=== PATIENT | male | born 1940 | race Caucasian/White ===

== ENCOUNTER 2016-08-09 13:30 | Inpatient (IN) ==
[2016-08-09] MEDS ORDERED: Vancomycin 1,000 MG in D5% in Water 250 ML IV ONE (13:57)
[2016-08-09] MEDS ORDERED: Levofloxacin 750 MG/150 ML 750 MG/150 ML BAG IVPB ONE (13:57)
[2016-08-09] MEDS ORDERED: Piperacillin/Tazobactam 4.5 GM in D5% in Water (Mini-Bag+) 100 ML IVPB ONE (13:57)
[2016-08-09] MEDS ORDERED: 0.9 % Sodium Chloride 1,000 ML ONE (13:57)
[2016-08-09] MEDS ORDERED: Ipratropium/Albuterol Neb 3 ML IH ONE (13:58)
--- NOTE | 2016-08-09 13:59 | Emergency Department Note ---
Disposition Clinical Impression: HCAP (healthcare-associated pneumonia), Encephalopathy acute, Severe sepsis Acute respiratory failure Qualifiers: Respiratory failure complication: hypoxia and hypercapnia Qualified Code(s): J96.01 - Acute respiratory failure with hypoxia Disposition: Admitted As Inpatient Condition: Fair Altered Mental Status HPI - General Chief Complaint: ED Altered Mental Status Stated Complaint: AMS Time Seen by Provider: 08/09/16 13:53 Source: EMS Mode of arrival: ambulatory Limitations: no limitations Nursing Notes Reviewed: Yes Vital Signs Reviewed: Yes - History of Present Illness HPI Narrative: 75-year-old male that presents from nursing facility, history of NIDDM, atrial fibrillation, hypertension, mention, presents with altered mental state, markedly hypoglycemic with a blood glucose of 40 at the nursing facility he was given 1 amp of D50, and his blood glucose on arrival was 95. Review systems is impossible to obtain from the historian as he is altered with a GCS of 9, patients states that he was in his normal health yesterday, and this is a precipitous decline in his function. They have no clear reason why. He was febrile with a temp of 103, history is mostly obtained from EMS and family who are at bedside, they state that he has been chronically debilitated, and progressively weak over the last few days but his show no signs of infection. MD complaint: altered mental status Onset (ago): unknown Context: recent fever, diabetes, other (Glycemia, recent fever) Treatments prior to arrival: glucose - Related Data Home Medications Medication Instructions Recorded Confirmed Acetaminophen [Tylenol Arthritis] 650 mg PO Q6H PRN 08/09/16 08/09/16 Aspirin Enteric Coated [Aspirin EC] 81 mg PO DAILY 08/09/16 08/09/16 Atorvastatin [Lipitor] 40 mg PO HS 08/09/16 08/09/16 Divalproex (24 HR) [Depakote ER 1,250 mg PO DAILY 08/09/16 08/09/16 (24 HR)] Donepezil HCl [Aricept] 10 mg PO DAILY 08/09/16 08/09/16 Furosemide [Lasix] 40 mg PO DAILY 08/09/16 08/09/16 Gabapentin [Neurontin] 100 mg PO BID 08/09/16 08/09/16 Glucagon,Human Recombinant 1 mg IM Q15M PRN 08/09/16 08/09/16 [Glucagon Emergency Kit] HYDROcodone/Acet 5/325 mg [[place] 1 tab PO Q6H PRN 08/09/16 08/09/16 5-325 mg] Insulin ASPART [NovoLOG] 2 - 10 unit SQ ACHS 08/09/16 08/09/16 Insulin Glargine,Hum.rec.anlog 45 unit SQ QAM 08/09/16 08/09/16 [Lantus Solostar] Insulin Glargine,Hum.rec.anlog 75 unit SQ HS 08/09/16 08/09/16 [Lantus Solostar] Losartan [Cozaar] 25 mg PO DAILY 08/09/16 08/09/16 Memantine HCl 10 mg PO BID 08/09/16 08/09/16 Sertraline [Zoloft] 150 mg PO DAILY 08/09/16 08/09/16 Tamsulosin [Flomax] 0.4 mg PO DAILY 08/09/16 08/09/16 Vitamin E (Dl,Tocopheryl Acet) 400 unit PO DAILY 08/09/16 08/09/16 [Vitamin E] Allergies Allergy/AdvReac Type Severity Reaction Status Date / Time No Known Allergies Allergy Verified 08/09/16 13:49 Limitations: ROS unobtainable due to patients medical condition Past Medical History - Past Medical History Attestation: Yes The following information was validated with the patient. Source: patient Medical history: Reports: arthritis, atrial fibrillation, CHF, COPD, coronary artery disease, dementia, diabetes, hypertension, renal disease, venous stasis Psychiatric history: Reports: anxiety, depression - Social History Smoking Status: Never smoker Drug use: Reports: none Physical Exam - General Limitations: altered mental status General appearance: lethargic, in distress (Acute respiratory distress), other - Head Head exam: atraumatic, normocephalic - Eye Eye exam: Present: PERRL - ENT ENT exam: mucous membranes dry - Neck Neck exam: Present: normal inspection, full ROM - Respiratory Respiratory exam: Present: respiratory distress (Severe respiratory distress, diminished breath sounds at the bases with crackles bibasilar crackles right greater than left). Absent: normal lung sounds bilaterally, wheezes - Cardiovascular Cardiovascular exam: Present: tachycardia, irregular rhythm (Atrial fibrillation ). Absent: regular rate - Abdominal Exam Abdominal exam: Present: Non-Tender. Absent: tenderness, distention - Expanded Lower Extremity Exam Neurovascular/Tendon exam: Absent: normal capillary refill (Delayed capillary refill greater than 2 seconds) - Neurological Exam Neurological exam: Present: CN II-XII intact (Grossly intact). Absent: alert, normal gait (An tested secondary to mental state), motor sensory deficit - Expanded Neurological Exam Patient oriented to: Absent: person, place, time Coma Scale Eye Opening: To Pain Coma Scale Motor Response: Localizes to Pain Coma Scale Verbal Response: Incomprehensible Coma Scale Total: 9 Course Course Narrative: 75-year-old male with a GCS of 9, presents altered mental status, with a episode of hypoglycemia at the nursing facility however on my exam he appears septic, he is markedly tachycardic, febrile with a temperature of 103 and therefore meet surge criteria suspect pneumonia given his lung findings of crackles bilaterally. We will start the patient on broad-spectrum antibiotics after blood cultures are charts, adding lactate, 30 mg a liter per kilogram boluses added with 3000 mL ordered for the patient, we will reassess after septic workup - Reevaluation(s) Reevaluation #1: Patient did receive a 30 mL per kilogram bolus plus or -10% with 3000 and also ordered and a weight of 102 kg, he does seem a little bit volume overloaded after this we place the patient on BiPAP just for respiratory function and repeated a portable chest x-ray to make sure that the patient is not a volume overload, repeat portable chest shows similar findings, no evidence of flash pulmonary edema, therefore will not diurese in the inpatient setting, I spoke with Dr. Christiansen, and he will admit the patient to the ICU service. Patient expresses to his family previously that he would be not a candidate for mechanical ventilation therefore we will only use BiPAP at this time to support breathing or respirations and no intubation Vital Signs Temperature 103.1 F H 08/09/16 13:40 Pulse Rate 101 08/09/16 13:40 Respiratory Rate 18 08/09/16 13:40 Blood Pressure 88/71 08/09/16 13:40 O2 Sat by Pulse Oximetry 84 L 08/09/16 13:40 Temperature 102.6 F H 08/09/16 18:05 Pulse Rate 78 08/09/16 18:16 Respiratory Rate 26 08/09/16 18:05 Blood Pressure 113/69 08/09/16 18:05 O2 Sat by Pulse Oximetry 97 08/09/16 18:05 Oxygen Delivery Oxygen Delivery Room Air Altered Mental Status - MDM Narrative Medical decision making narrative: 75-year-old male with age Pneumonia sepsis, altered mental state admitted [facility] critical condition - Differential Diagnosis Likely: alcoholic intoxication, hypoglycemia, hyponatremia, subarachnoid hemorrhage - Medical Records Medical records reviewed: Yes I reviewed the patient's medical records. - Lab Data Lab results reviewed: Yes I reviewed the patient's lab results. Result diagrams: 08/09/16 14:25 08/09/16 14:25 Lab Results 08/09/16 08/09/16 08/09/16 Range/Units 14:00 14:07 14:10 WBC (4.3-11.1) K/mcL RBC (4.19-5.50) M/mcL Hgb (12.9-16.9) g/dL Hct (37.5-50.1) % MCV (83.0-100.0) fL MCH (28.0-33.3) pg MCHC (31.6-35.5) g/dL RDW (11.5-14.5) % Plt Count (140-400) K/mcL MPV (9.4-12.4) fL Immature Gran % (0-4) % Seg Neutrophils % % Lymphocytes % % Monocytes % % Eosinophils % % Basophils % % Neutrophils # (1.6-8.9) K/mcL Lymphocytes # (0.6-4.6) K/mcL Monocytes # (0.0-1.3) K/mcL Eosinophils # (0.0-0.6) K/mcL Basophils # (0.0-0.2) K/mcL PT (9.4-12.1) Seconds INR APTT (26.0-36.0) Seconds ABG pH 7.39 (7.32-7.45) pH Units ABG pCO2 50 H (35-45) mmHg ABG pO2 137 H (85-104) mmHg ABG HCO3 30.3 H (21-27) mEQ/L ABG Total CO2 31.8 H (20-26) mEq/L ABG O2 Saturation 99 H (95-98) % ABG Base Excess 4.4 H (-2.0 to 3.0) mEq/L Blood Gas Modality NRB Inspired O2 100 % Sodium (136-145) mEq/L Potassium (3.5-4.5) mEq/L Chloride (98-109) mEq/L Carbon Dioxide (19-29) mEq/L BUN (8-26) mg/dL Creatinine (0.72-1.25) mg/dL Est GFR ( Amer) (> 60) Est GFR (Non-Af Amer) (> 60) BUN/Creatinine Ratio (6-26) Glucose (70-99) mg/dL POC Glucose 87 (58-89) Calculated Osmolality (280-300) Lactic Acid (0.5-2.2) mmol/L Calcium (8.6-10.8) mg/dL Phosphorus (2.3-4.7) mg/dL Magnesium (1.6-2.6) mg/dL Total Bilirubin (0.2-1.2) mg/dL Direct Bilirubin (0.0-0.5) mg/dL Indirect Bilirubin (0.0-1.2) mg/dL AST (5-34) Units/L ALT (0-55) Units/L Alkaline Phosphatase (38-126) Units/L Troponin I (0-0.03) ng/mL Serum Total Protein (6.0-8.3) g/dL Albumin (3.5-5.0) g/dL Globulin (2.4-3.5) g/dL Albumin/Globulin Ratio (1.1-2.2) Urine Color Yellow (Yellow) Urine Clarity Clear (Clear) Urine pH 7.5 (5.0-8.0) pH Units Ur Specific [place] 1.016 (1.010-1.025) Urine Protein 100 H (Neg-Trace) mg/dL Urine Glucose (UA) Normal (Normal) mg/dL Urine Ketones Negative (Negative) mg/dL Urine Blood Negative (Negative) Urine Nitrite Negative (Negative) Urine Bilirubin Negative (Negative) Urine Urobilinogen Normal (Normal) mg/dL Ur Leukocyte Esterase Negative (Negative) Urine Microscopic RBC 3-5 H (0-3) per hpf Urine Microscopic WBC 0-3 (0-3) per hpf Ur Squamous Epith Cells Few (None-Few) per lpf Ur Transition Epith Cell Few (None-Few) per hpf Urine Bacteria Few (None-Few) per hpf Hyaline Casts None Seen (None-Few) per lpf Ur Culture Indicated? NO (NO) 08/09/16 08/09/16 08/09/16 Range/Units 14:25 14:25 14:25 WBC 10.0 (4.3-11.1) K/mcL RBC 4.08 L (4.19-5.50) M/mcL Hgb 13.0 (12.9-16.9) g/dL Hct 40.7 (37.5-50.1) % MCV 99.8 (83.0-100.0) fL MCH 31.9 (28.0-33.3) pg MCHC 31.9 (31.6-35.5) g/dL RDW 13.4 (11.5-14.5) % Plt Count 145 (140-400) K/mcL MPV 10.6 (9.4-12.4) fL Immature Gran % 0.7 (0-4) % Seg Neutrophils % 78.5 % Lymphocytes % 9.5 % Monocytes % 10.9 % Eosinophils % 0.0 % Basophils % 0.4 % Neutrophils # 7.8 (1.6-8.9) K/mcL Lymphocytes # 1.0 (0.6-4.6) K/mcL Monocytes # 1.1 (0.0-1.3) K/mcL Eosinophils # 0.0 (0.0-0.6) K/mcL Basophils # 0.0 (0.0-0.2) K/mcL PT 12.8 H (9.4-12.1) Seconds INR 1.2 APTT 32.9 (26.0-36.0) Seconds ABG pH (7.32-7.45) pH Units ABG pCO2 (35-45) mmHg ABG pO2 (85-104) mmHg ABG HCO3 (21-27) mEQ/L ABG Total CO2 (20-26) mEq/L ABG O2 Saturation (95-98) % ABG Base Excess (-2.0 to 3.0) mEq/L Blood Gas Modality Inspired O2 % Sodium 142 (136-145) mEq/L Potassium 4.4 (3.5-4.5) mEq/L Chloride 106 (98-109) mEq/L Carbon Dioxide 26 (19-29) mEq/L BUN 23 (8-26) mg/dL Creatinine 1.79 H (0.72-1.25) mg/dL Est GFR ( Amer) 45 L (> 60) Est GFR (Non-Af Amer) 37 L (> 60) BUN/Creatinine Ratio 13 (6-26) Glucose 84 (70-99) mg/dL POC Glucose (58-89) Calculated Osmolality 297 (280-300) Lactic Acid (0.5-2.2) mmol/L Calcium 8.6 (8.6-10.8) mg/dL Phosphorus 2.7 (2.3-4.7) mg/dL Magnesium 1.9 (1.6-2.6) mg/dL Total Bilirubin 0.9 (0.2-1.2) mg/dL Direct Bilirubin 0.4 (0.0-0.5) mg/dL Indirect Bilirubin 0.5 (0.0-1.2) mg/dL AST 24 (5-34) Units/L ALT 10 (0-55) Units/L Alkaline Phosphatase 53 (38-126) Units/L Troponin I (0-0.03) ng/mL Serum Total Protein 7.2 (6.0-8.3) g/dL Albumin 3.0 L (3.5-5.0) g/dL Globulin 4.2 H (2.4-3.5) g/dL Albumin/Globulin Ratio 0.7 L (1.1-2.2) Urine Color (Yellow) Urine Clarity (Clear) Urine pH (5.0-8.0) pH Units Ur Specific [place] (1.010-1.025) Urine Protein (Neg-Trace) mg/dL Urine Glucose (UA) (Normal) mg/dL Urine Ketones (Negative) mg/dL Urine Blood (Negative) Urine Nitrite (Negative) Urine Bilirubin (Negative) Urine Urobilinogen (Normal) mg/dL Ur Leukocyte Esterase (Negative) Urine Microscopic RBC (0-3) per hpf Urine Microscopic WBC (0-3) per hpf Ur Squamous Epith Cells (None-Few) per lpf Ur Transition Epith Cell (None-Few) per hpf Urine Bacteria (None-Few) per hpf Hyaline Casts (None-Few) per lpf Ur Culture Indicated? (NO) 08/09/16 08/09/16 08/09/16 Range/Units 14:25 14:25 14:37 WBC (4.3-11.1) K/mcL RBC (4.19-5.50) M/mcL Hgb (12.9-16.9) g/dL Hct (37.5-50.1) % MCV (83.0-100.0) fL MCH (28.0-33.3) pg MCHC (31.6-35.5) g/dL RDW (11.5-14.5) % Plt Count (140-400) K/mcL MPV (9.4-12.4) fL Immature Gran % (0-4) % Seg Neutrophils % % Lymphocytes % % Monocytes % % Eosinophils % % Basophils % % Neutrophils # (1.6-8.9) K/mcL Lymphocytes # (0.6-4.6) K/mcL Monocytes # (0.0-1.3) K/mcL Eosinophils # (0.0-0.6) K/mcL Basophils # (0.0-0.2) K/mcL PT (9.4-12.1) Seconds INR APTT (26.0-36.0) Seconds ABG pH (7.32-7.45) pH Units ABG pCO2 (35-45) mmHg ABG pO2 (85-104) mmHg ABG HCO3 (21-27) mEQ/L ABG Total CO2 (20-26) mEq/L ABG O2 Saturation (95-98) % ABG Base Excess (-2.0 to 3.0) mEq/L Blood Gas Modality Inspired O2 % Sodium (136-145) mEq/L Potassium (3.5-4.5) mEq/L Chloride (98-109) mEq/L Carbon Dioxide (19-29) mEq/L BUN (8-26) mg/dL Creatinine (0.72-1.25) mg/dL Est GFR ( Amer) (> 60) Est GFR (Non-Af Amer) (> 60) BUN/Creatinine Ratio (6-26) Glucose (70-99) mg/dL POC Glucose 86 (58-89) Calculated Osmolality (280-300) Lactic Acid 2.6 H (0.5-2.2) mmol/L Calcium (8.6-10.8) mg/dL Phosphorus (2.3-4.7) mg/dL Magnesium (1.6-2.6) mg/dL Total Bilirubin (0.2-1.2) mg/dL Direct Bilirubin (0.0-0.5) mg/dL Indirect Bilirubin (0.0-1.2) mg/dL AST (5-34) Units/L ALT (0-55) Units/L Alkaline Phosphatase (38-126) Units/L Troponin I 0.08 H* (0-0.03) ng/mL Serum Total Protein (6.0-8.3) g/dL Albumin (3.5-5.0) g/dL Globulin (2.4-3.5) g/dL Albumin/Globulin Ratio (1.1-2.2) Urine Color (Yellow) Urine Clarity (Clear) Urine pH (5.0-8.0) pH Units Ur Specific [place] (1.010-1.025) Urine Protein (Neg-Trace) mg/dL Urine Glucose (UA) (Normal) mg/dL Urine Ketones (Negative) mg/dL Urine Blood (Negative) Urine Nitrite (Negative) Urine Bilirubin (Negative) Urine Urobilinogen (Normal) mg/dL Ur Leukocyte Esterase (Negative) Urine Microscopic RBC (0-3) per hpf Urine Microscopic WBC (0-3) per hpf Ur Squamous Epith Cells (None-Few) per lpf Ur Transition Epith Cell (None-Few) per hpf Urine Bacteria (None-Few) per hpf Hyaline Casts (None-Few) per lpf Ur Culture Indicated? (NO) 08/09/16 Range/Units 15:49 WBC (4.3-11.1) K/mcL RBC (4.19-5.50) M/mcL Hgb (12.9-16.9) g/dL Hct (37.5-50.1) % MCV (83.0-100.0) fL MCH (28.0-33.3) pg MCHC (31.6-35.5) g/dL RDW (11.5-14.5) % Plt Count (140-400) K/mcL MPV (9.4-12.4) fL Immature Gran % (0-4) % Seg Neutrophils % % Lymphocytes % % Monocytes % % Eosinophils % % Basophils % % Neutrophils # (1.6-8.9) K/mcL Lymphocytes # (0.6-4.6) K/mcL Monocytes # (0.0-1.3) K/mcL Eosinophils # (0.0-0.6) K/mcL Basophils # (0.0-0.2) K/mcL PT (9.4-12.1) Seconds INR APTT (26.0-36.0) Seconds ABG pH (7.32-7.45) pH Units ABG pCO2 (35-45) mmHg ABG pO2 (85-104) mmHg ABG HCO3 (21-27) mEQ/L ABG Total CO2 (20-26) mEq/L ABG O2 Saturation (95-98) % ABG Base Excess (-2.0 to 3.0) mEq/L Blood Gas Modality Inspired O2 % Sodium (136-145) mEq/L Potassium (3.5-4.5) mEq/L Chloride (98-109) mEq/L Carbon Dioxide (19-29) mEq/L BUN (8-26) mg/dL Creatinine (0.72-1.25) mg/dL Est GFR ( Amer) (> 60) Est GFR (Non-Af Amer) (> 60) BUN/Creatinine Ratio (6-26) Glucose (70-99) mg/dL POC Glucose (58-89) Calculated Osmolality (280-300) Lactic Acid 2.2 (0.5-2.2) mmol/L Calcium (8.6-10.8) mg/dL Phosphorus (2.3-4.7) mg/dL Magnesium (1.6-2.6) mg/dL Total Bilirubin (0.2-1.2) mg/dL Direct Bilirubin (0.0-0.5) mg/dL Indirect Bilirubin (0.0-1.2) mg/dL AST (5-34) Units/L ALT (0-55) Units/L Alkaline Phosphatase (38-126) Units/L Troponin I (0-0.03) ng/mL Serum Total Protein (6.0-8.3) g/dL Albumin (3.5-5.0) g/dL Globulin (2.4-3.5) g/dL Albumin/Globulin Ratio (1.1-2.2) Urine Color (Yellow) Urine Clarity (Clear) Urine pH (5.0-8.0) pH Units Ur Specific [place] (1.010-1.025) Urine Protein (Neg-Trace) mg/dL Urine Glucose (UA) (Normal) mg/dL Urine Ketones (Negative) mg/dL Urine Blood (Negative) Urine Nitrite (Negative) Urine Bilirubin (Negative) Urine Urobilinogen (Normal) mg/dL Ur Leukocyte Esterase (Negative) Urine Microscopic RBC (0-3) per hpf Urine Microscopic WBC (0-3) per hpf Ur Squamous Epith Cells (None-Few) per lpf Ur Transition Epith Cell (None-Few) per hpf Urine Bacteria (None-Few) per hpf Hyaline Casts (None-Few) per lpf Ur Culture Indicated? (NO) - Radiology Data Radiology results reviewed: Yes I reviewed the patient's radiology results. Chest X-Ray 08/09/16 15:30 IMPRESSION: Worsening perihilar airspace disease with asymmetry at the right lung base which may represent asymmetric edema, atelectasis or developing pneumonia. D/ / 08/09/2016 15:54:40 Gonzales Rasmussen MD / flavia Interpreting Provider: Gonzales Rasmussen MD Head CT 08/09/16 16:11 IMPRESSION: 1. No acute intracranial abnormality. 2. Global parenchymal volume loss with chronic microvascular ischemic change. 3. Atherosclerosis. D/ / Jonah Vaughn MD / Jonah Vaughn MD Interpreting Provider: Jonah Vaughn MD - EKG Data EKG attestation: Yes I reviewed and interpreted this EKG. Rate: tachycardia (90 bpm QRS 73 QTc 395) Rhythm: A.Fib TPA Checklist - LKW: 3-4.5 hrs Add. Contraindications Patient/family understanding: The patient/family members have been counseled and understood the risk, benefit , and alternatives of treatment. Attestation Statement - Attestation Attestation: I examined this patient and my medical decision-making was reviewed with the Resident Physician. I agree with the documented findings, disposition and treatment plan as described except to the extent set forth below. Presents from [facility]CF w fever, tachy, AMS, SBP 88. Normally awake and conversant although demented, today is non-verbal. GCS E1 V1 M4 on my exam, family confirms DNR-CCA/DNI status. Oxygenating well on NRB mask. RN working on 2nd IV. Fluid bolus ordered. Has rales on right, suspect HCAP as source of sepsis, triple antibiotic therapy ordered. Will monitor closely. BP came up immediately with fluids, hypertense since. Lactate mildly elevated at 2.6. No change in mental status. BGLs stabilized after D50 administration, checked q20 min x 3. Allergist/Immunologist evaluated pt in ED along with his team, admitting to ICU. Critical care time: I was directly and primarily involved in the care of this pt for 35 minutes excluding procedures.
[2016-08-09 14:08] LABS: Bilirubin,Urine Negative (Negative); Blood,Urine Negative (Negative); Clarity,Urine Clear (Clear); Color,Urine Yellow (Yellow); Glucose,Urine (UA) Normal (Normal); Ketones,Urine Negative (Negative); Leukocyte Esterase,Urine Negative (Negative); Nitrite,Urine Negative (Negative); PH,Urine 7.5 pH Units (5.0-8.0); Protein,Urine 100 mg/dL (Neg-Trace); Specific Gravity,Urine 1.016 (1.010-1.025); Urobilinogen,Urine Normal (Normal)
[2016-08-09 14:09] LABS: Hyaline Casts,Urine None Seen per lpf (None-Few); WBC,Urine 0-3 per hpf (0-3)
[2016-08-09] MEDS ORDERED: Acetaminophen 650 MG RECTAL SUPP RC ONE (14:09)
[2016-08-09] MEDS: 0.9 % Sodium Chloride 1,000 ML IVC SCH ×4 (14:10→19:20)
[2016-08-09 14:19] LABS: Squamous Epithelial Cell,Urine Few per lpf (None-Few)
[2016-08-09 14:21] LABS: Transitional Epi Cells,Urine Few per hpf (None-Few)
[2016-08-09 14:22] LABS: Bacteria,Urine Few per hpf (None-Few)
[2016-08-09 14:25] LABS: ABG Base Excess 4.4 mEq/L (-2.0 to 3.0); ABG HCO3 30.3 mEQ/L (21-27); ABG Oxygen Saturation 99 % (95-98); ABG PCO2 50 mmHg (35-45); ABG PH 7.39 pH Units (7.32-7.45); ABG PO2 137 mmHg (85-104); ABG TCO2 31.8 mEq/L (20-26)
[2016-08-09 14:27] LABS: Blood Gas FiO2 100 %
[2016-08-09 14:47] LABS: Basophils % 0.4 %; Hematocrit 40.7 % (37.5-50.1); Immature Granulocytes % 0.7 % (0-4); Lymphocytes % 9.5 %; Mean Corpuscular HGB Conc 31.9 g/dL (31.6-35.5); Mean Corpuscular Hemoglobin 31.9 pg (28.0-33.3); Mean Corpuscular Volume 99.8 fL (83.0-100.0); Mean Platelet Volume 10.6 fL (9.4-12.4); Monocytes # 1.1 K/mcL (0.0-1.3); Monocytes % 10.9 %; Neutrophils # 7.8 K/mcL (1.6-8.9); Platelet Count 145 K/mcL (140-400); Red Blood Count 4.08 M/mcL (4.19-5.50); Red Cell Distribution Width 13.4 % (11.5-14.5); Segmented Neutrophils % 78.5 %
[2016-08-09 14:50] LABS: INR 1.2; Prothrombin Time 12.8 Seconds (9.4-12.1)
[2016-08-09 14:53] LABS: Activated Partial Thrombo Time 32.9 Seconds (26.0-36.0)
[2016-08-09 15:00] LABS: Albumin/Globulin Ratio 0.7 (1.1-2.2); Bilirubin,Direct 0.4 mg/dL (0.0-0.5); Bilirubin,Indirect 0.5 mg/dL (0.0-1.2); Bilirubin,Total 0.9 mg/dL (0.2-1.2); Calcium 8.6 mg/dL (8.6-10.8); Globulin 4.2 g/dL (2.4-3.5); Magnesium 1.9 mg/dL (1.6-2.6); Phosphorous 2.7 mg/dL (2.3-4.7); Potassium 4.4 mEq/L (3.5-4.5); Total Protein 7.2 g/dL (6.0-8.3)
[2016-08-09] MEDS ORDERED: Naloxone 0.4 MG/ML INJ IVP PRN (16:22)
[2016-08-09] MEDS ORDERED: Acetaminophen 325 MG TABLET PO PRN (16:22)
[2016-08-09] MEDS ORDERED: Ondansetron 4 MG/2 ML VIAL IVP PRN (16:22)
[2016-08-09] MEDS ORDERED: *HR* Morphine 2 MG/ML SYRINGE IVP PRN (16:22)
[2016-08-09] MEDS ORDERED: D5% in Water 1,000 ML IV PRN (16:28)
[2016-08-09] MEDS ORDERED: Dextrose Gel 15 GM PO PRN ×2 (16:28)
[2016-08-09] MEDS ORDERED: *HR* Dextrose 50 % in Water (Syg) 50 ML SYRINGE IVP PRN (16:28)
--- NOTE | 2016-08-09 16:31 | Event Note ---
Date of Encounter: 08/09/16 Time of Encounter: 16:30 Critical care attending note: The patient was seen and examined with the house staff. Full resident note to follow: 1. Acute respiratory failure with hypoxia 2. Severe sepsis 3. Encephalopathy 4. Hypoglycemia 5. Nausea with vomiting 6. DNR status 75-year-old white male with a history of dementia and diabetes who presented to the emergency room from an extended care facility with altered mental status and hypoglycemia. Per the family, the patient had been in his normal state of health until this morning when he had nausea and vomiting and altered mental status. His blood sugar at the [facility] was in the 40s and was medically treated. Workup in the emergency room revealed sepsis with fever tachycardia, hypotension, and altered mental status. He was given IV fluids with good response and placed on BiPAP for refractory hypoxia (given his underlying dementia he has a DNR CCA DNR) Hypoxia may be related to pneumonia and pulmonary edema. We will attempt to wean off BiPAP to high flow nasal cannula. We will try to avoid prolonged use of BiPAP given his encephalopathy. Sepsis with possible source being pneumonia. He certainly at risk for aspiration pneumonia and we will continue Zosyn. Blood cultures pending. We will check an MRSA nasal probe and a flu swab. He has been adequately volume resuscitated and is now hypertensive. Lactate is only minimally elevated and we will trend. No current need for central venous catheter or vasopressors. Encephalopathy may be due to hypoglycemia. We will check serial blood sugars and treat with glucose as needed. Given the degree of his encephalopathy, I am concerned that he may have had a prolonged episode of hypoglycemia. We are in the process of obtaining a CT scan of the head for further evaluation. Continue supportive measures and minimize sedating medications. We did discuss goals of care with the family. If he were to continue to deteriorate we will transition to comfort measures only and DNR CC status.
[2016-08-09] MEDS ORDERED: Acetaminophen 650 MG RECTAL SUPP RC PRN (16:36)
--- NOTE | 2016-08-09 16:45 | Pulmonology History & Physical ---
Date of Encounter: 08/09/16 Time of Encounter: 16:40 Assessment and Plan (1) Altered mental status Current visit: Yes Status: Acute 75-year-old male presented with altered mental status. Patient was found to be hypoglycemic by EMS. He received 1 amp of D50. Furthermore patient came with elevated temperature, hypotension, tachypnea, and tachycardia, hypoxia. He was initially placed on supplemental oxygen without success. Eventually patient was placed on BiPAP and his oxygenation improved. Patient is DNR CC arrest DNI. Furthermore patient was given fluids for resuscitation which improved his hypotension. ABG indicated hypercapnia. Patient also has an elevated creatinine but has a history of kidney disease. Furthermore his troponins were elevated at 0.08. EKG : afib with rate 90. Initial lactate was 2.6. Chest x-ray indicated possible left lower lobe pneumonia. Initial Chest x-ray indicates possible left lower lobe pneumonia and repeat chest x-ray showed worsening right perihilar infiltrate versus edema. Patient was given vancomycin and Zosyn. Altered mental status may be secondary to pneumonia, hypoglycemia. -We will order a head CT, hawkins culture, and start patient on Zosyn to cover risk of aspiration. -Weaned off BiPAP to high flow nasal cannula. -Trend troponin. -100 mL an hour normal saline. -Patient will be nothing by mouth, every 6 hours Accu-Cheks, and low-dose sliding scale every 6h -GI and DVT prophylaxis. -Acetaminophen suppository when necessary fever. -Repeat ABG, CBC and BMP in the morning Qualifiers: Altered mental status type: unspecified Qualified Code(s): R41.82 - Altered mental status, unspecified (2) Sepsis Current visit: Yes Status: Acute Qualifiers: Sepsis type: sepsis due to unspecified organism Qualified Code(s): A41.9 - Sepsis, unspecified organism (3) Acute respiratory failure Current visit: Yes Status: Acute Qualifiers: Respiratory failure complication: hypoxia and hypercapnia Qualified Code(s) : J96.01 - Acute respiratory failure with hypoxia; J96.02 - Acute respiratory failure with hypercapnia (4) Community acquired pneumonia Current visit: Yes Status: Suspected (5) DVT prophylaxis Current visit: Yes Status: Acute (6) Hypoglycemia Current visit: Yes Status: Acute Resolved. Patient currently is nothing by mouth. Every 6 hours Accu-Cheks. (7) Diabetes mellitus Current visit: Yes Status: Acute Qualifiers: Diabetes mellitus type: type 2 Diabetes mellitus complication status: without complication Diabetes mellitus long distance operator insulin use: with long distance operator use Qualified Code(s): E11.9 - Type 2 diabetes mellitus without complications ; Z79.4 - terminal operator (current) use of insulin History of Present Illness Chief complaint: AMS HPI: Mr. Thrasher is a 75 year old male hx of a fib, CHF, dementia, diabetes, HTn, presented to ER with altered mental status, nausea, vomiting. Patients family said couple days back he was playing checkers. He was found hypoglycemic by EMS with glucose of 40 and was given an amp of close. Patient also presented with tachycardia, hypotension. He was resuscitated with fluids and put on BiPAP for hypoxia. During my encounter patient's vitals are stable after stated interventions. Past Med Surg Social Fam HX - Past Medical History Medical history: arthritis, atrial fibrillation, CHF, COPD, coronary artery disease, dementia, diabetes, hypertension, renal disease, venous stasis Psychiatric history: anxiety, depression - Social History Smoking Status: Never smoker Drug use: none Medications and Allergies Acetaminophen [Tylenol Arthritis] 650 mg PO Q6H PRN 08/09/16 [History] Aspirin Enteric Coated [Aspirin EC] 81 mg PO DAILY 08/09/16 [History] Atorvastatin [Lipitor] 40 mg PO HS 08/09/16 [History] Divalproex (24 HR) [Depakote ER (24 HR)] 1,250 mg PO DAILY 08/09/16 [History] Donepezil HCl [Aricept] 10 mg PO DAILY 08/09/16 [History] Furosemide [Lasix] 40 mg PO DAILY 08/09/16 [History] Gabapentin [Neurontin] 100 mg PO BID 08/09/16 [History] Glucagon,Human Recombinant [Glucagon Emergency Kit] 1 mg IM Q15M PRN 08/09/16 [ History] HYDROcodone/Acet 5/325 mg [[place] 5-325 mg] 1 tab PO Q6H PRN 08/09/16 [History] Insulin ASPART [NovoLOG] 2 - 10 unit SQ ACHS 08/09/16 [History] Insulin Glargine,Hum.rec.anlog [Lantus Solostar] 45 unit SQ QAM 08/09/16 [ History] Insulin Glargine,Hum.rec.anlog [Lantus Solostar] 75 unit SQ HS 08/09/16 [History ] Losartan [Cozaar] 25 mg PO DAILY 08/09/16 [History] Memantine HCl 10 mg PO BID 08/09/16 [History] Sertraline [Zoloft] 150 mg PO DAILY 08/09/16 [History] Tamsulosin [Flomax] 0.4 mg PO DAILY 08/09/16 [History] Vitamin E (Dl,Tocopheryl Acet) [Vitamin E] 400 unit PO DAILY 08/09/16 [History] Allergies No Known Allergies Allergy (Verified 08/09/16 13:49) ROS unobtainable: due to mental status All Systems: A 10-system review of systems was performed and is negative for pertinent findings except as documented above in the HPI. Physical Examination Vital Signs: Vital Signs, Last 4 Hours Pulse Resp BP Pulse Ox 08/09/16 16:19 93 24 122/69 97 General appearance: asleep, other (Unconscious) Eyes: nonicteric Mallampati (class): 3 Neck: no JVD Effort: mildly labored (On BiPAP), other Auscultation: left: clear, right: rales Cardiovascular: regular rate and rhythm Gastrointestinal: normoactive bowel sounds, soft, non-tender Integumentary: normal Extremities: no cyanosis, no edema, no clubbing, pulses normal unable to assess due to mental status Results - Laboratory Findings CBC and BMP: 08/09/16 14:25 08/09/16 14:25 ABG ABG pH 7.39 pH Units (7.32-7.45) 08/09/16 14:10 ABG pCO2 50 mmHg (35-45) H 08/09/16 14:10 ABG pO2 137 mmHg (85-104) H 08/09/16 14:10 ABG O2 Saturation 99 % (95-98) H 08/09/16 14:10 PT/INR, D-dimer PT 12.8 Seconds (9.4-12.1) H 08/09/16 14:25 Abnormal lab findings: Abnormal lab results RBC 4.08 M/mcL (4.19-5.50) L 08/09/16 14:25 PT 12.8 Seconds (9.4-12.1) H 08/09/16 14:25 ABG pCO2 50 mmHg (35-45) H 08/09/16 14:10 ABG pO2 137 mmHg (85-104) H 08/09/16 14:10 ABG HCO3 30.3 mEQ/L (21-27) H 08/09/16 14:10 ABG Total CO2 31.8 mEq/L (20-26) H 08/09/16 14:10 ABG O2 Saturation 99 % (95-98) H 08/09/16 14:10 ABG Base Excess 4.4 mEq/L (-2.0 to 3.0) H 08/09/16 14:10 Creatinine 1.79 mg/dL (0.72-1.25) H 08/09/16 14:25 Est GFR ( Amer) 45 (> 60) L 08/09/16 14:25 Est GFR (Non-Af Amer) 37 (> 60) L 08/09/16 14:25 Troponin I 0.08 ng/mL (0-0.03) H* 08/09/16 14:25 Albumin 3.0 g/dL (3.5-5.0) L 08/09/16 14:25 Globulin 4.2 g/dL (2.4-3.5) H 08/09/16 14:25 Albumin/Globulin Ratio 0.7 (1.1-2.2) L 08/09/16 14:25 Urine Protein 100 mg/dL (Neg-Trace) H 08/09/16 14:00 Urine Microscopic RBC 3-5 per hpf (0-3) H 08/09/16 14:00
[2016-08-09] MEDS: Insulin LISPRO 300 UNITS/3 ML VIAL SQ SCH (19:13)
[2016-08-09] MEDS: *HR* Heparin 5,000 UNIT/ML VIAL SQ SCH (19:19)
[2016-08-09 21:19] LABS: 2009 H1N1 PCR NOT DETECTED (Not Detect); Influenza A PCR Negative (Negative); Influenza B PCR Negative (Negative)
[2016-08-09] MEDS: Piperacillin/Tazobactam 3.375 GM in D5% in Water (Mini-Bag+) 100 ML IVPB SCH (23:35)
[2016-08-10] MEDS: Insulin LISPRO 300 UNITS/3 ML VIAL SQ SCH ×4 (00:04→16:39)
[2016-08-10 05:00] LABS: Hematocrit 33.6 % (37.5-50.1); Hemoglobin 10.7 g/dL (12.9-16.9); Immature Platelets 5.7 % (1.1-6.1); Mean Corpuscular HGB Conc 31.8 g/dL (31.6-35.5); Mean Corpuscular Hemoglobin 31.9 pg (28.0-33.3); Mean Corpuscular Volume 100.3 fL (83.0-100.0); Mean Platelet Volume 11.3 fL (9.4-12.4); Platelet Count 111 K/mcL (140-400); Red Blood Count 3.35 M/mcL (4.19-5.50); Red Cell Distribution Width 13.8 % (11.5-14.5)
[2016-08-10 05:01] LABS: INR 1.5; Prothrombin Time 16.2 Seconds (9.4-12.1)
[2016-08-10 05:03] LABS: Calcium 8.1 mg/dL (8.6-10.8); Potassium 4.8 mEq/L (3.5-4.5)
[2016-08-10 05:36] LABS: Lymphocytes # 3.1 K/mcL (0.6-4.6); Monocytes # 1.3 K/mcL (0.0-1.3); Neutrophils # 8.5 K/mcL (1.6-8.9); Platelet Estimate Decreased (Normal)
[2016-08-10] MEDS: 0.9 % Sodium Chloride 1,000 ML IVC SCH (05:45)
[2016-08-10 05:52] LABS: ABG Base Excess 1.4 mEq/L (-2.0 to 3.0); ABG HCO3 27.2 mEQ/L (21-27); ABG Oxygen Saturation 97 % (95-98); ABG PCO2 47 mmHg (35-45); ABG PH 7.37 pH Units (7.32-7.45); ABG PO2 89 mmHg (85-104); ABG TCO2 28.6 mEq/L (20-26); Blood Gas FiO2 36 %
[2016-08-10] MEDS: *HR* Heparin 5,000 UNIT/ML VIAL SQ SCH ×2 (06:03→16:30)
[2016-08-10] MEDS: Piperacillin/Tazobactam 3.375 GM in D5% in Water (Mini-Bag+) 100 ML IVPB SCH ×3 (09:12→23:19)
[2016-08-10] MEDS: Pantoprazole 40 MG VIAL IVPB SCH (09:12)
--- NOTE | 2016-08-10 09:40 | Pulmonology Progress Note ---
Date of Encounter: 08/10/16 Time of Encounter: 09:38 Assessment and Plan (1) Altered mental status Current Visit: Yes Status: Acute 75-year-old male presented with altered mental status. Patient was found to be hypoglycemic by EMS. He received 1 amp of D50. Furthermore patient came with elevated temperature, hypotension, tachypnea, and tachycardia, hypoxia. He was initially placed on supplemental oxygen without success. Eventually patient was placed on BiPAP and his oxygenation improved. Patient is DNR CC arrest DNI. Furthermore patient was given fluids for resuscitation which improved his hypotension. ABG indicated hypercapnia. Patient also has an elevated creatinine but has a history of kidney disease. Furthermore his troponins were elevated at 0.08. EKG : afib with rate 90. Initial lactate was 2.6. Chest x-ray indicated possible left lower lobe pneumonia. Initial Chest x-ray indicates possible left lower lobe pneumonia and repeat chest x-ray showed worsening right perihilar infiltrate versus edema. Patient was given vancomycin and Zosyn. Altered mental status may be secondary to pneumonia, hypoglycemia. -awake and alert to self only -Head Ct negative -Weaned off of BiPAP to 4L NC -pt/ot -Speech cleared patient for nectar thick diet. -Diabetic diet. Qualifiers: Altered mental status type: unspecified Qualified Code(s): R41.82 - Altered mental status, unspecified (2) Sepsis Current Visit: Yes Status: Acute Presented tachycardic, febrile, tachypnic -vital signs are normal now -X-ray showed possible r lobe pneumonia -Patient received vancomycin and Zosyn in the emergency department. -As patient arrived unconscious there is a possibility of aspiration -Sputum cultures preliminarily negative. -Continue Zosyn day 2. -d/c fluids. Qualifiers: Sepsis type: sepsis due to unspecified organism Qualified Code(s): A41.9 - Sepsis, unspecified organism (3) Acute respiratory failure Current Visit: Yes Status: Resolved resolved. 2nd to pneumonia. -continue abx and supplemental oxygen. Qualifiers: Respiratory failure complication: hypoxia and hypercapnia Qualified Code(s) : J96.01 - Acute respiratory failure with hypoxia; J96.02 - Acute respiratory failure with hypercapnia (4) Community acquired pneumonia Current Visit: Yes Status: Acute Currently treating with zosyn. Awaiting final results of culture and urine antigens. (5) DVT prophylaxis Current Visit: Yes Status: Acute heparin SQ (6) Hypoglycemia Current Visit: Yes Status: Resolved Resolved. Diabetic diet. ACHS accuchecks. Diabetic diet (7) Diabetes mellitus Current Visit: Yes Status: Acute continue low dose sliding scale. Qualifiers: Diabetes mellitus type: type 2 Diabetes mellitus complication status: without complication Diabetes mellitus tank terminal gauger insulin use: with usp use Qualified Code(s): E11.9 - Type 2 diabetes mellitus without complications ; Z79.4 - senior care (current) use of insulin (8) CKD (chronic kidney disease) Current Visit: Yes Status: Acute hx of CKD. Baseline creatinine is 1.79 Creatinine bumped to 2.3: KELSEY on CKD due to sepsis/hypotension Will continue to monitor with BMP. Qualifiers: Chronic kidney disease stage: stage 3 (moderate) Qualified Code(s): N18.3 - Chronic kidney disease, stage 3 (moderate) Subjective Principal diagnosis: Acute metabolic encephalopathy Interval history: Awake, alert. NO overnight events. Denies CP, sob, cough, nasuea, vomiting, abdominal pain. Objective PUL Vital signs: Last Vital Signs Temp 97.3 F L 08/10/16 07:46 Pulse 80 08/10/16 09:00 Resp 23 08/10/16 09:00 BP 118/89 08/10/16 09:00 Pulse Ox 99 08/10/16 09:00 General appearance: alert (to self only ) Eyes: nonicteric ENT: oropharynx moist Mallampati (class): 2 Effort: normal Auscultation: bilateral: clear Cardiovascular: regular rate and rhythm Gastrointestinal: normoactive bowel sounds, soft, non-tender Integumentary: normal Extremities: no cyanosis, no edema, no clubbing mood appropriate Results - Laboratory Findings CBC and BMP: 08/10/16 04:02 08/10/16 02:06 ABG ABG pH 7.37 pH Units (7.32-7.45) 08/10/16 04:36 ABG pCO2 47 mmHg (35-45) H 08/10/16 04:36 ABG pO2 89 mmHg (85-104) 08/10/16 04:36 ABG O2 Saturation 97 % (95-98) 08/10/16 04:36 PT/INR, D-dimer PT 16.2 Seconds (9.4-12.1) H 08/10/16 04:02 Abnormal lab findings: Abnormal lab results WBC 12.8 K/mcL (4.3-11.1) H 08/10/16 04:02 RBC 3.35 M/mcL (4.19-5.50) L 08/10/16 04:02 Hgb 10.7 g/dL (12.9-16.9) L D 08/10/16 04:02 Hct 33.6 % (37.5-50.1) L 08/10/16 04:02 MCV 100.3 fL (83.0-100.0) H 08/10/16 04:02 Plt Count 111 K/mcL (140-400) L 08/10/16 04:02 Band Neutrophils % 6.0 % (0-4) H 08/10/16 04:02 Platelet Estimate Decreased (Normal) L 08/10/16 04:02 PT 16.2 Seconds (9.4-12.1) H 08/10/16 04:02 ABG pCO2 47 mmHg (35-45) H 08/10/16 04:36 ABG HCO3 27.2 mEQ/L (21-27) H 08/10/16 04:36 ABG Total CO2 28.6 mEq/L (20-26) H 08/10/16 04:36 Potassium 4.8 mEq/L (3.5-4.5) H 08/10/16 02:06 BUN 34 mg/dL (8-26) H D 08/10/16 02:06 Creatinine 2.31 mg/dL (0.72-1.25) H 08/10/16 02:06 Est GFR ( Amer) 34 (> 60) L 08/10/16 02:06 Est GFR (Non-Af Amer) 28 (> 60) L 08/10/16 02:06 Glucose 151 mg/dL (70-99) H 08/10/16 02:06 POC Glucose 101 (58-89) H 08/09/16 23:32 Calculated Osmolality 303 (280-300) H 08/10/16 02:06 Calcium 8.1 mg/dL (8.6-10.8) L 08/10/16 02:06 Troponin I 0.15 ng/mL (0-0.03) H* 08/10/16 02:06 Albumin 3.0 g/dL (3.5-5.0) L 08/09/16 14:25 Globulin 4.2 g/dL (2.4-3.5) H 08/09/16 14:25 Albumin/Globulin Ratio 0.7 (1.1-2.2) L 08/09/16 14:25 Urine Protein 100 mg/dL (Neg-Trace) H 08/09/16 14:00 Urine Microscopic RBC 3-5 per hpf (0-3) H 08/09/16 14:00 - Microbiology Findings Microbiology Findings: Microbiology, Last 48 Hours 08/09/16 22:43 Sputum Culture - Final Sputum - Clinical Findings Intake & Output: Intake & Output 08/09/16 08/10/16 08/10/16 23:59 07:59 15:59 Intake Total 1100 / 1100 Output Total 425 / 425 200 / 200 Balance -425 / -425 900 / 900 Weight 94.3 kg - VTE Documentation of Mechanical Device: Intermittent pneumatic compression device Consult Discharge Plan - Plan Referrals: NO,PCP [Primary Care Provider] -
[2016-08-10 11:13] LABS: Uric Acid 6.1 mg/dL (3.5-7.2)
--- NOTE | 2016-08-10 12:48 | Electrocardiograph Report ---
[place] [id number] Test Date: 2016-08-09 Pat Name: Rhys Thrasher Department: 104 Room: [facility] Gender: M Automatic Hemmer: : 1940 Requested By: Ricardo Perry Order Number: [id number] Reading MD: Celestine Stallworth MD Measurements Intervals [place] Rate: 98 P: [place]: 0 QRS: 51 QRSD: 73 T: 245 QT: 339 QTc: 395 Interpretive Statements ATRIAL FIBRILLATION Electronically Signed On 08-10-2016 12:46:37 EDT by Celestine Stallworth MD
[2016-08-10 13:24] LABS: Creatinine,Urine 99 mg/dL
[2016-08-10 13:26] LABS: Potassium,Urine 81.6 mEq/L
[2016-08-10 13:27] LABS: Chloride,Urine < 20 mEq/L
[2016-08-10 13:29] LABS: Valproate 21.65 mcg/mL (50-100)
[2016-08-10] MEDS: Nystatin SUSP 5 ML UD.LIQ PO SCH ×2 (16:51→21:27)
[2016-08-10] MEDS ORDERED: Insulin LISPRO 300 UNITS/3 ML VIAL SQ SCH (21:00)
[2016-08-11] MEDS: *HR* Heparin 5,000 UNIT/ML VIAL SQ SCH ×2 (05:52→17:58)
[2016-08-11 06:06] LABS: Basophils # 0.1 K/mcL (0.0-0.2); Basophils % 0.5 %; Hematocrit 35.2 % (37.5-50.1); Immature Granulocytes % 1.7 % (0-4); Lymphocytes # 1.1 K/mcL (0.6-4.6); Lymphocytes % 11.3 %; Mean Corpuscular HGB Conc 32.1 g/dL (31.6-35.5); Mean Corpuscular Hemoglobin 31.9 pg (28.0-33.3); Mean Corpuscular Volume 99.4 fL (83.0-100.0); Mean Platelet Volume 11.8 fL (9.4-12.4); Monocytes # 1.5 K/mcL (0.0-1.3); Neutrophils # 6.7 K/mcL (1.6-8.9); Platelet Count 102 K/mcL (140-400); Red Blood Count 3.54 M/mcL (4.19-5.50); Red Cell Distribution Width 13.6 % (11.5-14.5); Segmented Neutrophils % 70.5 %
[2016-08-11 06:14] LABS: Hemoglobin 11.3 g/dL (12.9-16.9)
[2016-08-11 06:21] LABS: Albumin/Globulin Ratio 0.6 (1.1-2.2); Bilirubin,Total 0.8 mg/dL (0.2-1.2); Calcium 8.8 mg/dL (8.6-10.8); Globulin 4.1 g/dL (2.4-3.5); Total Protein 6.4 g/dL (6.0-8.3)
[2016-08-11 06:24] LABS: Albumin 2.3 g/dL (3.5-5.0)
[2016-08-11 06:26] LABS: Potassium 5.6 mEq/L (3.5-4.5)
[2016-08-11] MEDS: Insulin LISPRO 300 UNITS/3 ML VIAL SQ SCH ×6 (08:02→21:17)
[2016-08-11] MEDS: Nystatin SUSP 5 ML UD.LIQ PO SCH ×4 (08:20→21:17)
[2016-08-11] MEDS: Pantoprazole 40 MG VIAL IVPB SCH (08:20)
[2016-08-11] MEDS: Piperacillin/Tazobactam 3.375 GM in D5% in Water (Mini-Bag+) 100 ML IVPB SCH (08:20)
--- NOTE | 2016-08-11 08:30 | Pulmonology Progress Note ---
Date of Encounter: 08/11/16 Time of Encounter: 08:28 Assessment and Plan (1) Altered mental status Current Visit: Yes Status: Resolved 75-year-old male presented with altered mental status. Patient was found to be hypoglycemic by EMS. He received 1 amp of D50. Furthermore patient came with elevated temperature, hypotension, tachypnea, and tachycardia, hypoxia. He was initially placed on supplemental oxygen without success. Eventually patient was placed on BiPAP and his oxygenation improved. Patient is DNR CC arrest DNI. Furthermore patient was given fluids for resuscitation which improved his hypotension. ABG indicated hypercapnia. Patient also has an elevated creatinine but has a history of kidney disease. Furthermore his troponins were elevated at 0.08. EKG : afib with rate 90. Initial lactate was 2.6. CXR indicates pneumonia. Patient was given vancomycin and Zosyn. Altered mental status may be secondary to pneumonia, hypoglycemia. -resolved -awake and alert to self only -Head Ct negative -continue O2 supplementation. Can wean down -pt/ot -Speech cleared patient for nectar thick diet. -Diabetic diet. Qualifiers: Altered mental status type: unspecified Qualified Code(s): R41.82 - Altered mental status, unspecified (2) Sepsis Current Visit: Yes Status: Acute Presented tachycardic, febrile, tachypnic -vital signs are normal now -X-ray showed possible r lobe pneumonia -Patient received vancomycin and Zosyn in the emergency department. -As patient arrived unconscious there is a possibility of aspiration -Sputum cultures negative -Continue Zosyn day 3. Qualifiers: Sepsis type: sepsis due to unspecified organism Qualified Code(s): A41.9 - Sepsis, unspecified organism (3) Acute respiratory failure Current Visit: Yes Status: Resolved resolved. 2nd to pneumonia. -continue abx and supplemental oxygen. -duonebs Q6H PRN Qualifiers: Respiratory failure complication: hypoxia and hypercapnia Qualified Code(s) : J96.01 - Acute respiratory failure with hypoxia; J96.02 - Acute respiratory failure with hypercapnia (4) CKD (chronic kidney disease) Current Visit: Yes Status: Acute hx of CKD. Baseline creatinine is 1.79 Creatinine leveling off today it is 2.2: KELSEY on CKD due to sepsis/hypotension/ hypoperfusion Will continue to monitor with BMP. -d/c losartan start amlodipine. -hyperkalemic- given one kayexalate. Qualifiers: Chronic kidney disease stage: stage 3 (moderate) Qualified Code(s): N18.3 - Chronic kidney disease, stage 3 (moderate) (5) Community acquired pneumonia Current Visit: Yes Status: Acute Currently treating with zosyn. -wbc wnl Awaiting final results of culture -urine antigens negative (6) DVT prophylaxis Current Visit: Yes Status: Acute heparin SQ (7) Diabetes mellitus Current Visit: Yes Status: Acute Controlled. continue low dose sliding scale. Started on basal and prepradial insulin renal dosed CrCl- 40. Qualifiers: Diabetes mellitus type: type 2 Diabetes mellitus complication status: without complication Diabetes mellitus buttermaker helper insulin use: with custodial use Qualified Code(s): E11.9 - Type 2 diabetes mellitus without complications ; Z79.4 - shelter (current) use of insulin (8) Hypoglycemia Current Visit: Yes Status: Resolved Resolved. Diabetic diet. ACHS accuchecks. continue insulin regimen. Subjective Principal diagnosis: Acute metabolic encephalopathy Interval history: Patient eating breakfast this morning. Has no complaints. Objective PUL Vital signs: Last Vital Signs Temp 99.9 F H 08/11/16 07:43 Pulse 84 08/11/16 06:00 Resp 24 08/11/16 06:00 BP 150/78 08/11/16 06:00 Pulse Ox 97 08/11/16 06:00 General appearance: no acute distress, alert (to self ) Eyes: nonicteric ENT: oropharynx moist Mallampati (class): 2 Effort: normal Auscultation: left: rhonchi (upper lobe) Cardiovascular: irregular rhythm (afib regular rate) Gastrointestinal: normoactive bowel sounds, soft, non-tender Extremities: no cyanosis, no edema, no clubbing mood appropriate Results - Laboratory Findings CBC and BMP: 08/11/16 05:50 08/11/16 05:50 ABG ABG pH 7.37 pH Units (7.32-7.45) 08/10/16 04:36 ABG pCO2 47 mmHg (35-45) H 08/10/16 04:36 ABG pO2 89 mmHg (85-104) 08/10/16 04:36 ABG O2 Saturation 97 % (95-98) 08/10/16 04:36 PT/INR, D-dimer PT 16.2 Seconds (9.4-12.1) H 08/10/16 04:02 Abnormal lab findings: Abnormal lab results RBC 3.54 M/mcL (4.19-5.50) L 08/11/16 05:50 Hgb 11.3 g/dL (12.9-16.9) L 08/11/16 05:50 Hct 35.2 % (37.5-50.1) L 08/11/16 05:50 Plt Count 102 K/mcL (140-400) L 08/11/16 05:50 Band Neutrophils % 6.0 % (0-4) H 08/10/16 04:02 Monocytes # 1.5 K/mcL (0.0-1.3) H 08/11/16 05:50 Platelet Estimate Decreased (Normal) L 08/10/16 04:02 PT 16.2 Seconds (9.4-12.1) H 08/10/16 04:02 ABG pCO2 47 mmHg (35-45) H 08/10/16 04:36 ABG HCO3 27.2 mEQ/L (21-27) H 08/10/16 04:36 ABG Total CO2 28.6 mEq/L (20-26) H 08/10/16 04:36 Potassium 5.6 mEq/L (3.5-4.5) H 08/11/16 05:50 BUN 47 mg/dL (8-26) H D 08/11/16 05:50 Creatinine 2.20 mg/dL (0.72-1.25) H 08/11/16 05:50 Est GFR ( Amer) 36 (> 60) L 08/11/16 05:50 Est GFR (Non-Af Amer) 29 (> 60) L 08/11/16 05:50 Glucose 261 mg/dL (70-99) H 08/11/16 05:50 POC Glucose 199 (58-89) H 08/10/16 19:42 Calculated Osmolality 313 (280-300) H 08/11/16 05:50 AST 35 Units/L (5-34) H 08/11/16 05:50 Alkaline Phosphatase 36 Units/L (38-126) L 08/11/16 05:50 Ammonia 17 mcmol/L (18-72) L 08/10/16 10:44 Creatine Kinase 330 Units/L (30-200) H 08/10/16 10:44 Troponin I 0.11 ng/mL (0-0.03) H* 08/10/16 16:28 Albumin 2.3 g/dL (3.5-5.0) L D 08/11/16 05:50 Globulin 4.1 g/dL (2.4-3.5) H 08/11/16 05:50 Albumin/Globulin Ratio 0.6 (1.1-2.2) L 08/11/16 05:50 Urine Protein 100 mg/dL (Neg-Trace) H 08/09/16 14:00 Urine Microscopic RBC 3-5 per hpf (0-3) H 08/09/16 14:00 Valproic Acid 21.65 mcg/mL (50-100) L 08/10/16 10:44 - Microbiology Findings Microbiology Findings: Microbiology, Last 48 Hours 08/09/16 22:43 Sputum Culture - Final Sputum - Clinical Findings Intake & Output: Intake & Output 08/10/16 08/11/16 08/11/16 23:59 07:59 15:59 Intake Total 100 / 100 340 / 340 Output Total 600 / 600 500 / 500 Balance -500 / -500 -160 / -160 Weight 96 kg - VTE Documentation of Mechanical Device: Intermittent pneumatic compression device Consult Discharge Plan - Plan Referrals: NO,PCP [Primary Care Provider] -
[2016-08-11] MEDS ORDERED: Divalproex (24 HR) 250 MG TABLET PO SCH (09:00)
[2016-08-11] MEDS ORDERED: Furosemide 40 MG TABLET PO SCH (09:00)
[2016-08-11] MEDS ORDERED: amLODIPine 5 MG TABLET PO SCH (09:00)
[2016-08-11] MEDS ORDERED: Aspirin Enteric Coated 81 MG Tablet PO SCH (09:00)
[2016-08-11] MEDS ORDERED: Acetaminophen 650 MG RECTAL SUPP RC PRN (11:29)
[2016-08-11] MEDS ORDERED: D5% in Water 1,000 ML IV PRN (11:29)
[2016-08-11] MEDS ORDERED: Ondansetron 4 MG/2 ML VIAL IVP PRN (11:29)
[2016-08-11] MEDS ORDERED: Naloxone 0.4 MG/ML INJ IVP PRN (11:29)
[2016-08-11] MEDS ORDERED: Dextrose Gel 15 GM PO PRN ×2 (11:29)
[2016-08-11] MEDS ORDERED: *HR* Dextrose 50 % in Water (Syg) 50 ML SYRINGE IVP PRN (11:29)
[2016-08-11] MEDS ORDERED: Insulin LISPRO 300 UNITS/3 ML VIAL SQ SCH (12:00)
--- NOTE | 2016-08-11 16:32 | Electrocardiograph Report ---
[place] [id number] Test Date: 2016-08-09 Pat Name: Rhys Thrasher Department: 109 Room: [facility] Gender: M Home Coordinator: : 1940 Requested By: Nacho Tolbert Order Number: [id number] Reading MD: Natali Scott Measurements Intervals [place] Rate: 83 P: 62 MD: 298 QRS: 14 QRSD: 74 T: 50 QT: 366 QTc: 405 Interpretive Statements SINUS RHYTHM WITH FIRST DEGREE AV BLOCK NONSPECIFIC T-WAVE ABNORMALITY Electronically Signed On 08-11-2016 16:30:48 EDT by Natali Sctot
[2016-08-11] MEDS ORDERED: Insulin DETEMIR 100 UNIT/ML X5UNITS SQ SCH (21:00)
[2016-08-11] MEDS: Insulin DETEMIR 100 UNIT/ML X5UNITS SQ SCH (21:40)
[2016-08-12] MEDS: *HR* Heparin 5,000 UNIT/ML VIAL SQ SCH ×2 (05:43→16:51)
[2016-08-12] MEDS: Nystatin SUSP 5 ML UD.LIQ PO SCH ×4 (08:29→20:34)
[2016-08-12] MEDS: amLODIPine 5 MG TABLET PO SCH (08:29)
[2016-08-12] MEDS: Furosemide 40 MG TABLET PO SCH (08:30)
[2016-08-12] MEDS: Divalproex (24 HR) 250 MG TABLET PO SCH (08:31)
[2016-08-12] MEDS: Insulin LISPRO 300 UNITS/3 ML VIAL SQ SCH ×7 (08:31→20:34)
[2016-08-12] MEDS: Aspirin Enteric Coated 81 MG Tablet PO SCH (08:31)
[2016-08-12] MEDS: Pantoprazole 40 MG VIAL IVP SCH (08:32)
--- NOTE | 2016-08-12 17:12 | Internal Med Progress Note ---
Date of Encounter: 08/12/16 Time of Encounter: 14:15 - Assessment and plan (1) Acute respiratory failure Current Visit: Yes Status: Acute Assessment and plan: secondary to PNA and fluid overload from resuscitation. Not on oxygen at SNF. On admission, Chest x-ray shows left lower lobe pneumonia. Repeat chest x-ray showed worsening right perihilar infiltrate versus edema. Required BIPAP, now tolerating 4L high flow nasal cannula. continue ceftriaxone , furosemide, and nebs. Qualifiers: Respiratory failure complication: hypoxia Qualified Code(s): J96.01 - Acute respiratory failure with hypoxia (2) Community acquired pneumonia Current Visit: Yes Status: Acute Assessment and plan: bacterial pna. plan as above. (3) Encephalopathy acute Current Visit: Yes Status: Acute Assessment and plan: metabolic encephalopathy secondary to hypoglycemia, hypoxia, sepsis, pna in the setting on underlying dementia. improved. treating underlying etiology. (4) Acute renal failure superimposed on chronic kidney disease Current Visit: Yes Status: Acute Assessment and plan: unknown baseline kidney function. acute renal failure secondary to hypovolemia from sepsis and cardiorenal from fluid overload. adequate urine output. continue lasix. close monitor. avoid nephrotoxins as possible. (5) Hypoglycemia Current Visit: Yes Status: Resolved Assessment and plan: secondary to sepsis. resolved. (6) Sepsis Current Visit: Yes Status: Acute Assessment and plan: resolved. secondary to PNA. Qualifiers: Sepsis type: sepsis due to unspecified organism Qualified Code(s): A41.9 - Sepsis, unspecified organism (7) Dementia Current Visit: Yes Status: Acute Assessment and plan: at baseline. Qualifiers: Dementia type: unspecified type Dementia behavioral disturbance: without behavioral disturbance Qualified Code(s): F03.90 - Unspecified dementia without behavioral disturbance (8) CAD (coronary artery disease) Current Visit: Yes Status: Acute Assessment and plan: resume home meds. stable Qualifiers: Coronary Disease-Associated Artery/Lesion type: [place] artery [place] vs. transplanted heart: [place] heart Associated angina: without angina Qualified Code(s): I25.10 - Atherosclerotic heart disease of [place] coronary artery without angina pectoris (9) Diabetes mellitus Current Visit: Yes Status: Acute Assessment and plan: fasting glucose is 147. continue levemir 14 hs, sliding scale and diabetic diet. 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 - Constitutional Vitals: Temp Pulse Resp BP Pulse Ox 98.1 F 62 14 137/55 95 08/12/16 15:21 08/12/16 15:21 08/12/16 15:21 08/12/16 15:21 08/12/16 15:21 General appearance: Present: cooperative, no acute distress, answers questions appropriately - Eye Eye exam: Present: PERRL, sclera anicteric - ENT ENT exam: Present: mucous membranes moist - Neck Neck exam general surgery: Present: supple, trachea midline. Absent: lymphadenopathy - Respiratory Respiratory exam: Present: decreased breath sounds, rhonchi - Cardiovascular Cardiovascular exam: Present: RRR - GI/Abdominal GI/Abdominal exam: Present: soft. Absent: distended, tenderness - Extremities Exam Extremities exam: Present: pedal edema - Back Exam Back exam: Absent: CVA tenderness (L), CVA tenderness (R) - Neurological Exam Neurological exam: Present: alert. Absent: facial droop Additional comments: he is very weak but able to roll over to left side and take a few deep breaths. - Skin Skin exam: Present: dry Internal Medicine: Result - Labs CBC & Chem 7: 08/11/16 05:50 08/11/16 17:50 Labs: BMP 08/11/16 17:50 Potassium 4.3 D - ABG Interpretation ABG results: ABG ABG pH 7.37 pH Units (7.32-7.45) 08/10/16 04:36 ABG pCO2 47 mmHg (35-45) H 08/10/16 04:36 ABG pO2 89 mmHg (85-104) 08/10/16 04:36 ABG O2 Saturation 97 % (95-98) 08/10/16 04:36 PT/INR, D-dimer PT 16.2 Seconds (9.4-12.1) H 08/10/16 04:02 - VTE Documentation of Mechanical Device: Intermittent pneumatic compression device Consult Discharge Plan - Plan Referrals: NO,PCP [Primary Care Provider] -
[2016-08-12] MEDS: Insulin DETEMIR 100 UNIT/ML X5UNITS SQ SCH (20:34)
[2016-08-13] MEDS: *HR* Heparin 5,000 UNIT/ML VIAL SQ SCH ×2 (06:24→16:54)
[2016-08-13 06:35] LABS: Basophils % 0.4 %; Eosinophils % 0.3 %; Hematocrit 30.6 % (37.5-50.1); Hemoglobin 10.2 g/dL (12.9-16.9); Immature Granulocytes % 2.1 % (0-4); Lymphocytes # 1.2 K/mcL (0.6-4.6); Lymphocytes % 17.5 %; Mean Corpuscular HGB Conc 33.3 g/dL (31.6-35.5); Mean Platelet Volume 12.4 fL (9.4-12.4); Monocytes # 1.2 K/mcL (0.0-1.3); Monocytes % 17.5 %; Neutrophils # 4.2 K/mcL (1.6-8.9); Platelet Count 117 K/mcL (140-400); Red Blood Count 3.09 M/mcL (4.19-5.50); Red Cell Distribution Width 13.5 % (11.5-14.5); Segmented Neutrophils % 62.2 %
[2016-08-13 06:51] LABS: Calcium 8.3 mg/dL (8.6-10.8); Magnesium 1.9 mg/dL (1.6-2.6); Potassium 3.9 mEq/L (3.5-4.5)
[2016-08-13] MEDS: Furosemide 40 MG TABLET PO SCH (08:36)
[2016-08-13] MEDS: Aspirin Enteric Coated 81 MG Tablet PO SCH (08:36)
[2016-08-13] MEDS: amLODIPine 5 MG TABLET PO SCH (08:36)
[2016-08-13] MEDS: Divalproex (24 HR) 250 MG TABLET PO SCH (08:37)
[2016-08-13] MEDS: Pantoprazole 40 MG VIAL IVP SCH (08:37)
[2016-08-13] MEDS: Insulin LISPRO 300 UNITS/3 ML VIAL SQ SCH ×7 (08:37→20:27)
[2016-08-13] MEDS: Nystatin SUSP 5 ML UD.LIQ PO SCH ×4 (08:37→20:24)
--- NOTE | 2016-08-13 17:43 | Internal Med Progress Note ---
Date of Encounter: 08/13/16 Time of Encounter: 13:00 - Assessment and plan (1) Acute respiratory failure Current Visit: Yes Status: Acute Assessment and plan: secondary to PNA and fluid overload from resuscitation. Not on oxygen at SNF. On admission, Chest x-ray shows left lower lobe pneumonia. Repeat chest x-ray showed worsening right perihilar infiltrate versus edema. Required BIPAP. Clinically slowly improving, now tolerating 3L of oxygen via nasal cannula. Continue ceftriaxone, furosemide, and nebs. Qualifiers: Respiratory failure complication: hypoxia Qualified Code(s): J96.01 - Acute respiratory failure with hypoxia (2) Community acquired pneumonia Current Visit: Yes Status: Acute Assessment and plan: bacterial pna. plan as above. (3) Encephalopathy acute Current Visit: Yes Status: Acute Assessment and plan: metabolic encephalopathy secondary to hypoglycemia, hypoxia, sepsis, pna in the setting on underlying dementia. improved. treating underlying etiology. (4) Acute renal failure superimposed on chronic kidney disease Current Visit: Yes Status: Acute Assessment and plan: unknown baseline kidney function. acute renal failure secondary to hypovolemia from sepsis and cardiorenal from fluid overload. adequate urine output. kidney function is improving. continue lasix. close monitor. avoid nephrotoxins as possible. (5) Hypoglycemia Current Visit: Yes Status: Resolved Assessment and plan: secondary to sepsis. resolved. (6) Sepsis Current Visit: Yes Status: Acute Assessment and plan: resolved. secondary to PNA. Qualifiers: Sepsis type: sepsis due to unspecified organism Qualified Code(s): A41.9 - Sepsis, unspecified organism (7) Dementia Current Visit: Yes Status: Acute Assessment and plan: at baseline. Qualifiers: Dementia type: unspecified type Dementia behavioral disturbance: without behavioral disturbance Qualified Code(s): F03.90 - Unspecified dementia without behavioral disturbance (8) CAD (coronary artery disease) Current Visit: Yes Status: Acute Assessment and plan: resume home meds. stable Qualifiers: Coronary Disease-Associated Artery/Lesion type: [place] artery [place] vs. transplanted heart: [place] heart Associated angina: without angina Qualified Code(s): I25.10 - Atherosclerotic heart disease of [place] coronary artery without angina pectoris (9) Diabetes mellitus Current Visit: Yes Status: Acute Assessment and plan: fasting glucose is 154. continue levemir 14 hs, sliding scale and diabetic diet. 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 - Constitutional Vitals: Temp Pulse Resp BP Pulse Ox 98.7 F 56 16 148/65 97 08/13/16 15:38 08/13/16 15:38 08/13/16 15:38 08/13/16 15:38 08/13/16 15:38 General appearance: Present: cooperative, pleasant, no acute distress, answers questions appropriately - ENT ENT exam: Present: mucous membranes moist - Neck Neck exam general surgery: Present: supple, trachea midline. Absent: lymphadenopathy - Respiratory Respiratory exam: Present: rales (At lower lung [place].) - Cardiovascular Cardiovascular exam: Present: RRR - GI/Abdominal GI/Abdominal exam: Present: normal bowel sounds, soft. Absent: distended, tenderness - Extremities Exam Extremities exam: Absent: pedal edema - Back Exam Back exam: Absent: CVA tenderness (L), CVA tenderness (R) - Neurological Exam Neurological exam: Present: alert, oriented X3. Absent: facial droop, speech deficit - Skin Skin exam: Absent: rash Internal Medicine: Result - Labs CBC & Chem 7: 08/13/16 06:13 08/13/16 06:13 Labs: Short CBC 08/13/16 Range/Units 06:13 WBC 6.8 (4.3-11.1) K/mcL Hgb 10.2 L (12.9-16.9) g/dL Hct 30.6 L (37.5-50.1) % Plt Count 117 L (140-400) K/mcL Neutrophils # 4.2 (1.6-8.9) K/mcL BMP 08/13/16 06:13 Sodium 142 Potassium 3.9 Chloride 106 Carbon Dioxide 27 BUN 49 H Creatinine 1.68 H Glucose 170 H Calcium 8.3 L - ABG Interpretation ABG results: ABG ABG pH 7.37 pH Units (7.32-7.45) 08/10/16 04:36 ABG pCO2 47 mmHg (35-45) H 08/10/16 04:36 ABG pO2 89 mmHg (85-104) 08/10/16 04:36 ABG O2 Saturation 97 % (95-98) 08/10/16 04:36 PT/INR, D-dimer PT 16.2 Seconds (9.4-12.1) H 08/10/16 04:02 - VTE Documentation of Mechanical Device: Intermittent pneumatic compression device Consult Discharge Plan - Plan Referrals: NO,PCP [Primary Care Provider] -
[2016-08-13] MEDS: Insulin DETEMIR 100 UNIT/ML X5UNITS SQ SCH (20:25)
[2016-08-14 05:43] LABS: Calcium 8.2 mg/dL (8.6-10.8); Potassium 3.7 mEq/L (3.5-4.5)
[2016-08-14] MEDS: *HR* Heparin 5,000 UNIT/ML VIAL SQ SCH (05:59)
[2016-08-14] MEDS ORDERED: hydrALAZINE 25 MG TABLET PO SCH (08:00)
[2016-08-14] MEDS: Nystatin SUSP 5 ML UD.LIQ PO SCH (08:32)
[2016-08-14] MEDS: Divalproex (24 HR) 250 MG TABLET PO SCH (08:32)
[2016-08-14] MEDS: Aspirin Enteric Coated 81 MG Tablet PO SCH (08:32)
[2016-08-14] MEDS: amLODIPine 5 MG TABLET PO SCH (08:32)
[2016-08-14] MEDS: Pantoprazole 40 MG VIAL IVP SCH (08:34)
[2016-08-14] MEDS: Insulin LISPRO 300 UNITS/3 ML VIAL SQ SCH ×4 (08:34→11:30)
[2016-08-14] MEDS: Furosemide 40 MG TABLET PO SCH (08:34)
[2016-08-14] MEDS ORDERED: Insulin DETEMIR 100 UNIT/ML X5UNITS SQ SCH (09:00)
--- NOTE | 2016-08-14 09:24 | Discharge Summary ---
Date of Encounter: 08/14/16 Time of Encounter: 09:16 - Discharge Diagnosis (1) Acute respiratory failure Priority: Primary Status: Acute Qualifiers: Respiratory failure complication: hypoxia Qualified Code(s): J96.01 - Acute respiratory failure with hypoxia (2) Community acquired pneumonia Priority: Primary Status: Acute (3) Dysphagia, oropharyngeal phase Priority: Primary Status: Acute (4) Encephalopathy acute Priority: Primary Status: Acute (5) Acute renal failure superimposed on chronic kidney disease Priority: Primary Status: Acute (6) Hypoglycemia Priority: Primary Status: Resolved (7) Sepsis Priority: Primary Status: Resolved Qualifiers: Sepsis type: sepsis due to unspecified organism Qualified Code(s): A41.9 - Sepsis, unspecified organism (8) Diastolic heart failure Priority: Primary Status: Acute Qualifiers: Heart failure chronicity: acute on chronic Qualified Code(s): I50.33 - Acute on chronic diastolic (congestive) heart failure (9) Dementia Priority: Secondary Status: Chronic Qualifiers: Dementia type: unspecified type Dementia behavioral disturbance: without behavioral disturbance Qualified Code(s): F03.90 - Unspecified dementia without behavioral disturbance (10) CAD (coronary artery disease) Priority: Secondary Status: Chronic Qualifiers: Coronary Disease-Associated Artery/Lesion type: [place] artery [place] vs. transplanted heart: [place] heart Associated angina: without angina Qualified Code(s): I25.10 - Atherosclerotic heart disease of [place] coronary artery without angina pectoris (11) Diabetes mellitus Priority: Primary Status: Chronic Qualifiers: Diabetes mellitus type: type 2 Diabetes mellitus complication status: without complication Diabetes mellitus long-term insulin use: with long-term use Qualified Code(s): E11.9 - Type 2 diabetes mellitus without complications ; Z79.4 - alf (current) use of insulin - Discharge Medications Prescriptions: Ipratropium/Albuterol Neb [Duoneb] 3 ml IH Q8HR 30 Days CefTRIAXone [Rocephin] 1,000 mg IM DAILY 2 Days Home Medications: Acetaminophen [Tylenol Arthritis] 650 mg PO Q6H PRN 08/09/16 [History] Aspirin Enteric Coated [Aspirin EC] 81 mg PO DAILY 08/09/16 [History] Atorvastatin [Lipitor] 40 mg PO HS 08/09/16 [History] Divalproex (24 HR) [Depakote ER (24 HR)] 1,250 mg PO DAILY 08/09/16 [History] Donepezil HCl [Aricept] 10 mg PO DAILY 08/09/16 [History] Furosemide [Lasix] 40 mg PO DAILY 08/09/16 [History] Glucagon,Human Recombinant [Glucagon Emergency Kit] 1 mg IM Q15M PRN 08/09/16 [ History] HYDROcodone/Acet 5/325 mg [[place] 5-325 mg] 1 tab PO Q6H PRN 08/09/16 [History] Insulin ASPART [NovoLOG] 2 - 10 unit SQ ACHS 08/09/16 [History] Memantine HCl 10 mg PO BID 08/09/16 [History] Sertraline [Zoloft] 150 mg PO DAILY 08/09/16 [History] Tamsulosin [Flomax] 0.4 mg PO DAILY 08/09/16 [History] Vitamin E (Dl,Tocopheryl Acet) [Vitamin E] 400 unit PO DAILY 08/09/16 [History] Amlodipine [Norvasc] 5 mg PO DAILY tablet 08/14/16 [Rx] CefTRIAXone [Rocephin] 1,000 mg IM DAILY 2 Days 08/14/16 [Rx] Gabapentin [Neurontin] 100 mg PO DAILY #0 08/14/16 [Rx] HydrALAZINE 50 mg PO Q8HR tablet 08/14/16 [Rx] Insulin Glargine,Hum.rec.anlog [Lantus Solostar] 20 unit SQ QAM #0 08/14/16 [Rx ] Ipratropium/Albuterol Neb [Duoneb] 3 ml IH Q8HR 30 Days 08/14/16 [Rx] Allergies/Adverse Reactions: Allergies No Known Allergies Allergy (Verified 08/09/16 13:49) Date of admission: 08/09/16 16:14 Primary care physician: PCP NO Consults: 08/10/16 09:51 Consult to Speech Therapy [CONS] Routine Comment: Evaluate, develop and implement POC Reason for Consult: swallow eval Call Completed: No 08/11/16 07:54 Consult to Valuation Manager [CONS] Routine Reason for SW Consult: discharge planning to return [facility] - Patient Status Disposition: Transfer SNF Condition: Good Functional capacity at discharge: bed bound Overall status at discharge: patient is progressing back to baseline - Discharge Instructions Follow Up With: NO,PCP [Primary Care Provider] - - Diet and Activity Activity: as per physical therapy, wear oxygen at all times (3L NC) Diet: diabetic diet, low fat, low cholesterol Interval History: patient reports shortness of breath is better. no chest pain Hospital course: Mr. Thrasher is a 75 year old male with past medical history of dementia, diabetes mellitus, atrial fibrillation, diastolic heart failure, chronic kidney disease, and hypertension. He is a group home resident who was sent to our ED because of changes in mental status and hypoglycemia. At the group home, his glucose level was 40. In the ED, he was tachycardic, hypotensive and confused. He was treated for severe sepsis secondary to pneumonia with IV fluids, empiric antibiotics, BIPAP and intensive care unit management. Patient improved very slowly and was weaned down to 3 L of oxygen via nasal cannula. He also developed pulmonary edema from fluid resuscitation and required Lasix and fluid restriction. His mental status slowly improved as well as his kidney failure. His long-acting insulin requirements were adjusted. Speech therapy diagnosed patient with oropharyngeal dysphagia and recommended swallow treatments Sunday thru Sunday. PLAN: Continue ceftriaxone IM for 2 more days. check BP daily. close monitor of glucose level. speech therapy follow up. aspiration precautions. hospice consultation. - Time Spent with Patient Total time spent providing and/or coordinating discharge services: - Constitutional Vitals: Temp Pulse Resp BP Pulse Ox 98.2 F 63 18 160/74 96 08/14/16 07:10 08/14/16 07:10 08/14/16 07:10 08/14/16 07:10 08/14/16 07:10 General appearance: Present: cooperative, pleasant, no acute distress, answers questions appropriately - Eye Eye exam: Present: PERRL, sclera anicteric - Neck Neck exam general surgery: Present: supple, trachea midline. Absent: lymphadenopathy - Respiratory Respiratory exam: Present: rales (at lower lung field) - Cardiovascular Cardiovascular exam: Present: RRR - GI/Abdominal GI/Abdominal exam: Present: normal bowel sounds, soft. Absent: distended, tenderness - Extremities Exam Extremities exam: Absent: pedal edema - Back Exam Back exam: Absent: CVA tenderness (L), CVA tenderness (R) - Neurological Exam Neurological exam: Present: alert, oriented X3 - Skin Skin exam: Absent: rash - VTE Documentation of Mechanical Device: Intermittent pneumatic compression device
--- NOTE | 2016-08-14 09:57 | Physician Discharge Referral ---
ExtendedCare Referral Info Transfer To: SNF Provider in Charge: pawan Provider in Charge after Transfer: PCP Institutional Level of Care: Skilled - Diagnosis (1) Acute respiratory failure Status: Acute (2) Community acquired pneumonia Status: Acute (3) Dysphagia, oropharyngeal phase Status: Acute (4) Encephalopathy acute Status: Acute (5) Acute renal failure superimposed on chronic kidney disease Status: Acute (6) Hypoglycemia Status: Resolved (7) Sepsis Status: Resolved (8) Diastolic heart failure Status: Acute (9) Dementia Status: Chronic (10) CAD (coronary artery disease) Status: Chronic (11) Diabetes mellitus Status: Chronic - Transfer Medications Prescriptions: Ipratropium/Albuterol Neb [Duoneb] 3 ml IH Q8HR 30 Days CefTRIAXone [Rocephin] 1,000 mg IM DAILY 2 Days Home Medications: Acetaminophen [Tylenol Arthritis] 650 mg PO Q6H PRN 08/09/16 [History] Aspirin Enteric Coated [Aspirin EC] 81 mg PO DAILY 08/09/16 [History] Atorvastatin [Lipitor] 40 mg PO HS 08/09/16 [History] Divalproex (24 HR) [Depakote ER (24 HR)] 1,250 mg PO DAILY 08/09/16 [History] Donepezil HCl [Aricept] 10 mg PO DAILY 08/09/16 [History] Furosemide [Lasix] 40 mg PO DAILY 08/09/16 [History] Glucagon,Human Recombinant [Glucagon Emergency Kit] 1 mg IM Q15M PRN 08/09/16 [ History] HYDROcodone/Acet 5/325 mg [[place] 5-325 mg] 1 tab PO Q6H PRN 08/09/16 [History] Insulin ASPART [NovoLOG] 2 - 10 unit SQ ACHS 08/09/16 [History] Memantine HCl 10 mg PO BID 08/09/16 [History] Sertraline [Zoloft] 150 mg PO DAILY 08/09/16 [History] Tamsulosin [Flomax] 0.4 mg PO DAILY 08/09/16 [History] Vitamin E (Dl,Tocopheryl Acet) [Vitamin E] 400 unit PO DAILY 08/09/16 [History] Amlodipine [Norvasc] 5 mg PO DAILY tablet 08/14/16 [Rx] CefTRIAXone [Rocephin] 1,000 mg IM DAILY 2 Days 08/14/16 [Rx] Gabapentin [Neurontin] 100 mg PO DAILY #0 08/14/16 [Rx] HydrALAZINE 50 mg PO Q8HR tablet 08/14/16 [Rx] Insulin Glargine,Hum.rec.anlog [Lantus Solostar] 20 unit SQ QAM #0 08/14/16 [Rx ] Ipratropium/Albuterol Neb [Duoneb] 3 ml IH Q8HR 30 Days 08/14/16 [Rx] Allergies/Adverse Reactions: Allergies No Known Allergies Allergy (Verified 08/09/16 13:49) - Respiratory Orders Oxygen / L per min (3) Smoking Cessation: Smoking cessation has been advised. For more information, call the [place] Tobacco Quit Line at 9-880-SZER-NOW. - Lab Orders Lab Orders: Other (include drug levels w/frequency) ([facility] 08/16/16) - Ancillary Orders May use pressure relief devices daily prn - Advance Directives Code Status: DNR-Arrest/Don't Intubate - Mobility Orders Bedrest - Rehabiliation Orders Rehab Potential: Fair Rehab Orders: Evaluation for Physical Therapy, Evaluation for Occupational Therapy, Evaluation for Speech Therapy - Treatments List/Other: Continue ceftriaxone IM for 2 more days. check BP daily. losartan discontinued due to renal failure. close monitor of glucose level. aspiration precautions. hospice consultation. - Diet Orders No Concentrated Sweets (advanced soft diet chopped meat, diabetic.) CERTIFICATION: I certify that the transfer of the above named patient to an Extended Care Facility is necessary for the continuing treatment of the diagnosis listed. The above information is true and accurate reflection of patient's current condition. Confidential - Redisclosure prohibited without a patient's written consent.
[2016-08-14 11:08] VITALS: BP 165/46
== END 2016-08-14 12:37 | DRG 871 ==
LOC: EMEROO 13:30 → ICNU 16:14 → SUATTDRO 16:14 → ICNU 17:49 → 3NENU 08-11 16:59
PROVIDERS: ADMIT Internal Medicine; ATTEND Internal Medicine

== ENCOUNTER 2016-10-14 19:28 | Inpatient (IN) ==
[2016-10-14 20:26] LABS: Bilirubin,Urine Negative (Negative); Blood,Urine Negative (Negative); Clarity,Urine Clear (Clear); Color,Urine Dark Yellow (Yellow); Glucose,Urine (UA) Normal (Normal); Ketones,Urine Negative (Negative); Leukocyte Esterase,Urine Negative (Negative); Nitrite,Urine Negative (Negative); PH,Urine 6.5 pH Units (5.0-8.0); Protein,Urine 100 mg/dL (Neg-Trace); Specific Gravity,Urine 1.017 (1.010-1.025); Urobilinogen,Urine Normal (Normal)
[2016-10-14 20:28] LABS: Bacteria,Urine None Seen per hpf (None-Few); Hyaline Casts,Urine None Seen per lpf (None-Few); Squamous Epithelial Cell,Urine Many per lpf (None-Few); WBC,Urine 0-3 per hpf (0-3)
--- NOTE | 2016-10-14 20:32 | Emergency Department Note ---
Disposition Clinical Impression: Confusion Pulmonary edema Qualifiers: Chronicity: acute Qualified Code(s): J81.0 - Acute pulmonary edema Disposition: Admitted As Inpatient Condition: Good General Adult HPI - General Stated complaint: disoriented Time Seen by Provider: 10/14/16 19:44 Source: patient, family Mode of arrival: ambulatory Limitations: no limitations Nursing Notes Reviewed: Yes Vital Signs Reviewed: Yes - History of Present Illness HPI Narrative: Patient here for evaluation of confusion. Patient stays in a long term when family came to visit him today they were concerned that he has had a functional decline in status. It has been sometime since the family has seen the patient. The family asked the long term send the patient which they initially refused secondary to him having been stable from day-to-day. The patient declined that they have noticed has been his inability to feed himself this time. When he initially saw him he was hard to arouse and is not speaking as clearly as they remember. Patient at this time does not complain of any pain. There is no sign of any infection at this time there is no cough and there is no sign of skin infection. - Related Data Home Medications Medication Instructions Recorded Confirmed Acetaminophen [Tylenol Arthritis] 650 mg PO Q6H PRN 08/09/16 10/15/16 Aspirin Enteric Coated [Aspirin EC] 81 mg PO DAILY 08/09/16 10/15/16 Atorvastatin [Lipitor] 40 mg PO HS 08/09/16 10/15/16 Divalproex (24 HR) [Depakote ER 1,250 mg PO DAILY 08/09/16 10/15/16 (24 HR)] Donepezil HCl [Aricept] 10 mg PO DAILY 08/09/16 10/15/16 Furosemide [Lasix] 60 mg PO DAILY 08/09/16 10/15/16 Glucagon,Human Recombinant 1 mg IM Q15M PRN 08/09/16 10/15/16 [Glucagon Emergency Kit] HYDROcodone/Acet 5/325 mg [[place] 1 tab PO Q6H PRN 08/09/16 10/15/16 5-325 mg] Insulin ASPART [NovoLOG] 2 - 10 unit SQ ACHS 08/09/16 10/15/16 Memantine HCl 10 mg PO BID 08/09/16 10/15/16 Sertraline [Zoloft] 150 mg PO DAILY 08/09/16 10/15/16 Tamsulosin [Flomax] 0.4 mg PO DAILY 08/09/16 10/15/16 Vitamin E (Dl,Tocopheryl Acet) 400 unit PO DAILY 08/09/16 10/15/16 [Vitamin E] BuPROPion XL (24 HR) [Wellbutrin 150 mg PO DAILY 10/15/16 10/15/16 XL] Buspirone HCl [Buspar] 5 mg PO TID 10/15/16 10/15/16 Cholecalciferol (D-3) [Vitamin D] 5,000 unit PO DAILY 10/15/16 10/15/16 Lisinopril [Zestril] 10 mg PO DAILY 10/15/16 10/15/16 Magnesium Hydroxide [Milk of 2,400 mg PO DAILY PRN 10/15/16 10/15/16 Magnesia] Previous Rx's Medication Instructions Recorded Gabapentin [Neurontin] 100 mg PO DAILY #0 08/14/16 Insulin Glargine,Hum.rec.anlog 20 unit SQ QAM #0 08/14/16 [Lantus Solostar] amLODIPine [Norvasc] 5 mg PO DAILY tablet 08/14/16 hydrALAZINE [HydrALAZINE] 50 mg PO Q8HR tablet 08/14/16 Allergies Allergy/AdvReac Type Severity Reaction Status Date / Time No Known Allergies Allergy Verified 08/09/16 13:49 All systems ED: reviewed and negative except as stated. Constitutional: Denies: fever, chills Cardiovascular: Denies: chest pain, palpitations Respiratory: Denies: cough, dyspnea, wheezes Gastrointestinal: Denies: abdominal pain, nausea, vomiting Genitourinary: Denies: urgency, dysuria, frequency Musculoskeletal: Denies: back pain, neck pain Integumentary: Denies: rash, abrasion Neurological: Denies: headache, weakness Past Medical History - Past Medical History Medical history: Reports: arthritis, atrial fibrillation, CHF, COPD, coronary artery disease, dementia, diabetes, hypertension, renal disease, venous stasis Psychiatric history: Reports: anxiety, depression - Social History Smoking Status: Never smoker Drug use: Reports: none Physical Exam - General Limitations: no limitations General appearance: alert, in no apparent distress - Head Head exam: atraumatic, normocephalic - Eye Eye exam: Present: normal appearance, PERRL, EOMI - ENT ENT exam: normal exam, normal oropharynx - Neck Neck exam: Present: normal inspection, full ROM - Chest Chest inspection: Present: normal inspection, symmetric chest wall rise. Absent : tenderness - Respiratory Respiratory exam: Present: normal lung sounds bilaterally. Absent: respiratory distress, wheezes - Cardiovascular Cardiovascular exam: Present: regular rate, normal rhythm - Abdominal Exam Abdominal exam: Present: soft, Non-Tender - Male exam: Present: normal inspection. Absent: circumcised - Extremities Exam Extremities exam: Present: normal inspection. Absent: tenderness, pedal edema - Back Exam Back exam: Present: normal inspection. Absent: CVA tenderness (R), CVA tenderness (L) - Neurological Exam Neurological exam: Present: alert, CN II-XII intact. Absent: motor sensory deficit - Psychiatric Psychiatric exam: Present: normal affect, normal mood - Skin Skin exam: Present: warm, dry, intact, other (Minor abrasion to the right knee) Course - Reevaluation(s) Reevaluation #1: After discussion with the family the patient has had an acute change in status that seems to be partially resolved but not completely. Patient is on home oxygen at the long term and appears to be on 40 mg of Lasix daily. This time we will a BNP and troponin and bring the patient in for further observation. Reevaluation #2: BNP and troponin resulted prior to sign out. Troponin elevated at 0.08 which is chronically elevated. Patient denies having any chest pain at this time and has no acute EKG changes. We will continue to monitor. - Consultations Consultation #1: Discussed with Dr. Silva. Pt accepted for further evaluation and observaiton. Pulmonary edema and confusion. Vital Signs Temperature 99.3 F 10/14/16 19:45 Pulse Rate 78 10/14/16 19:45 Respiratory Rate 18 10/14/16 19:45 Blood Pressure 127/69 10/14/16 19:45 O2 Sat by Pulse Oximetry 96 10/14/16 19:45 Temperature 104.5 F H 10/15/16 17:20 Pulse Rate 109 10/15/16 18:00 Respiratory Rate 32 10/15/16 18:00 Blood Pressure 105/63 10/15/16 18:00 O2 Sat by Pulse Oximetry 94 10/15/16 18:00 Oxygen Delivery Oxygen Delivery Nasal Cannula Medical Decision Making - Medical Records Medical records reviewed: Yes I reviewed the patient's medical records. - Lab Data Lab results reviewed: Yes I reviewed the patient's lab results. Result diagrams: 10/15/16 17:01 10/15/16 17:01 Lab Results 10/14/16 10/14/16 10/14/16 Range/Units 19:38 20:10 20:57 WBC 8.5 (4.3-11.1) K/mcL RBC 2.85 L (4.19-5.50) M/mcL Hgb 9.3 L (12.9-16.9) g/dL Hct 28.6 L (37.5-50.1) % MCV 100.4 H (83.0-100.0) fL MCH 32.6 (28.0-33.3) pg MCHC 32.5 (31.6-35.5) g/dL RDW 13.4 (11.5-14.5) % Plt Count 143 (140-400) K/mcL MPV 11.2 (9.4-12.4) fL Immature Gran % 0.7 (0-4) % Seg Neutrophils % 68.6 % Lymphocytes % 14.9 % Monocytes % 15.4 % Eosinophils % 0.2 % Basophils % 0.2 % Neutrophils # 5.8 (1.6-8.9) K/mcL Lymphocytes # 1.3 (0.6-4.6) K/mcL Monocytes # 1.3 (0.0-1.3) K/mcL Eosinophils # 0.0 (0.0-0.6) K/mcL Basophils # 0.0 (0.0-0.2) K/mcL Sodium (136-145) mEq/L Potassium (3.5-4.5) mEq/L Chloride (98-109) mEq/L Carbon Dioxide (19-29) mEq/L BUN (8-26) mg/dL Creatinine (0.72-1.25) mg/dL Est GFR ( Amer) (> 60) Est GFR (Non-Af Amer) (> 60) BUN/Creatinine Ratio (6-26) Glucose (70-99) mg/dL POC Glucose 172 H (58-89) Calculated Osmolality (280-300) Calcium (8.6-10.8) mg/dL Total Bilirubin (0.2-1.2) mg/dL AST (5-34) Units/L ALT (0-55) Units/L Alkaline Phosphatase (38-126) Units/L Troponin I (0-0.03) ng/mL B-Natriuretic Peptide (0-100) pg/mL Serum Total Protein (6.0-8.3) g/dL Albumin (3.5-5.0) g/dL Globulin (2.4-3.5) g/dL Albumin/Globulin Ratio (1.1-2.2) Urine Color Dark Yellow (Yellow) Urine Clarity Clear (Clear) Urine pH 6.5 (5.0-8.0) pH Units Ur Specific [place] 1.017 (1.010-1.025) Urine Protein 100 H (Neg-Trace) mg/dL Urine Glucose (UA) Normal (Normal) mg/dL Urine Ketones Negative (Negative) mg/dL Urine Blood Negative (Negative) Urine Nitrite Negative (Negative) Urine Bilirubin Negative (Negative) Urine Urobilinogen Normal (Normal) mg/dL Ur Leukocyte Esterase Negative (Negative) Urine Microscopic RBC 3-5 H (0-3) per hpf Urine Microscopic WBC 0-3 (0-3) per hpf Ur Squamous Epith Cells Many H (None-Few) per lpf Urine Bacteria None Seen (None-Few) per hpf Hyaline Casts None Seen (None-Few) per lpf Ur Culture Indicated? NO (NO) 10/14/16 10/14/16 10/14/16 Range/Units 20:57 20:57 20:57 WBC (4.3-11.1) K/mcL RBC (4.19-5.50) M/mcL Hgb (12.9-16.9) g/dL Hct (37.5-50.1) % MCV (83.0-100.0) fL MCH (28.0-33.3) pg MCHC (31.6-35.5) g/dL RDW (11.5-14.5) % Plt Count (140-400) K/mcL MPV (9.4-12.4) fL Immature Gran % (0-4) % Seg Neutrophils % % Lymphocytes % % Monocytes % % Eosinophils % % Basophils % % Neutrophils # (1.6-8.9) K/mcL Lymphocytes # (0.6-4.6) K/mcL Monocytes # (0.0-1.3) K/mcL Eosinophils # (0.0-0.6) K/mcL Basophils # (0.0-0.2) K/mcL Sodium 141 (136-145) mEq/L Potassium 4.2 (3.5-4.5) mEq/L Chloride 101 (98-109) mEq/L Carbon Dioxide 28 (19-29) mEq/L BUN 17 (8-26) mg/dL Creatinine 1.64 H (0.72-1.25) mg/dL Est GFR ( Amer) 50 L (> 60) Est GFR (Non-Af Amer) 41 L (> 60) BUN/Creatinine Ratio 10 (6-26) Glucose 158 H (70-99) mg/dL POC Glucose (58-89) Calculated Osmolality 297 (280-300) Calcium 9.4 (8.6-10.8) mg/dL Total Bilirubin 1.0 (0.2-1.2) mg/dL AST 18 (5-34) Units/L ALT 9 (0-55) Units/L Alkaline Phosphatase 52 (38-126) Units/L Troponin I 0.08 H* (0-0.03) ng/mL B-Natriuretic Peptide 181 H (0-100) pg/mL Serum Total Protein 7.2 (6.0-8.3) g/dL Albumin 3.1 L (3.5-5.0) g/dL Globulin 4.1 H (2.4-3.5) g/dL Albumin/Globulin Ratio 0.8 L (1.1-2.2) Urine Color (Yellow) Urine Clarity (Clear) Urine pH (5.0-8.0) pH Units Ur Specific [place] (1.010-1.025) Urine Protein (Neg-Trace) mg/dL Urine Glucose (UA) (Normal) mg/dL Urine Ketones (Negative) mg/dL Urine Blood (Negative) Urine Nitrite (Negative) Urine Bilirubin (Negative) Urine Urobilinogen (Normal) mg/dL Ur Leukocyte Esterase (Negative) Urine Microscopic RBC (0-3) per hpf Urine Microscopic WBC (0-3) per hpf Ur Squamous Epith Cells (None-Few) per lpf Urine Bacteria (None-Few) per hpf Hyaline Casts (None-Few) per lpf Ur Culture Indicated? (NO) 10/15/16 Range/Units 00:51 WBC (4.3-11.1) K/mcL RBC (4.19-5.50) M/mcL Hgb (12.9-16.9) g/dL Hct (37.5-50.1) % MCV (83.0-100.0) fL MCH (28.0-33.3) pg MCHC (31.6-35.5) g/dL RDW (11.5-14.5) % Plt Count (140-400) K/mcL MPV (9.4-12.4) fL Immature Gran % (0-4) % Seg Neutrophils % % Lymphocytes % % Monocytes % % Eosinophils % % Basophils % % Neutrophils # (1.6-8.9) K/mcL Lymphocytes # (0.6-4.6) K/mcL Monocytes # (0.0-1.3) K/mcL Eosinophils # (0.0-0.6) K/mcL Basophils # (0.0-0.2) K/mcL Sodium (136-145) mEq/L Potassium (3.5-4.5) mEq/L Chloride (98-109) mEq/L Carbon Dioxide (19-29) mEq/L BUN (8-26) mg/dL Creatinine (0.72-1.25) mg/dL Est GFR ( Amer) (> 60) Est GFR (Non-Af Amer) (> 60) BUN/Creatinine Ratio (6-26) Glucose (70-99) mg/dL POC Glucose 194 H (58-89) Calculated Osmolality (280-300) Calcium (8.6-10.8) mg/dL Total Bilirubin (0.2-1.2) mg/dL AST (5-34) Units/L ALT (0-55) Units/L Alkaline Phosphatase (38-126) Units/L Troponin I (0-0.03) ng/mL B-Natriuretic Peptide (0-100) pg/mL Serum Total Protein (6.0-8.3) g/dL Albumin (3.5-5.0) g/dL Globulin (2.4-3.5) g/dL Albumin/Globulin Ratio (1.1-2.2) Urine Color (Yellow) Urine Clarity (Clear) Urine pH (5.0-8.0) pH Units Ur Specific [place] (1.010-1.025) Urine Protein (Neg-Trace) mg/dL Urine Glucose (UA) (Normal) mg/dL Urine Ketones (Negative) mg/dL Urine Blood (Negative) Urine Nitrite (Negative) Urine Bilirubin (Negative) Urine Urobilinogen (Normal) mg/dL Ur Leukocyte Esterase (Negative) Urine Microscopic RBC (0-3) per hpf Urine Microscopic WBC (0-3) per hpf Ur Squamous Epith Cells (None-Few) per lpf Urine Bacteria (None-Few) per hpf Hyaline Casts (None-Few) per lpf Ur Culture Indicated? (NO) - Radiology Data Radiology results reviewed: Yes I reviewed the patient's radiology results. - EKG Data EKG #1 EKG attestation: Yes I reviewed and interpreted this EKG. EKG results narrative: EKG shows sinus rhythm with ventricular rate of 34. NV interval 331. QRS 77. QTC 412. Patient has no significant ST elevations or depressions. No previous EKG for comparison. Attestation Statement - Attestation Attestation: I personally interviewed and examined this patient and my medical decision- making was reviewed with the ED Resident Physician, Dr. Hough. I agree with the documented findings, disposition and treatment plan as described except to the extent set forth below. Patient is a 76-year-old white male who is a DNR CCA, DO NOT INTUBATE with multiple medical problems who resides in an extended care facility for advanced dementia. Patient was brought by family in motor vehicle with concerns of acute mental status changes. Patient's and daughter at bedside and they state when they went to visit with him this evening that he is normally verbal, able to feed himself, and clear speech. They were concerned because today when he went to speak his speech was just garbled he could not understand anything he was saying, he was unable to function to purposefully uses her extremities, describes his appearance as "limp". Family states that he would not move his arms at all when squeezed her hands and seem functionally very diminished from his normal baseline. Patient with no fevers or chills, no signs of respiratory distress, no nausea vomiting or diarrhea, no other associated complaints. On initial assessment family was not at bedside and patient was awake alert and oriented 3 was able to tell us his name where he was located in what time of day it was. Patient with clear speech, moving all 4 extremities spontaneously, specifically able to raise and hold up against gravity both arms. Patient had no facial droop. Vital signs on arrival were stable. Patient with no signs of distress on arrival. History of physical exam findings as documented. EKG was taken on arrival, which was negative for any acute findings. Labs were drawn and sent for acute mental status change, patient was sent for CT head and verbal chest x-ray obtained. Patient's CT head was unremarkable. He has been resting comfortably with stable vital signs throughout his ED course. Labs overall are fairly baseline for him. No significant changes compared to prior labs. Chest x-ray shows mild pulmonary edema with trace bilateral pleural effusions. Currently patient's O2 saturations are 100% on his home 2 L nasal cannula, with no signs of respiratory distress. His chest x-ray shows mild pulmonary edema with trace pleural effusions. Patient was given Lasix IV. Patient with no signs of respiratory distress oxygen saturations are stable. Patient also with elevated troponin which is chronically elevated compared to his prior labs. Due to concerns of transient mental status change reported by family as well as trace pulmonary edema will admit the patient for further evaluation and treatment. Patient was admitted by the hospitalist.
[2016-10-14 21:06] LABS: Basophils % 0.2 %; Eosinophils % 0.2 %; Hematocrit 28.6 % (37.5-50.1); Hemoglobin 9.3 g/dL (12.9-16.9); Immature Granulocytes % 0.7 % (0-4); Lymphocytes # 1.3 K/mcL (0.6-4.6); Lymphocytes % 14.9 %; Mean Corpuscular HGB Conc 32.5 g/dL (31.6-35.5); Mean Corpuscular Hemoglobin 32.6 pg (28.0-33.3); Mean Corpuscular Volume 100.4 fL (83.0-100.0); Mean Platelet Volume 11.2 fL (9.4-12.4); Monocytes # 1.3 K/mcL (0.0-1.3); Monocytes % 15.4 %; Neutrophils # 5.8 K/mcL (1.6-8.9); Platelet Count 143 K/mcL (140-400); Red Blood Count 2.85 M/mcL (4.19-5.50); Red Cell Distribution Width 13.4 % (11.5-14.5); Segmented Neutrophils % 68.6 %
[2016-10-14 21:20] LABS: Albumin 3.1 g/dL (3.5-5.0); Albumin/Globulin Ratio 0.8 (1.1-2.2); Calcium 9.4 mg/dL (8.6-10.8); Globulin 4.1 g/dL (2.4-3.5); Potassium 4.2 mEq/L (3.5-4.5); Total Protein 7.2 g/dL (6.0-8.3)
[2016-10-14] MEDS ORDERED: Furosemide 40 MG/4 ML VIAL IVP ONE (22:50)
[2016-10-14] MEDS ORDERED: Aspirin 81 MG TAB.CHEW PO ONE (22:57)
[2016-10-15] MEDS ORDERED: Ondansetron 4 MG/2 ML VIAL IVP PRN ×2 (02:45→17:28)
[2016-10-15] MEDS ORDERED: Naloxone 0.4 MG/ML INJ IVP PRN ×2 (02:45→17:28)
[2016-10-15] MEDS ORDERED: Acetaminophen 325 MG TABLET PO PRN ×2 (02:45→17:28)
[2016-10-15] MEDS ORDERED: *HR* Dextrose 50 % in Water (Syg) 50 ML SYRINGE IVP PRN ×2 (02:47→17:28)
[2016-10-15] MEDS ORDERED: Dextrose Gel 15 GM PO PRN ×4 (02:47→17:28)
[2016-10-15] MEDS ORDERED: D5% in Water 1,000 ML IVC PRN ×2 (02:47→17:28)
--- NOTE | 2016-10-15 02:54 | Internal Med History&Physical ---
Date of Encounter: 10/15/16 Time of Encounter: 02:15 Assessment and Plan (1) Encephalopathy acute Current visit: Yes Status: Acute Likely hypoxic/metabolic due to pulmonary edema and hypoxia. Continue treatment of underlying causes and monitor closely. No fever or leukocytosis, low suspicion for infection at this time. Urinalysis is not suggestive of UTI. Follow-up blood cultures. Fall precautions. Supportive care. (2) Acute respiratory failure Current visit: Yes Status: Acute Chest x-ray shows right-sided pleural effusion and pulmonary edema. Probably cardiogenic. Continue supplemental oxygen and wean down FiO2 as tolerated. IV diuresis. Qualifiers: Respiratory failure complication: hypoxia Qualified Code(s): J96.01 - Acute respiratory failure with hypoxia (3) Diastolic heart failure Current visit: Yes Status: Acute Patient likely has acute on chronic congestive heart failure. Patient has hypoxia and chest x-ray shows pulmonary edema and pleural effusions. Start IV Lasix along with fluid restriction and monitor urine output closely. Continue PEDRO inhibitor and other home medications. Cautious use of beta milo due to current bradycardia, due to sleep. Check 2-D echocardiogram to assess left ventricular systolic function. Telemetry monitoring, cycle troponins. Qualifiers: Heart failure chronicity: acute on chronic Qualified Code(s): I50.33 - Acute on chronic diastolic (congestive) heart failure (4) Pulmonary edema Current visit: Yes Status: Acute Qualifiers: Chronicity: acute Qualified Code(s): J81.0 - Acute pulmonary edema (5) Atrial fibrillation Current visit: Yes Status: Chronic Previous records indicate history of paroxysmal atrial fibrillation, not noted to be on chronic anticoagulation, possibly due to age and fall risk. EKG today showed sinus arrhythmia and current telemetry shows sinus arrhythmia with bradycardia. Qualifiers: Atrial fibrillation type: paroxysmal Qualified Code(s): I48.0 - Paroxysmal atrial fibrillation (6) COPD (chronic obstructive pulmonary disease) Current visit: Yes Status: Chronic Not noted to be in acute exacerbation. Continue when necessary bronchodilators and supplemental oxygen. Qualifiers: COPD type: unspecified COPD Qualified Code(s): J44.9 - Chronic obstructive pulmonary disease, unspecified (7) Essential hypertension Current visit: Yes Status: Chronic (8) Anxiety Current visit: Yes Status: Chronic (9) Depression Current visit: Yes Status: Chronic Qualifiers: Depression Type: unspecified Qualified Code(s): F32.9 - Major depressive disorder, single episode, unspecified (10) Diabetes mellitus Current visit: Yes Status: Chronic Accu-Chek blood glucose monitoring with sliding scale insulin as needed. Diabetic pureed diet. Qualifiers: Diabetes mellitus type: type 2 Diabetes mellitus complication status: without complication Diabetes mellitus manager intermediate insulin use: with manager intermediate use Qualified Code(s): E11.9 - Type 2 diabetes mellitus without complications ; Z79.4 - half-way (current) use of insulin (11) CKD (chronic kidney disease) Current visit: Yes Status: Chronic Serum creatinine noted to be at baseline. Qualifiers: Chronic kidney disease stage: stage 3 (moderate) Qualified Code(s): N18.3 - Chronic kidney disease, stage 3 (moderate) (12) CAD (coronary artery disease) Current visit: Yes Status: Chronic Qualifiers: Coronary Disease-Associated Artery/Lesion type: [place] artery [place] vs. transplanted heart: [place] heart Associated angina: without angina Qualified Code(s): I25.10 - Atherosclerotic heart disease of [place] coronary artery without angina pectoris (13) Dementia Current visit: Yes Status: Chronic Qualifiers: Dementia type: unspecified type Dementia behavioral disturbance: without behavioral disturbance Qualified Code(s): F03.90 - Unspecified dementia without behavioral disturbance Internal Medicine - H&P: HPI Chief complaint: Lethargy, altered mental status Admitted From: Emergency Dept Plans for Post Hospital Care: Transfer [facility] Facility History of present illness: Mr. Thrasher is a 76 year old male custodial resident, with multiple medical problems, was sent for evaluation of confusion, altered mental status and lethargy. Patient was visited by his family, only visit him about once a month. Family noted a change in patient's behavior with inability to feed himself, appearing dull and mostly remaining nonverbal and weak. No reported fever, vomiting, diarrhea, shortness of breath or respiratory distress according to custodial records. Patient has underlying dementia and is currently extremely drowsy, unable to provide any history. History is obtained from emergency room notes and review of previous medical records. Patient was recently admitted to our hospital and treated for severe sepsis from possible aspiration pneumonia and was discharged back to the custodial. Past Med Surg Social Fam HX - Past Medical History Medical history: arthritis, atrial fibrillation, CHF, COPD, coronary artery disease, dementia, diabetes, hypertension, renal disease, venous stasis Psychiatric history: anxiety, depression - Past Surgical History Surgical History: no surgical history (Unable to obtain due to patient's mental status) - Social History Smoking Status: Never smoker Smokeless Tobacco Status: No Alcohol use: none Drug use: none Current living situation: ECF Additional social history: Unable to be obtained in detail due to patient's mental status - Family History Daughter Living Status: Still Living Hx Family Cardiac Disorders: No Hx Family Respiratory Disorders: No Hx Family Cancer: No Hx Family GI Disorders: No Hx Family Genitourinary Disorders: Yes (Chronic kidney disease) Internal Medicine - H&P: Meds Acetaminophen [Tylenol Arthritis] 650 mg PO Q6H PRN 08/09/16 [History] Aspirin Enteric Coated [Aspirin EC] 81 mg PO DAILY 08/09/16 [History] Atorvastatin [Lipitor] 40 mg PO HS 08/09/16 [History] Divalproex (24 HR) [Depakote ER (24 HR)] 1,250 mg PO DAILY 08/09/16 [History] Donepezil HCl [Aricept] 10 mg PO DAILY 08/09/16 [History] Furosemide [Lasix] 40 mg PO DAILY 08/09/16 [History] Glucagon,Human Recombinant [Glucagon Emergency Kit] 1 mg IM Q15M PRN 08/09/16 [ History] HYDROcodone/Acet 5/325 mg [[place] 5-325 mg] 1 tab PO Q6H PRN 08/09/16 [History] Insulin ASPART [NovoLOG] 2 - 10 unit SQ ACHS 08/09/16 [History] Memantine HCl 10 mg PO BID 08/09/16 [History] Sertraline [Zoloft] 150 mg PO DAILY 08/09/16 [History] Tamsulosin [Flomax] 0.4 mg PO DAILY 08/09/16 [History] Vitamin E (Dl,Tocopheryl Acet) [Vitamin E] 400 unit PO DAILY 08/09/16 [History] Gabapentin [Neurontin] 100 mg PO DAILY #0 08/14/16 [Rx] Insulin Glargine,Hum.rec.anlog [Lantus Solostar] 20 unit SQ QAM #0 08/14/16 [Rx ] Ipratropium/Albuterol Neb [Duoneb] 3 ml IH Q8HR 30 Days 08/14/16 [Rx] amLODIPine [Norvasc] 5 mg PO DAILY tablet 08/14/16 [Rx] cefTRIAXone [Rocephin] 1,000 mg IM DAILY 2 Days 08/14/16 [Rx] hydrALAZINE [HydrALAZINE] 50 mg PO Q8HR tablet 08/14/16 [Rx] Allergies No Known Allergies Allergy (Verified 08/09/16 13:49) All Systems PM: A 10-system review of systems was performed and is negative for pertinent findings except as documented above in the HPI. - Constitutional Constitutional: lethargy, malaise - EENT Eyes: no change in vision, no discharge, no pain, no photophobia Ears: no ear discharge, no ear pain, no tinnitus Nose, mouth and throat: no dysphagia, no nasal discharge, no neck pain, no sore throat - Cardiovascular Cardiovascular ROS IM: no chest pain, no diaphoresis, no dyspnea, no lightheadedness, no palpitations, no syncope - Respiratory Respiratory: no cough, no dyspnea, no wheezing, no excessive phlegm production - Gastrointestinal Gastrointestinal: no abdominal pain, no diarrhea, no hematemesis, no hematochezia, no melena, no nausea, no vomiting - Musculoskeletal Musculoskeletal ROS IM: no numbness, no tingling - Integumentary Integumentary IM: no rash, no unusual bruising - Neurological Neurological ROS: behavioral changes, confusion, no convulsions, no focal weakness, no numbness, no tingling, no tremor(s) - Hematologic/Lymphatic Hematologic/Lymphatic: no easy bruising - Constitutional Vitals: Temp Pulse Resp BP Pulse Ox 98.8 F 52 18 131/63 97 10/15/16 00:34 10/15/16 00:34 10/15/16 00:34 10/15/16 00:34 10/15/16 00:34 General appearance: Present: A&O X 0 (Somnolent and lethargic) - Respiratory Respiratory exam: Present: decreased breath sounds (Poor inspiratory effort, decreased sounds at bilateral bases). Absent: accessory muscle use, rales, rhonchi, wheezes - Cardiovascular Cardiovascular exam: Present: bradycardia, RRR, +S1, +S2. Absent: diastolic murmur, gallop, rubs, systolic murmur - GI/Abdominal GI/Abdominal exam: Present: normal bowel sounds, soft, no peritoneal signs. Absent: distended, tenderness - Extremities Exam Extremities exam: Present: warm, radial pulses palpable and symetrical. Absent : calf tenderness, cyanotic, pedal edema - Neurological Exam Neurological exam: Present: altered. Absent: pronater drift, facial droop, speech deficit Additional comments: Further examination cannot be completed due to patient's mental status - Skin Skin exam: Present: dry, intact Internal Med - H&P Results - Labs CBC & Chem 7: 10/14/16 20:57 10/14/16 20:57 - EKG Data -: EKG Interpreted by Myself EKG shows normal: sinus rhythm (Sinus arrhythmia) Rate: normal
[2016-10-15 05:47] LABS: Basophils % 0.5 %; Eosinophils # 0.1 K/mcL (0.0-0.6); Eosinophils % 1.2 %; Hematocrit 26.5 % (37.5-50.1); Hemoglobin 8.7 g/dL (12.9-16.9); Immature Granulocytes % 0.8 % (0-4); Lymphocytes # 1.1 K/mcL (0.6-4.6); Lymphocytes % 16.3 %; Mean Corpuscular HGB Conc 32.8 g/dL (31.6-35.5); Mean Corpuscular Hemoglobin 33.6 pg (28.0-33.3); Mean Corpuscular Volume 102.3 fL (83.0-100.0); Mean Platelet Volume 11.9 fL (9.4-12.4); Monocytes # 1.1 K/mcL (0.0-1.3); Neutrophils # 4.3 K/mcL (1.6-8.9); Nucleated Red Blood Cells 0.5 /100 WBC (0); Platelet Count 129 K/mcL (140-400); Red Blood Count 2.59 M/mcL (4.19-5.50); Red Cell Distribution Width 13.4 % (11.5-14.5); Segmented Neutrophils % 65.2 %
[2016-10-15] MEDS ORDERED: *HR* Heparin 5,000 UNIT/ML VIAL SQ SCH (06:00)
[2016-10-15 06:12] LABS: Calcium 9.2 mg/dL (8.6-10.8); Chol/HDL Ratio 4.2 (0-4.9); Magnesium 1.9 mg/dL (1.6-2.6); Phosphorous 3.7 mg/dL (2.3-4.7); Potassium 3.7 mEq/L (3.5-4.5)
[2016-10-15] MEDS: hydrALAZINE 25 MG TABLET PO SCH ×3 (06:38→23:47)
[2016-10-15] MEDS ORDERED: Furosemide 40 MG/4 ML VIAL IVP SCH (08:00)
[2016-10-15] MEDS ORDERED: Aspirin Enteric Coated 81 MG Tablet PO SCH (09:00)
[2016-10-15] MEDS ORDERED: Divalproex (24 HR) 250 MG TABLET PO SCH (09:00)
[2016-10-15] MEDS ORDERED: amLODIPine 5 MG TABLET PO SCH (09:00)
[2016-10-15] MEDS: Insulin LISPRO 300 UNITS/3 ML VIAL SQ SCH ×2 (09:26→12:39)
[2016-10-15] MEDS ORDERED: amLODIPine 5 MG TABLET PO ONE (12:25)
[2016-10-15] MEDS: BuPROPion XL (24 HR) 150 MG TABLET PO SCH ×2 (12:38→15:23)
[2016-10-15] MEDS ORDERED: Acetaminophen 650 MG RECTAL SUPP RC PRN ×2 (14:49→17:28)
[2016-10-15] MEDS ORDERED: Vancomycin 1,250 MG in D5% in Water 250 ML IVPB ONE ×2 (14:50→17:28)
--- NOTE | 2016-10-15 14:54 | Internal Med Progress Note ---
<Brigido Eden - Last Filed: 10/15/16 19:01> Date of Encounter: 10/15/16 Time of Encounter: 14:36 - Assessment and plan (1) Encephalopathy acute Current Visit: Yes Status: Acute Assessment and plan: Initially patient was seen by admitting hospitalist and was alert and oriented x 0. Head CT was negative for any acute changes. This morning during my evaluation he was alert and oriented to self and very conversational. Later this afternoon 2:30PM patient became more lethargic and unarousable. Temperature 104. His sPO2 decreased to <88 and he was put on a non-rebreather and O2 was increased to 15L. Nursing states family was feeding patient too quickly and he may have aspirated. repeat CXR shows new infiltrates in b/l upper lobes worse on left with improvement in pulmonary edema. 2nd to hypoxia 2nd to aspiration pneumonia, acute on chornic diastolic chf, complicated by underlying dementia and worsening anemia. Furthermore patient is on multiple medications at home that may cause drowsiness : Gabapentin and BuSpar. This part was started 30 days ago. d/c buspar. valproate level pending. repeat blood cultures, start zosyn, one dose of vancomycin, NPO, RC tynenol PRN fever. (2) Serotonin syndrome Current Visit: Yes Status: Suspected Assessment and plan: Patient is on zoloft, valproic acid, buspar. Fever of 104. myclonus, unarousable, hypertensive. given 2mg ativan which improved clonus temoprarily Given 12mg cyproheptadine with 2mg q2H PRN for symptom control. Neuro consulted: LP was done clear fluid given 500mg keppra for possible focal seizure tranferred to ICU 2 (3) Acute respiratory failure Current Visit: Yes Status: Acute Assessment and plan: 2nd to diastolic CHF exacerbation and aspiration pneumonia. Initially patient was lethargic and alert and oriented 0. Chest x-ray showed right-sided pleural effusion and pulmonary edema. He was started on Lasix and early this morning he became more alert and conversational. He was on his home dose of oxygen of 3 L and saturating well. Later in the afternoon, patient became unarousable, more lethargic and SPO2 dropped less than 88%. He was started on a nonrebreather and O2 was increased to 15 L. Repeat chest x-ray showed new infiltrates on the right and left upper lobes but more prominent on the right. He had a fever 104. Patient is started on Zosyn. Repeat blood cultures pending. Qualifiers: Respiratory failure complication: hypoxia Qualified Code(s): J96.01 - Acute respiratory failure with hypoxia (4) Diastolic heart failure Current Visit: Yes Status: Acute Assessment and plan: Continue diuresis with Lasix. Echocardiogram pending. Chest x-ray shows improvement in pulmonary venous congestion. Qualifiers: Heart failure chronicity: acute on chronic Qualified Code(s): I50.33 - Acute on chronic diastolic (congestive) heart failure (5) Aspiration pneumonia Current Visit: Yes Status: Acute Assessment and plan: We will start Zosyn. Repeat blood cultures. Patient will be kept nothing by mouth. Continue nonrebreather mask. Qualifiers: Aspiration pneumonia type: due to regurgitated food Laterality: bilateral Lung location: upper lobe of lung Qualified Code(s): J69.0 - Pneumonitis due to inhalation of food and vomit (6) Atrial fibrillation Current Visit: Yes Status: Chronic Assessment and plan: Rate controlled.not on bblocker or anticoagulation. hx of 2nd degree av block: will hold metoprolol for now. hx of colon mass and GI bleed hgb decreased from previous admission: will no start anticoauglation. Qualifiers: Atrial fibrillation type: paroxysmal Qualified Code(s): I48.0 - Paroxysmal atrial fibrillation (7) Dementia Current Visit: Yes Status: Chronic Qualifiers: Dementia type: unspecified type Dementia behavioral disturbance: without behavioral disturbance Qualified Code(s): F03.90 - Unspecified dementia without behavioral disturbance (8) Diabetes mellitus Current Visit: Yes Status: Chronic Assessment and plan: glucose stable. now NPO continue SSI. Qualifiers: Diabetes mellitus type: type 2 Diabetes mellitus complication status: without complication Diabetes mellitus retirement insulin use: with moth exterminator use Qualified Code(s): E11.9 - Type 2 diabetes mellitus without complications ; Z79.4 - halfway (current) use of insulin (9) Hypertension Current Visit: Yes Status: Acute Assessment and plan: BP increased to systloc 180 this morning increased amlodipine to 10mg daily. continue lasix and hydralazine. Qualifiers: Hypertension type: essential hypertension Qualified Code(s): I10 - Essential (primary) hypertension - Subjective Interval history: [facility] as family was concern about his decline in functional status. Patient has hx of dementia and is alert to self only. Patient was reported to be unable to feed himself, appear dull, and is nonverbal and weak. This is a change from baseline as patient is more active and conversational. Family sees patient once in a while. This morning patient was awake and alert to self. Was conversational. This afternoon his blood pressure increased to 180 systolic and he had mild temperature elevation of 100.4 and was given tynenol. Around 2:30 patient became more lethargic and repeat temperature was 104. Patients family was seen forcing patient to eat food as he has had a decreased appetite. Patient was admitted to [facility] in july for aspiration penumonia and hypoglycemia. - Constitutional Vitals: Temp Pulse Resp BP Pulse Ox 99.8 F H 91 16 193/90 94 10/15/16 11:47 10/15/16 11:47 10/15/16 11:47 10/15/16 11:47 10/15/16 11:47 General appearance: Present: A&O X 0 - Respiratory Additional comments: Morning lung exam: CTAB Lung Exam: diminished lung sounds, rales on left - Cardiovascular Cardiovascular exam: Present: irregular rhythm, +S1, +S2 - GI/Abdominal GI/Abdominal exam: Present: normal bowel sounds, soft, no peritoneal signs. Absent: distended, tenderness - Extremities Exam Extremities exam: Present: warm, radial pulses palpable and symetrical. Absent : calf tenderness, cyanotic, pedal edema - Neurological Exam Additional comments: not alert or oriented, difficult to arouse, Internal Medicine: Result - Labs CBC & Chem 7: 10/15/16 17:01 10/15/16 17:01 Labs: Short CBC 10/15/16 Range/Units 05:30 WBC 6.6 (4.3-11.1) K/mcL Hgb 8.7 L (12.9-16.9) g/dL Hct 26.5 L (37.5-50.1) % Plt Count 129 L (140-400) K/mcL Neutrophils # 4.3 (1.6-8.9) K/mcL BMP 10/15/16 05:30 Sodium 140 Potassium 3.7 Chloride 100 Carbon Dioxide 32 H BUN 19 Creatinine 1.72 H Glucose 183 H Calcium 9.2 Cardiac Enzymes 10/15/16 10/15/16 Range/Units 05:30 08:41 Troponin I 0.05 H* 0.04 H* (0-0.03) ng/mL Consult Discharge Plan - Plan Referrals: NO,PCP [Primary Care Provider] - <Brennan Casey - Last Filed: 10/16/16 15:47> Date of Encounter: 10/15/16 - Constitutional Vitals: Temp Pulse Resp BP Pulse Ox 98.4 F 75 18 133/66 98 10/16/16 15:34 10/16/16 13:00 10/16/16 13:00 10/16/16 13:00 10/16/16 13:00 Internal Medicine: Result - Labs CBC & Chem 7: 10/16/16 03:26 10/16/16 03:26 Labs: Short CBC 10/15/16 10/16/16 10/16/16 Range/Units 17:01 01:16 03:26 WBC 8.1 7.0 7.2 (4.3-11.1) K/mcL Hgb 10.7 L D 8.5 L D 8.4 L (12.9-16.9) g/dL Hct 33.5 L 26.9 L 25.9 L (37.5-50.1) % Plt Count 159 131 L 120 L (140-400) K/mcL Neutrophils # 6.9 4.9 5.5 (1.6-8.9) K/mcL BMP 10/15/16 10/16/16 10/16/16 17:01 01:16 03:26 Sodium 139 140 140 Potassium 4.3 3.6 3.6 Chloride 99 103 104 Carbon Dioxide 26 26 27 BUN 23 27 H 28 H Creatinine 1.79 H 2.03 H 2.02 H Glucose 328 H 216 H 236 H Calcium 9.7 8.6 8.5 L Liver Function 10/16/16 Range/Units 03:26 Total Bilirubin 1.2 (0.2-1.2) mg/dL AST 18 (5-34) Units/L ALT 8 (0-55) Units/L Alkaline Phosphatase 40 (38-126) Units/L Albumin 2.3 L D (3.5-5.0) g/dL - ABG Interpretation ABG results: ABG ABG pH 7.37 pH Units (7.32-7.45) 10/16/16 01:12 ABG pCO2 52 mmHg (35-45) H 10/16/16 01:12 ABG pO2 90 mmHg (85-104) 10/16/16 01:12 ABG O2 Saturation 97 % (95-98) 10/16/16 01:12 - Impressions Impressions KUB X-Ray 10/15/16 17:46 IMPRESSION: Nasogastric tube extends to the expected location of stomach. D/ / Nima Duran MD / Nima Duran MD Interpreting Provider: Nima Duran MD Chest X-Ray 10/16/16 01:26 IMPRESSION: 1. Slight worsening of right basilar airspace disease. Otherwise, the bilateral airspace disease is stable. 2. Nasogastric tube in the stomach. D/ / Mayur Metcalf MD / Mayur Metcalf MD Interpreting Provider: Mayur Metcalf MD Chest X-Ray 10/16/16 03:03 IMPRESSION: 1. Satisfactory positioning of the right IJ central line. No pneumothorax. 2. Worsening bilateral airspace disease, likely a combination of pulmonary edema and pneumonia. 3. New small pleural effusions. D/ / Mayur Metcalf MD / Mayur Metcalf MD Interpreting Provider: Mayur Metcalf MD Head CT 10/16/16 10:30 IMPRESSION: 1. Stable global atrophy and chronic small vessel ischemic disease. 2. No acute intracranial hemorrhage, hydrocephalus, or evidence of an evolving infarct. D/ / 10/16/2016 11:08:20 Kumar Mercer MD / [facility] Interpreting Provider: Kumar Mercer MD - Attending Attestation I examined this patient and my medical decision-making was reviewed with the Resident Physician on 10/15/16. I agree with the documented findings, disposition and treatment plan as described except to the extent set forth below. Pt was admitted earlier today. Please see event note of today. Plan Transfer to ICU Please see transfer information.
[2016-10-15] MEDS ORDERED: Vancomycin 1,250 MG in D5% in Water 250 ML IVPB SCH (15:30)
[2016-10-15] MEDS ORDERED: Piperacillin/Tazobactam 3.375 GM in D5% in Water (Mini-Bag+) 100 ML IVPB SCH (16:00)
[2016-10-15] MEDS ORDERED: *HR* LORazepam 2 MG/ML VIAL IVP ONE ×5 (16:04→18:19)
[2016-10-15] MEDS ORDERED: Cyprohepatdine 4 MG TABLET PO ONE ×2 (16:06→17:28)
[2016-10-15] MEDS ORDERED: 0.9 % Sodium Chloride 1,000 ML ONE (16:57)
[2016-10-15 17:10] LABS: Basophils % 0.4 %; Eosinophils % 0.1 %; Hematocrit 33.5 % (37.5-50.1); Immature Granulocytes % 0.5 % (0-4); Lymphocytes # 0.5 K/mcL (0.6-4.6); Lymphocytes % 5.7 %; Mean Corpuscular HGB Conc 31.9 g/dL (31.6-35.5); Mean Corpuscular Hemoglobin 32.1 pg (28.0-33.3); Mean Corpuscular Volume 100.6 fL (83.0-100.0); Mean Platelet Volume 11.7 fL (9.4-12.4); Monocytes # 0.6 K/mcL (0.0-1.3); Monocytes % 7.6 %; Neutrophils # 6.9 K/mcL (1.6-8.9); Platelet Count 159 K/mcL (140-400); Red Blood Count 3.33 M/mcL (4.19-5.50); Red Cell Distribution Width 13.2 % (11.5-14.5); Segmented Neutrophils % 85.7 %
[2016-10-15 17:18] LABS: Hemoglobin 10.7 g/dL (12.9-16.9)
[2016-10-15 17:25] LABS: Calcium 9.7 mg/dL (8.6-10.8); Potassium 4.3 mEq/L (3.5-4.5)
[2016-10-15 17:35] LABS: ABG Base Excess 5.4 mEq/L (-2.0 to 3.0); ABG HCO3 30.5 mEQ/L (21-27); ABG Oxygen Saturation 95 % (95-98); ABG PCO2 46 mmHg (35-45); ABG PH 7.43 pH Units (7.32-7.45); ABG PO2 76 mmHg (85-104); ABG TCO2 31.9 mEq/L (20-26)
[2016-10-15 17:37] LABS: Blood Gas FiO2 100 %
--- NOTE | 2016-10-15 17:45 | Neurology - Consult Note ---
Date of Encounter: 10/15/16 Time of Encounter: 17:48 Assessment and Plan (1) Altered mental status Current Visit: No Status: Resolved Altered mental status etiology uncertain, my primary concern and suspicion is that he may have experienced an episode of cerebral hypoxia due to aspiration. I am concerned about this particularly due to the myoclonic jerks and he does not have a history of seizures. Certainly serotonin syndrome is a possibility, I also like to rule out the possibility of a central nervous system infectious process. He may have toxic metabolic encephalopathy due to infectious processes elsewhere. My plan is to perform lumbar puncture. We will very loaded him on Keppra, CT scan of the head has been completed and was unrevealing. I anticipate MRI scan of the head in the morning as well as EEG of his status does not return to baseline. Case was discussed with family as well as with the medicine attending. Time spent delivering critical care this patient was 90 minutes. The documentation in the history of HPI and plan were at least partially created by [employer] voice recognition technology by Dr. Overton. Errors in grammar, wording or other phrases may exist. If errors are found after the documentation signed, they will be addressed individually in the addendum section of this document when appropriate. Qualifiers: Altered mental status type: unspecified Qualified Code(s): R41.82 - Altered mental status, unspecified History of Present Illness HPI: Mr. Thrasher is a 76 year old male who is being seen for neurologic consultation secondary to acute mental status changes. He is a [facility] patient with a history of dementia however he is generally awake alert and interactive. His states however he does not always give appropriate answers to questions but is usually conversive. Apparently his level of awareness has been declining over the last dose so in the family is concerned and transfer him to the [facility] for further assessment. His level of consciousness has progressed to being unresponsive. He was tachycardic and had a temp of 104. Systolic blood pressure had increased to 180. I did witness jerking activity of both upper extremities however it seemed to be more prominent on the left. At one point his eyes seemed to deviate toward the left. His tone appeared to be equal in both upper extremities. Apparently he had vomited earlier and is also concerned as to whether or not he might have aspirated. However today he was awake and alert. Because this event onset so rapidly I am concerned the possibility of perhaps hypoxia secondary to aspiration. However since his temples so elevated we will rule out the possibility of a central nervous system infectious process. WBCs today were 8.1, RBCs 3.33 hemoglobin slightly low at 10.7 MCV is elevated at 100.6. Sodium 141, potassium 4.2, chloride 101, carbon dioxide 28. The 117 , creatinine elevated at 1.79. Glucose is elevated at 328. ALT and AST were 9 and 18 respectively. Past Med Surg Social Fam HX - Past Medical History Medical history: arthritis, atrial fibrillation, CHF, COPD, coronary artery disease, dementia, diabetes, hypertension, renal disease, venous stasis Psychiatric history: anxiety, depression - Past Surgical History Surgical History: no surgical history (Unable to obtain due to patient's mental status) - Social History Smoking Status: Never smoker Smokeless Tobacco Status: No Alcohol use: none Drug use: none - Family History Daughter Living Status: Still Living Hx Family Cardiac Disorders: No Hx Family Respiratory Disorders: No Hx Family Cancer: No Hx Family GI Disorders: No Hx Family Genitourinary Disorders: Yes (Chronic kidney disease) Medications and Allergies Acetaminophen [Tylenol Arthritis] 650 mg PO Q6H PRN 08/09/16 [History] Aspirin Enteric Coated [Aspirin EC] 81 mg PO DAILY 08/09/16 [History] Atorvastatin [Lipitor] 40 mg PO HS 08/09/16 [History] Divalproex (24 HR) [Depakote ER (24 HR)] 1,250 mg PO DAILY 08/09/16 [History] Donepezil HCl [Aricept] 10 mg PO DAILY 08/09/16 [History] Furosemide [Lasix] 60 mg PO DAILY 08/09/16 [History] Glucagon,Human Recombinant [Glucagon Emergency Kit] 1 mg IM Q15M PRN 08/09/16 [ History] HYDROcodone/Acet 5/325 mg [[place] 5-325 mg] 1 tab PO Q6H PRN 08/09/16 [History] Insulin ASPART [NovoLOG] 2 - 10 unit SQ ACHS 08/09/16 [History] Memantine HCl 10 mg PO BID 08/09/16 [History] Sertraline [Zoloft] 150 mg PO DAILY 08/09/16 [History] Tamsulosin [Flomax] 0.4 mg PO DAILY 08/09/16 [History] Vitamin E (Dl,Tocopheryl Acet) [Vitamin E] 400 unit PO DAILY 08/09/16 [History] Gabapentin [Neurontin] 100 mg PO DAILY #0 08/14/16 [Rx] Insulin Glargine,Hum.rec.anlog [Lantus Solostar] 20 unit SQ QAM #0 08/14/16 [Rx ] amLODIPine [Norvasc] 5 mg PO DAILY tablet 08/14/16 [Rx] hydrALAZINE [HydrALAZINE] 50 mg PO Q8HR tablet 08/14/16 [Rx] BuPROPion XL (24 HR) [Wellbutrin XL] 150 mg PO DAILY 10/15/16 [History] Buspirone HCl [Buspar] 5 mg PO TID 10/15/16 [History] Cholecalciferol (D-3) [Vitamin D] 5,000 unit PO DAILY 10/15/16 [History] Lisinopril [Zestril] 10 mg PO DAILY 10/15/16 [History] Magnesium Hydroxide [Milk of Magnesia] 2,400 mg PO DAILY PRN 10/15/16 [History] Allergies No Known Allergies Allergy (Verified 08/09/16 13:49) ROS unobtainable: due to mental status All Systems: A 10-system review of systems was performed and is negative for pertinent findings except as documented above in the HPI. Physical Examination - Vital Signs Vital Signs: Initial Vital Signs Temp Pulse Resp BP Pulse Ox 99.3 F 78 18 127/69 96 10/14/16 19:45 10/14/16 19:45 10/14/16 19:45 10/14/16 19:45 10/14/16 19:45 - Exam Exam: Neurologic examination was performed and find the following: Mental status assessment-patient has waxing and waning levels of consciousness , however, he does have what I feel is likely gegenhalten rigidity. He does not follow commands. He has no spontaneous eye opening at present. He is not making any verbalizations. I did have to sedate him for a lumbar puncture in order to get him to relax. Cranial nerves-pupils are equal and reactive to light and accommodation. Doll' s eyes maneuvers are intact. There is no facial asymmetry is identified. He is breathing on his own without difficulty. Motor exam finds increased tone of the upper and lower extremities bilaterally I believe this is gegenhalten rigidity. There are occasional myoclonic jerks of both upper extremities. Deep tendon reflexes-there is no clonus identified no Babinski present. Results - Laboratory Findings CBC and BMP: 10/15/16 17:01 10/15/16 17: Abnormal lab findings: Abnormal lab results RBC 3.33 M/mcL (4.19-5.50) L 10/15/16 17: Hgb 10.7 g/dL (12.9-16.9) L D 10/15/16 17: Hct 33.5 % (37.5-50.1) L 10/15/16 17: MCV 100.6 fL (83.0-100.0) H 10/15/16 17: Lymphocytes # 0.5 K/mcL (0.6-4.6) L 10/15/16 17: Nucleated RBCs/100 WBC 0.5 /100 WBC (0) H 10/15/16 05:30 ABG pCO2 46 mmHg (35-45) H 10/15/16 17:25 ABG pO2 76 mmHg (85-104) L 10/15/16 17:25 ABG HCO3 30.5 mEQ/L (21-27) H 10/15/16 17:25 ABG Total CO2 31.9 mEq/L (20-26) H 10/15/16 17:25 ABG Base Excess 5.4 mEq/L (-2.0 to 3.0) H 10/15/16 17:25 Creatinine 1.79 mg/dL (0.72-1.25) H 10/15/16 17: Est GFR ( Amer) 45 (> 60) L 10/15/16 17: Est GFR (Non-Af Amer) 37 (> 60) L 10/15/16 17: Glucose 328 mg/dL (70-99) H 10/15/16 17: POC Glucose 312 (58-89) H 10/15/16 17:22 Calculated Osmolality 304 (280-300) H 10/15/16 17: Troponin I 0.06 ng/mL (0-0.03) H* 10/15/16 14:31 B-Natriuretic Peptide 181 pg/mL (0-100) H 10/14/16 20:57 Albumin 3.1 g/dL (3.5-5.0) L 10/14/16 20:57 Globulin 4.1 g/dL (2.4-3.5) H 10/14/16 20:57 Albumin/Globulin Ratio 0.8 (1.1-2.2) L 10/14/16 20:57 HDL Cholesterol 32 mg/dL (40-59) L 10/15/16 05:30 Urine Protein 100 mg/dL (Neg-Trace) H 10/14/16 20:10 Urine Microscopic RBC 3-5 per hpf (0-3) H 10/14/16 20:10 Ur Squamous Epith Cells Many per lpf (None-Few) H 10/14/16 20:10 Valproic Acid 36.24 mcg/mL (50-100) L 10/15/16 14:31 Consult Discharge Plan - Plan Referrals: NO,PCP [Primary Care Provider] -
[2016-10-15] MEDS: 0.9 % Sodium Chloride 1,000 ML IVC SCH (17:50)
[2016-10-15] MEDS ORDERED: *HR* LORazepam 2 MG/ML VIAL ONE (17:51)
[2016-10-15] MEDS ORDERED: Cyprohepatdine 4 MG TABLET PO SCH (18:00)
[2016-10-15] MEDS ORDERED: Cyprohepatdine 4 MG TABLET PO PRN (18:00)
--- NOTE | 2016-10-15 18:30 | Procedure Note ---
Date of procedure: 10/15/16 Pre-op diagnosis: encephalopathy Post-op diagnosis: same Procedure: A time-out was completed verifying correct patient, procedure, site, positioning , and special equipment if applicable. The patient was placed in the left lateral decubitus position in a semi- position with help from the nursing staff. The area was cleansed and draped in usual sterile fashion. 1% lidocaine was used anesthetize the surrounding skin area. A 20-gauge 3.5-inch spinal needle was placed in the L2-L3 interspace. Clear cerebral spinal fluid was obtained. The opening pressure was not measured. Three tubes were filled with 2 mL of CSF. These were sent for the usual tests, including 1 tube to be held for further analysis if needed. Dr. Overton was present for the entire procedure Anesthesia: local Surgeon: Brigido Eden Acid Conditioning Worker: Rajinder Overton Estimated blood loss (cc): 1 Condition: critical Disposition: ICU
--- NOTE | 2016-10-15 18:47 | Event Note ---
Date of Encounter: 10/15/16 Time of Encounter: 16:00 Mr Thrasher was admitted for fever and mental status change. This afternoon after lunch he vomited. He had a fever prior to vomiting. Around 4PM he became very confused and febrile. Temp was greater than 104. He had clonus throughout. Exam Tachycardic. Hypertensive - 193/90 Lungs clear Abd soft. Clonus throughout and some spasticity I/P 1. Presumptive serotonin syndrome N/G placed. 12mg Periactin given 2mg IV ativan given Pt on 100% NRB. He had slight improvement in symptoms but then they returned. Transferred to ICU. Dr. Overton here. LP to be done. Keppra given. Labs reviewed ABGs - hypoxic but not acidotic. CPK normal Family reiterated he did not want intubated Fluids ordered. Supportive care for now. Family informed of critical status and prognosis. CCM 52min.
[2016-10-15] MEDS: *HR* Heparin 5,000 UNIT/ML VIAL SQ SCH (19:33)
[2016-10-15 19:55] LABS: Red Blood Cell,CSF < 0.002 M/mcL
[2016-10-15 20:16] LABS: Appearance,CSF Clear (Clear)
[2016-10-15 20:27] LABS: Glucose,CSF 117 mg/dL (40-70); Total Protein,CSF 55 mg/dL (15-45)
[2016-10-15] MEDS ORDERED: Insulin LISPRO 300 UNITS/3 ML VIAL SQ SCH ×2 (21:00)
[2016-10-15] MEDS: Piperacillin/Tazobactam 3.375 GM in D5% in Water (Mini-Bag+) 100 ML IVPB SCH (23:52)
[2016-10-16 01:27] LABS: ABG Base Excess 4.1 mEq/L (-2.0 to 3.0); ABG HCO3 30.1 mEQ/L (21-27); ABG Oxygen Saturation 97 % (95-98); ABG PCO2 52 mmHg (35-45); ABG PH 7.37 pH Units (7.32-7.45); ABG PO2 90 mmHg (85-104); ABG TCO2 31.7 mEq/L (20-26)
[2016-10-16 01:28] LABS: Hematocrit 26.9 % (37.5-50.1); Mean Corpuscular HGB Conc 31.6 g/dL (31.6-35.5); Mean Corpuscular Hemoglobin 32.2 pg (28.0-33.3); Mean Corpuscular Volume 101.9 fL (83.0-100.0); Mean Platelet Volume 11.8 fL (9.4-12.4); Platelet Count 131 K/mcL (140-400); Red Blood Count 2.64 M/mcL (4.19-5.50); Red Cell Distribution Width 13.2 % (11.5-14.5)
[2016-10-16 01:28] LABS: Blood Gas FiO2 40 %
[2016-10-16 01:34] LABS: Hemoglobin 8.5 g/dL (12.9-16.9)
[2016-10-16] MEDS: 0.9 % Sodium Chloride 1,000 ML IVC SCH (01:39)
[2016-10-16 01:41] LABS: Calcium 8.6 mg/dL (8.6-10.8); Potassium 3.6 mEq/L (3.5-4.5)
[2016-10-16 01:57] LABS: Lymphocytes # 0.8 K/mcL (0.6-4.6); Monocytes # 1.3 K/mcL (0.0-1.3); Neutrophils # 4.9 K/mcL (1.6-8.9)
[2016-10-16 01:58] LABS: Large Platelets Present (Not Present); Platelet Estimate Slight Decrease (Normal)
[2016-10-16] MEDS ORDERED: Norepinephrine 4 MG in D5% in Water 250 ML IVC SCH (03:15)
--- NOTE | 2016-10-16 03:23 | Event Note ---
Date of Encounter: 10/16/16 Time of Encounter: 03:20 I was called by the nurse due to concern for hypotension as well as decreased mentation. Per the nurse the patient was altered when she assumes care but at that time he was still alert and following commands. At the time of my exam the patient would make unintelligible noises but would not respond to verbal or painful stimuli and would not follow commands. Patient was also noted to have significant hypotension with mean arterial pressures consistently in the 50s. Patient did respond initially to fluids however given his underlying heart failure were hesitant to give more fluids and therefore vasopressors were indicated. Labs revealed worsening renal function with a lactic acidosis of 3.5. Given the patient's presentation and concern for aspiration his constellation of symptoms likely represent septic shock. After discussion with the and the daughter at bedside regarding goals of care they wish to continue with aggressive treatment including central line placement and vasopressor support. A right internal jugular central line was placed (please see procedure note for details). Vasopressors have been ordered. We will repeat lactate in 6 hours.
--- NOTE | 2016-10-16 03:30 | Procedure Note ---
Date of procedure: 10/16/16 Pre-op diagnosis: Hypotension Post-op diagnosis: same Procedure: Risks and benefits of the procedure were explained at length with the and daughter. Written consent was obtained from the . The right internal jugular vein was surveyed using ultrasound and deemed to be a suitable target. Patient was cleaned and draped in the usual sterile fashion. The skin and soft tissues were anesthetized using 1% lidocaine. Under ultrasound guidance the introducer needle was passed into the right internal jugular vein. Dark red blood was returned. A guidewire was then passed his syringe/needle apparatus and into the vein without resistance. The needle was then removed. The guidewire was visualized within the right internal jugular vein using ultrasound. A júnior in the skin was made and the dilator was passed over the guidewire and the skin and soft tissues were dilated. A 20 cm triple lumen catheter was then passed over the guidewire and advanced into the right internal jugular vein. The guidewire was removed intact. All 3 ports were tested and shown to draw blood and flush easily. The catheter was sutured in place at 4 points. Biopatch and sterile dressing were applied. Chest x-rays to confirm placement is pending. The patient tolerated the procedure well, there are no immediate complications. The attending physician, Dr. Weinberg, was present and supervised the entire procedure. Surgeon: Rajinder Ross Estimated blood loss (cc): 5 IV fluids (cc): 20 Pathology: none sent Condition: critical Disposition: ICU
--- NOTE | 2016-10-16 03:32 | Procedure Note ---
Date of procedure: 10/16/16
[2016-10-16 03:36] LABS: Hematocrit 25.9 % (37.5-50.1); Hemoglobin 8.4 g/dL (12.9-16.9); Mean Corpuscular HGB Conc 32.4 g/dL (31.6-35.5); Mean Corpuscular Hemoglobin 32.8 pg (28.0-33.3); Mean Corpuscular Volume 101.2 fL (83.0-100.0); Platelet Count 120 K/mcL (140-400); Red Blood Count 2.56 M/mcL (4.19-5.50); Red Cell Distribution Width 13.1 % (11.5-14.5)
[2016-10-16] MEDS ORDERED: Furosemide 20 MG/2 ML VIAL IVP ONE ×2 (03:40→22:00)
[2016-10-16 03:50] LABS: Albumin/Globulin Ratio 0.6 (1.1-2.2); Bilirubin,Total 1.2 mg/dL (0.2-1.2); Calcium 8.5 mg/dL (8.6-10.8); Globulin 3.7 g/dL (2.4-3.5); Magnesium 1.2 mg/dL (1.6-2.6); Potassium 3.6 mEq/L (3.5-4.5)
[2016-10-16 03:55] LABS: Albumin 2.3 g/dL (3.5-5.0)
[2016-10-16 04:35] LABS: Large Platelets Present (Not Present); Lymphocytes # 0.8 K/mcL (0.6-4.6); Monocytes # 0.9 K/mcL (0.0-1.3); Neutrophils # 5.5 K/mcL (1.6-8.9); Platelet Estimate Slight Decrease (Normal)
[2016-10-16] MEDS: *HR* Heparin 5,000 UNIT/ML VIAL SQ SCH ×2 (06:03→17:00)
[2016-10-16] MEDS: hydrALAZINE 25 MG TABLET PO SCH (06:03)
[2016-10-16] MEDS ORDERED: Magnesium Sulfate 2 GM in D5% in Water 100 ML IVPB ONE (06:54)
--- NOTE | 2016-10-16 07:04 | Pulmonology Consult Note ---
Date of Encounter: 10/16/16 Time of Encounter: 08:00 Assessment and Plan (1) Septic shock Current Visit: Yes Status: Acute Patient was brought to ICU yesterday for septic shock. He had persisten HTN with MAP in 50s, pulse above 90, temp of 104, resp above 20. source of infection likely secondary to aspiration pneumonia. CXR showed bilateral infiltrates with worsening airspace disease, likely a combination of pulmonary edema and pneumonia, and new small pleural effusions. lactic acid 3.5, 2 trending down. CSF culture showed no growth. CSF fluid show increased Plan: trend lactate Q6H hold vancomycin due to high trough levels. will do MRSA nasal swab, if negative, will d/c vanc. patient was on levophed, which will wean off today. continue zosyn (day 3) for a total of 7 days of antibiotics. start tube feeds today. continue IV lasix 40mg BID (2) Aspiration pneumonia Current Visit: Yes Status: Acute likey a contributing factor to AMS. plan as above. Qualifiers: Aspiration pneumonia type: due to regurgitated food Laterality: bilateral Lung location: upper lobe of lung Qualified Code(s): J69.0 - Pneumonitis due to inhalation of food and vomit (3) Encephalopathy acute Current Visit: Yes Status: Acute patient has baseline dementia. At baseline, he is awake, alert, and interactive. He does not always answer questions appropriately, but is interactive. initial CT head showed no acute process. repeat head CT showed stable global atrophy and chronic small vessel ischemic disease. no acute intracranial hemorrhage, hydrocephalus, or evidence of infarct. LP negative for [employer] infection/inflammation. no noted hx of seizures. Etiology likely secondary to seratonin syndrome. PLan: appreciate neurology recommendations. will get EEG today (4) Serotonin syndrome Current Visit: Yes Status: Suspected patient takes zoloft, valproic acid, buspar as home meds. Earlier in his hospital stay, he had fever, myoclonus, was unarousable, and was hypertensive. He received cyproheptadine earlier in his hospital stay, and 500mg keppra for symptom control Plan: appreciate neurology recommendations. d/c PRN cyproheptadine. continue with supportive care. will obtain EEG today. (5) Acute respiratory failure Current Visit: Yes Status: Acute Qualifiers: Respiratory failure complication: hypoxia Qualified Code(s): J96.01 - Acute respiratory failure with hypoxia (6) Diastolic heart failure Current Visit: Yes Status: Acute echo from today showed LVEF 60%, normal LV size and systolic function, evidence of moderate diastolic dysfunction off LV, normal RV size and function. no significant valvular dysfunction. borderline pulmonary HTN, RVSP 35mmhg, small sized pericardial effusion. no evidence of tamponade. Plan: have D/C fluids will continue IV lasix 40mg BID Qualifiers: Heart failure chronicity: acute on chronic Qualified Code(s): I50.33 - Acute on chronic diastolic (congestive) heart failure (7) Atrial fibrillation Current Visit: Yes Status: Chronic Qualifiers: Atrial fibrillation type: paroxysmal Qualified Code(s): I48.0 - Paroxysmal atrial fibrillation (8) Dementia Current Visit: Yes Status: Chronic Qualifiers: Dementia type: unspecified type Dementia behavioral disturbance: without behavioral disturbance Qualified Code(s): F03.90 - Unspecified dementia without behavioral disturbance (9) Diabetes mellitus Current Visit: Yes Status: Chronic changed from low to medium dose SSI today. Qualifiers: Diabetes mellitus type: type 2 Diabetes mellitus complication status: without complication Diabetes mellitus emt intermediate insulin use: with emt intermediate use Qualified Code(s): E11.9 - Type 2 diabetes mellitus without complications ; Z79.4 - intermediate frame tender (current) use of insulin (10) CAD (coronary artery disease) Current Visit: Yes Status: Chronic hold atorvastatin currently due to clonus Qualifiers: Coronary Disease-Associated Artery/Lesion type: [place] artery [place] vs. transplanted heart: [place] heart Associated angina: without angina Qualified Code(s): I25.10 - Atherosclerotic heart disease of [place] coronary artery without angina pectoris (11) DVT prophylaxis Current Visit: No Status: Acute Heparin SQ BID protonix for GI prophylaxis. History of Present Illness Consult date: 10/16/16 Requesting physician: Brennan Casey Reason for consult: other (septic shock) Chief complaint: altered mental status. History of present illness: 76 year old male who is correction resident. He has PMHx of arthritis, Afib, CHF, COPD, CAD, dementia, DM, HTN, renal disease, venous stasis. Family noticed a change in patient's behavior and inability to feed himself. He had recently been nonverbal and weak. He does not follow commands and is unable to provide history. He was recently in the hospital and treated for sepsis secondary to aspiration pneumonia. Patient was originally admitted on the general floor. Yesterday, however, he became very confused a febrile with temp 104, and clonus throughout with some spasticity. Throughout the day he continued to decline. There was concern for hypotension in addition to his altered mental status. Patient would not respond to verbal or painful stimuli. He had persistent hypotension with MAP in 50s, so he was subsequently transferred to ICU for septic shock, and right IJ was placed. Past Med Surg Social Fam HX - Past Medical History Medical history: arthritis, atrial fibrillation, CHF, COPD, coronary artery disease, dementia, diabetes, hypertension, renal disease, venous stasis Psychiatric history: anxiety, depression - Past Surgical History Surgical History: no surgical history (Unable to obtain due to patient's mental status) - Social History Smoking Status: Never smoker Smokeless Tobacco Status: No Alcohol use: none Drug use: none - Family History Daughter Living Status: Still Living Hx Family Cardiac Disorders: No Hx Family Respiratory Disorders: No Hx Family Cancer: No Hx Family GI Disorders: No Hx Family Genitourinary Disorders: Yes (Chronic kidney disease) Medications and Allergies Acetaminophen [Tylenol Arthritis] 650 mg PO Q6H PRN 08/09/16 [History] Aspirin Enteric Coated [Aspirin EC] 81 mg PO DAILY 08/09/16 [History] Atorvastatin [Lipitor] 40 mg PO HS 08/09/16 [History] Divalproex (24 HR) [Depakote ER (24 HR)] 1,250 mg PO DAILY 08/09/16 [History] Donepezil HCl [Aricept] 10 mg PO DAILY 08/09/16 [History] Furosemide [Lasix] 60 mg PO DAILY 08/09/16 [History] Glucagon,Human Recombinant [Glucagon Emergency Kit] 1 mg IM Q15M PRN 08/09/16 [ History] HYDROcodone/Acet 5/325 mg [[place] 5-325 mg] 1 tab PO Q6H PRN 08/09/16 [History] Insulin ASPART [NovoLOG] 2 - 10 unit SQ ACHS 08/09/16 [History] Memantine HCl 10 mg PO BID 08/09/16 [History] Sertraline [Zoloft] 150 mg PO DAILY 08/09/16 [History] Tamsulosin [Flomax] 0.4 mg PO DAILY 08/09/16 [History] Vitamin E (Dl,Tocopheryl Acet) [Vitamin E] 400 unit PO DAILY 08/09/16 [History] Gabapentin [Neurontin] 100 mg PO DAILY #0 08/14/16 [Rx] Insulin Glargine,Hum.rec.anlog [Lantus Solostar] 20 unit SQ QAM #0 08/14/16 [Rx ] amLODIPine [Norvasc] 5 mg PO DAILY tablet 08/14/16 [Rx] hydrALAZINE [HydrALAZINE] 50 mg PO Q8HR tablet 08/14/16 [Rx] BuPROPion XL (24 HR) [Wellbutrin XL] 150 mg PO DAILY 10/15/16 [History] Buspirone HCl [Buspar] 5 mg PO TID 10/15/16 [History] Cholecalciferol (D-3) [Vitamin D] 5,000 unit PO DAILY 10/15/16 [History] Lisinopril [Zestril] 10 mg PO DAILY 10/15/16 [History] Magnesium Hydroxide [Milk of Magnesia] 2,400 mg PO DAILY PRN 10/15/16 [History] Allergies No Known Allergies Allergy (Verified 08/09/16 13:49) ROS unobtainable: due to mental status All Systems: A 10-system review of systems was performed and is negative for pertinent findings except as documented above in the HPI. Physical Examination Vital Signs: Vital Signs, Last 4 Hours Temp Pulse Resp BP Pulse Ox 10/16/16 06:00 98.0 F 63 13 106/52 97 10/16/16 05:00 98.0 F 64 12 101/46 96 10/16/16 04:15 10 114/55 96 10/16/16 04:00 99.1 F 64 10 120/62 96 General appearance: no acute distress, alert, lethargic Eyes: nonicteric ENT: oropharynx dry Neck: supple, no JVD Effort: other (on BiPAP) Inspection: normal Auscultation: bilateral: wheezes, rales Cardiovascular: regular rate and rhythm Gastrointestinal: hypoactive bowel sounds, soft, non-tender Extremities: no cyanosis, no edema (clubbing noted) unable to assess due to mental status anxious Results - Laboratory Findings CBC and BMP: 10/16/16 03:26 10/16/16 03:26 ABG ABG pH 7.37 pH Units (7.32-7.45) 10/16/16 01:12 ABG pCO2 52 mmHg (35-45) H 10/16/16 01:12 ABG pO2 90 mmHg (85-104) 10/16/16 01:12 ABG O2 Saturation 97 % (95-98) 10/16/16 01:12 Abnormal lab findings: Abnormal lab results RBC 2.56 M/mcL (4.19-5.50) L 10/16/16 03:26 Hgb 8.4 g/dL (12.9-16.9) L 10/16/16 03:26 Hct 25.9 % (37.5-50.1) L 10/16/16 03:26 MCV 101.2 fL (83.0-100.0) H 10/16/16 03:26 Plt Count 120 K/mcL (140-400) L 10/16/16 03:26 Band Neutrophils % 16.0 % (0-4) H 10/16/16 03:26 Nucleated RBCs/100 WBC 0.5 /100 WBC (0) H 10/15/16 05:30 Platelet Estimate Slight Decrease (Normal) L 10/16/16 03:26 Large Platelets Present (Not Present) A 10/16/16 03:26 ABG pCO2 52 mmHg (35-45) H 10/16/16 01:12 ABG HCO3 30.1 mEQ/L (21-27) H 10/16/16 01:12 ABG Total CO2 31.7 mEq/L (20-26) H 10/16/16 01:12 ABG Base Excess 4.1 mEq/L (-2.0 to 3.0) H 10/16/16 01:12 BUN 28 mg/dL (8-26) H 10/16/16 03:26 Creatinine 2.02 mg/dL (0.72-1.25) H 10/16/16 03:26 Est GFR ( Amer) 39 (> 60) L 10/16/16 03:26 Est GFR (Non-Af Amer) 32 (> 60) L 10/16/16 03:26 Glucose 236 mg/dL (70-99) H 10/16/16 03:26 POC Glucose 278 (58-89) H 10/15/16 21:19 Calculated Osmolality 303 (280-300) H 10/16/16 03:26 Lactic Acid 3.5 mmol/L (0.5-2.2) H 10/16/16 01:16 Calcium 8.5 mg/dL (8.6-10.8) L 10/16/16 03:26 Magnesium 1.2 mg/dL (1.6-2.6) L 10/16/16 03:26 Iron 9 mcg/dL (65-175) L 10/16/16 03:26 % Saturation 5 % (20-55) L 10/16/16 03:26 Transferrin 136 mg/dL (174-364) L 10/16/16 03:26 Ferritin 306 ng/ml (22-275) H 10/16/16 03:26 Troponin I 0.06 ng/mL (0-0.03) H* 10/15/16 14:31 B-Natriuretic Peptide 181 pg/mL (0-100) H 10/14/16 20:57 Albumin 2.3 g/dL (3.5-5.0) L D 10/16/16 03:26 Globulin 3.7 g/dL (2.4-3.5) H 10/16/16 03:26 Albumin/Globulin Ratio 0.6 (1.1-2.2) L 10/16/16 03:26 HDL Cholesterol 32 mg/dL (40-59) L 10/15/16 05:30 Urine Protein 100 mg/dL (Neg-Trace) H 10/14/16 20:10 Urine Microscopic RBC 3-5 per hpf (0-3) H 10/14/16 20:10 Ur Squamous Epith Cells Many per lpf (None-Few) H 10/14/16 20:10 CSF Glucose 117 mg/dL (40-70) H 10/15/16 18:18 CSF Total Protein 55 mg/dL (15-45) H 10/15/16 18:18 Valproic Acid 36.24 mcg/mL (50-100) L 10/15/16 14:31 - Microbiology Findings Microbiology Findings: Microbiology, Last 48 Hours 10/15/16 05:30 Blood Culture - Preliminary Peripheral Venipuncture No growth. 10/15/16 05:28 Blood Culture - Preliminary Peripheral Venipuncture No growth. 10/15/16 18:18 CSF Culture - Preliminary Cerebral Spinal Fluid - Clinical Findings Intake & Output: Intake & Output 10/15/16 10/15/16 10/16/16 15:59 23:59 07:59 Intake Total 120 / 120 105 / 105 2144 Output Total 100 / 100 50 / 50 Balance 120 / 120 2094 Consult Discharge Plan - Plan Referrals: NO,PCP [Primary Care Provider] -
[2016-10-16] MEDS ORDERED: Insulin LISPRO 300 UNITS/3 ML VIAL SQ SCH ×2 (07:30→12:00)
--- NOTE | 2016-10-16 07:38 | Neurology Progress Note ---
Date of Encounter: 10/16/16 Time of Encounter: 07:35 Assessment and Plan (1) Altered mental status Current Visit: No Status: Resolved Qualifiers: Altered mental status type: unspecified Qualified Code(s): R41.82 - Altered mental status, unspecified (2) Encephalopathy acute Current Visit: Yes Status: Acute Unable to identify a primary neurologic etiology to explain this case. LP was negative for HOME STAGING SPECIALIST infection or inflammation. Will get an EEG today. Subjective Interval history: Chart reviewed, pt. seen. Case discussed with nursing. Pt. became hypotensive overnight. Remains unresponsive. LP was negative. Neurologic exam remains unchanged. Objective - Constitutional Vitals: Temp Pulse Resp BP Pulse Ox 98.0 F 63 13 106/52 97 10/16/16 06:00 10/16/16 06:00 10/16/16 06:00 10/16/16 06:00 10/16/16 06:00 - Neurological Exam Additional comments: Neurologic exam remains unchanged. Results - Laboratory Findings CBC and BMP: 10/16/16 03:26 10/16/16 03:26 Abnormal lab findings: Abnormal lab results RBC 2.56 M/mcL (4.19-5.50) L 10/16/16 03:26 Hgb 8.4 g/dL (12.9-16.9) L 10/16/16 03:26 Hct 25.9 % (37.5-50.1) L 10/16/16 03:26 MCV 101.2 fL (83.0-100.0) H 10/16/16 03:26 Plt Count 120 K/mcL (140-400) L 10/16/16 03:26 Band Neutrophils % 16.0 % (0-4) H 10/16/16 03:26 Nucleated RBCs/100 WBC 0.5 /100 WBC (0) H 10/15/16 05:30 Platelet Estimate Slight Decrease (Normal) L 10/16/16 03:26 Large Platelets Present (Not Present) A 10/16/16 03:26 ABG pCO2 52 mmHg (35-45) H 10/16/16 01:12 ABG HCO3 30.1 mEQ/L (21-27) H 10/16/16 01:12 ABG Total CO2 31.7 mEq/L (20-26) H 10/16/16 01:12 ABG Base Excess 4.1 mEq/L (-2.0 to 3.0) H 10/16/16 01:12 BUN 28 mg/dL (8-26) H 10/16/16 03:26 Creatinine 2.02 mg/dL (0.72-1.25) H 10/16/16 03:26 Est GFR ( Amer) 39 (> 60) L 10/16/16 03:26 Est GFR (Non-Af Amer) 32 (> 60) L 10/16/16 03:26 Glucose 236 mg/dL (70-99) H 10/16/16 03:26 POC Glucose 278 (58-89) H 10/15/16 21:19 Calculated Osmolality 303 (280-300) H 10/16/16 03:26 Lactic Acid 3.5 mmol/L (0.5-2.2) H 10/16/16 01:16 Calcium 8.5 mg/dL (8.6-10.8) L 10/16/16 03:26 Magnesium 1.2 mg/dL (1.6-2.6) L 10/16/16 03:26 Iron 9 mcg/dL (65-175) L 10/16/16 03:26 % Saturation 5 % (20-55) L 10/16/16 03:26 Transferrin 136 mg/dL (174-364) L 10/16/16 03:26 Ferritin 306 ng/ml (22-275) H 10/16/16 03:26 Troponin I 0.06 ng/mL (0-0.03) H* 10/15/16 14:31 B-Natriuretic Peptide 181 pg/mL (0-100) H 10/14/16 20:57 Albumin 2.3 g/dL (3.5-5.0) L D 10/16/16 03:26 Globulin 3.7 g/dL (2.4-3.5) H 10/16/16 03:26 Albumin/Globulin Ratio 0.6 (1.1-2.2) L 10/16/16 03:26 HDL Cholesterol 32 mg/dL (40-59) L 10/15/16 05:30 Urine Protein 100 mg/dL (Neg-Trace) H 10/14/16 20:10 Urine Microscopic RBC 3-5 per hpf (0-3) H 05/20/17 20:10 Ur Squamous Epith Cells Many per lpf (None-Few) H 10/14/16 20:10 CSF Glucose 117 mg/dL (40-70) H 10/15/16 18:18 CSF Total Protein 55 mg/dL (15-45) H 10/15/16 18:18 Valproic Acid 36.24 mcg/mL (50-100) L 10/15/16 14:31 Consult Discharge Plan - Plan Referrals: NO,PCP [Primary Care Provider] -
[2016-10-16] MEDS: Piperacillin/Tazobactam 3.375 GM in D5% in Water (Mini-Bag+) 100 ML IVPB SCH ×2 (07:47→16:55)
[2016-10-16] MEDS: Furosemide 40 MG/4 ML VIAL IVP SCH ×2 (07:47→16:55)
[2016-10-16] MEDS ORDERED: Magnesium Sulfate 2 GM in D5% in Water 100 ML IVPB PRN (08:22)
[2016-10-16] MEDS ORDERED: Potassium Phosphate 44 MEQ in 0.9 % Sodium Chloride 250 ML IVPB PRN (08:22)
[2016-10-16] MEDS ORDERED: Calcium Gluconate 1,000 MG in D5% in Water 100 ML IVPB PRN (08:22)
[2016-10-16] MEDS ORDERED: Sodium Phosphate 30 MMOL in D5% in Water 100 ML IVPB PRN (08:22)
--- NOTE | 2016-10-16 08:26 | ECHO - Doppler Report ---
Echocardiogram Name: Rhys Thrasher Date of Study: 10/16/2016 Date: 1940 Ht: 65.0 in Medical Record#: [id number] Age: 76 Wt: 196.0 lb Gender: Male BSA: 1.96 Order #: [id number] Location: [facility] Room #: ICU02 Reading Physician: Kathy Lao DO Software Engineer Mobile: Mynor Blanco RN Ordering Physician: María Weinberg MD Primary Physician: None Indications: Confusion, Weakness, Hypoxia Impressions: LVEF 60%. Normal left ventricular size and systolic function. There is evidence of moderate diastolic dysfunction of the left ventricle. Normal right ventricular size and function. No significant valvular dysfunction. Borderline pulmonary hypertension. RVSP 35 mmHg. There is a small sized pericardial effusion. There is no echocardiographic evidence of tamponade physiology. Left Ventricular Wall Motion: Rest Echo Findings The apical anterior, mid anterior and basal anterior topete were not visualized. All other wall segments showed normal motion. Findings: Study Quality * Technically adequate exam. ECG Findings * Normal sinus rhythm. Left Ventricle * LVEF 60%. * Normal LV chamber size, wall thickness and function. * Moderate left ventricular diastolic dysfunction. Aorta * Normally sized aortic root. Mitral Valve * No mitral stenosis. * Trace mitral regurgitation. * Mildly calcified mitral valve leaflets. Tricuspid Valve * Tricuspid valve not well visualized. * Trace tricuspid regurgitation. * Estimated RA pressure is 8 mmHg. * Estimated RVSP is 35 mmHg. * Borderline pulmonary hypertension. Pulmonic Valve * Pulmonic valve is not well visualized. * No pulmonic stenosis. * No pulmonic regurgitation. Pulmonary Artery * Pulmonary artery not well visualized. Aortic Valve * Trileaflet aortic valve. * Mildly calcified aortic valve leaflets. * No aortic stenosis. * No aortic regurgitation. Right Ventricle * Normal right ventricular structure and function. Right Atrium * Normal right atrial size. Left Atrium * Moderately dilated left atrium. Interatrial Septum * No evidence of PFO by color Doppler. IVC * Borderline dilated, 2.1 cm without respiratory collapse. Pericardium * There is a small pericardial effusion present. History Hypertension Diabetes History of CAD/PTCA Congestive Heart Failure Measurements: BP: 106/ 52 2D Normal Values RVIDd: 3.20 cm <2.7 cm IVSd: 1.20 cm 0.6 - 1.0 cm LVIDd: 4.30 cm 3.7 - 5.6 cm LVPWd: 1.20 cm 0.6 - 1.1 cm LVIDs: 2.90 cm 1.5 - 3.6 cm LA: 4.00 cm 2.0 - 4.0cm %FS: 32.60 cm >25 % LVOT Diam: 1.80 cm LA volume: 86 Mitral Valve Peak E:1.13 m/sec Peak A:.65 m/sec E/A Ratio:1.7 Peak E' Lat Louis:6.14 cm/s Peak E' Med Louis:5.46 cm/s E/E' Lat Ratio:18.4 E/E' Med Ratio:20.7 Tricuspid Valve TV Regurg Peak Grad: 27.00mmHg TV Regurg Peak Louis: 2.59m/sec Updated by Kathy Lao on 10/16/2016 8:21:22 AM electronically signed on 10/16/2016 8:22:21 AM with status of Final Wall Motion [place]: 1=Normal, 2=Hypokinesis, 3=Akinesis, 4=Dyskinesis, 5=Aneurysmal, 6=Hyperkinetic, X=Not Visualized (Blank)=Missing
[2016-10-16] MEDS ORDERED: amLODIPine 5 MG TABLET PO SCH ×2 (09:00)
[2016-10-16] MEDS ORDERED: Aminoglycoside Consult 1 EACH MC ONE (09:35)
[2016-10-16] MEDS: Aspirin Enteric Coated 81 MG Tablet PO SCH (09:41)
[2016-10-16] MEDS ORDERED: Dexmedetomidine HCl 400 MCG/100 ML MLS IVC ONE (13:58)
[2016-10-16] MEDS ORDERED: Dexmedetomidine HCl 400 MCG/100 ML MLS IVC SCH (14:00)
[2016-10-16] MEDS ORDERED: Vancomycin 1,250 MG in D5% in Water 250 ML IVPB SCH (15:30)
[2016-10-16] MEDS: Ferrous Sulfate Oral Soln 300 MG/5 ML UDC PO SCH (16:55)
[2016-10-16] MEDS: Insulin LISPRO 300 UNITS/3 ML VIAL SQ SCH (17:05)
--- NOTE | 2016-10-16 17:05 | Electrocardiograph Report ---
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
--- NOTE | 2016-10-16 17:32 | EEG/EMG/Oth Biometrics Report ---
EEG Procedure Report Date of procedure: 10/16/16 Procedure Note: This is a report of a 21 channel bipolar and referential montage EEG. There is no posterior dominant alpha rhythm identified during the study. The resting background rhythm consisted of mixed theta and delta frequencies. On occasion. Frequencies are identified bifrontally. There is no sleep architecture identified during the study. Photic stimulation is performed and does not produce a driving response. The EKG rhythm strip reveals normal sinus rhythm at 60 beats per minute. Impressions: This EEG recording is abnormal and is consistent with a moderate to severe generalized encephalopathy. There is no evidence of epileptiform activity identified during the study. Comment: Etiologies that may be consistent with this interpretation might include; toxic, metabolic, postictal, and degenerative. Please correlate clinically. The documentation in the history of HPI and plan were at least partially created by [employer] voice recognition technology by Dr. Overton. Errors in grammar, wording or other phrases may exist. If errors are found after the documentation signed, they will be addressed individually in the addendum section of this document when appropriate.
[2016-10-17] MEDS: Piperacillin/Tazobactam 3.375 GM in D5% in Water (Mini-Bag+) 100 ML IVPB SCH ×3 (00:08→15:28)
[2016-10-17] MEDS: Insulin LISPRO 300 UNITS/3 ML VIAL SQ SCH ×4 (00:21→17:42)
[2016-10-17 04:32] LABS: Basophils % 0.2 %; Eosinophils # 0.1 K/mcL (0.0-0.6); Eosinophils % 0.5 %; Hematocrit 23.1 % (37.5-50.1); Hemoglobin 7.5 g/dL (12.9-16.9); Immature Granulocytes % 2.7 % (0-4); Lymphocytes # 1.2 K/mcL (0.6-4.6); Lymphocytes % 10.7 %; Mean Corpuscular HGB Conc 32.5 g/dL (31.6-35.5); Mean Corpuscular Hemoglobin 32.3 pg (28.0-33.3); Mean Corpuscular Volume 99.6 fL (83.0-100.0); Mean Platelet Volume 12.2 fL (9.4-12.4); Monocytes # 1.3 K/mcL (0.0-1.3); Monocytes % 11.2 %; Neutrophils # 8.4 K/mcL (1.6-8.9); Platelet Count 126 K/mcL (140-400); Red Blood Count 2.32 M/mcL (4.19-5.50); Red Cell Distribution Width 13.3 % (11.5-14.5); Segmented Neutrophils % 74.7 %
[2016-10-17 04:38] LABS: Ionized Calcium 1.19 mmol/L (1.15-1.35)
[2016-10-17 04:47] LABS: Calcium 8.9 mg/dL (8.6-10.8); Magnesium 2.2 mg/dL (1.6-2.6); Phosphorous 3.2 mg/dL (2.3-4.7); Potassium 3.5 mEq/L (3.5-4.5)
[2016-10-17 04:51] LABS: Platelet Estimate Decreased (Normal)
[2016-10-17 04:53] LABS: Large Platelets Present (Not Present)
[2016-10-17] MEDS: *HR* Heparin 5,000 UNIT/ML VIAL SQ SCH ×2 (05:12→17:39)
[2016-10-17 05:43] LABS: Hemoglobin 7.7 g/dL (12.9-16.9)
--- NOTE | 2016-10-17 06:42 | Pulmonology Progress Note ---
Date of Encounter: 10/17/16 Time of Encounter: 08:14 Assessment and Plan (1) Septic shock Current Visit: Yes Status: Resolved Patient was brought to ICU for septic shock. He had persisten HTN with MAP in 50s, pulse above 90, temp of 104, resp above 20. source of infection likely secondary to aspiration pneumonia. CXR showed bilateral infiltrates with worsening airspace disease, likely a combination of pulmonary edema and pneumonia, and new small pleural effusions. lactic acid 3.5, 2 trending down. CSF culture showed no growth. CSF fluid show increased Plan: resolved. patient has been off levophed and blood pressures have been stable. lactic acid has normalized. MRSA swab yesterday negative, discontinued vancomycin. continue zosyn (day 4) for a total of 7 days of antibiotics. continue with tube feeds- patient had swallow eval today- recommended nectar thickened liquids and mechanically altered diet. continue IV lasix 40mg BID (2) Aspiration pneumonia Current Visit: Yes Status: Acute plan as above. Qualifiers: Aspiration pneumonia type: due to regurgitated food Laterality: bilateral Lung location: upper lobe of lung Qualified Code(s): J69.0 - Pneumonitis due to inhalation of food and vomit (3) Encephalopathy acute Current Visit: Yes Status: Resolved resolved. patient is back to his baseline mental status. today he is alert and oriented x2. etiology likely secondary to seratonin syndrome. EEG yesterday negative. (4) Serotonin syndrome Current Visit: Yes Status: Suspected patient is on buspirone, buproprion, zoloft for home meds. highly advise caution with re starting these meds upon discharge. 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 Etiology likely secondary to septic shock and hypoperfusion. will continue diuresis in setting of pulmonary edema. will continue to monitor renal function and urine output. (6) Acute respiratory failure Current Visit: Yes Status: Acute likely secondary to aspiration pneumonia patient is still requiring oxymask. wean off as tolerated. Qualifiers: Respiratory failure complication: hypoxia Qualified Code(s): J96.01 - Acute respiratory failure with hypoxia (7) Diastolic heart failure Current Visit: Yes Status: Acute echo showed LVEF 60%, normal LV size and systolic function, evidence of moderate diastolic dysfunction off LV, normal RV size and function. no significant valvular dysfunction. borderline pulmonary HTN, RVSP 35mmhg, small sized pericardial effusion. no evidence of tamponade. Plan: will continue IV lasix 40mg BID Qualifiers: Heart failure chronicity: acute on chronic Qualified Code(s): I50.33 - Acute on chronic diastolic (congestive) heart failure (8) Atrial fibrillation Current Visit: Yes Status: Chronic Qualifiers: Atrial fibrillation type: paroxysmal Qualified Code(s): I48.0 - Paroxysmal atrial fibrillation (9) Dementia Current Visit: Yes Status: Chronic Qualifiers: Dementia type: unspecified type Dementia behavioral disturbance: without behavioral disturbance Qualified Code(s): F03.90 - Unspecified dementia without behavioral disturbance (10) Diabetes mellitus Current Visit: Yes Status: Chronic continue medium dose SSI, added 10 units of basal insulin qam today. Qualifiers: Diabetes mellitus type: type 2 Diabetes mellitus complication status: without complication Diabetes mellitus prison insulin use: with prison use Qualified Code(s): E11.9 - Type 2 diabetes mellitus without complications ; Z79.4 - [facility] (current) use of insulin (11) CAD (coronary artery disease) Current Visit: Yes Status: Chronic currently hold atorvastatin due to clonus. re start once resolved. Qualifiers: Coronary Disease-Associated Artery/Lesion type: [place] artery [place] vs. transplanted heart: [place] heart Associated angina: without angina Qualified Code(s): I25.10 - Atherosclerotic heart disease of [place] coronary artery without angina pectoris (12) DVT prophylaxis Current Visit: No Status: Acute heparin SQ Subjective Principal diagnosis: encephalopathy Interval history: 76 year old male evaluated at bedside. He is more alert today, and is oriented x2. he is able to follow commands, and appears a lot more improved compared to yesterday. Patient is in no acute distress, and he does not complain of any problems today. Objective PUL Vital signs: Last Vital Signs Temp 97.9 F 10/17/16 04:46 Pulse 69 10/17/16 05:00 Resp 19 10/17/16 05:00 BP 110/47 10/17/16 05:00 Pulse Ox 95 10/17/16 05:00 General appearance: no acute distress, alert, lethargic Eyes: nonicteric, other (pupils pinpoint. ) ENT: oropharynx moist Neck: supple, no lymphadenopathy Auscultation: bilateral: rales Cardiovascular: regular rate and rhythm Gastrointestinal: normoactive bowel sounds, soft, non-tender Integumentary: normal Extremities: no cyanosis, no edema, pink and warm mood appropriate Results - Laboratory Findings CBC and BMP: 10/17/16 05:35 10/17/16 04:15 ABG ABG pH 7.37 pH Units (7.32-7.45) 10/16/16 01:12 ABG pCO2 52 mmHg (35-45) H 10/16/16 01:12 ABG pO2 90 mmHg (85-104) 10/16/16 01:12 ABG O2 Saturation 97 % (95-98) 10/16/16 01:12 Abnormal lab findings: Abnormal lab results WBC 11.2 K/mcL (4.3-11.1) H D 10/17/16 04:15 RBC 2.32 M/mcL (4.19-5.50) L 10/17/16 04:15 Hgb 7.7 g/dL (12.9-16.9) L 10/17/16 05:35 Hct 24.0 % (37.5-50.1) L 10/17/16 05:35 Plt Count 126 K/mcL (140-400) L 10/17/16 04:15 Band Neutrophils % 16.0 % (0-4) H 10/16/16 03:26 Nucleated RBCs/100 WBC 0.5 /100 WBC (0) H 10/15/16 05:30 Platelet Estimate Decreased (Normal) L 10/17/16 04:15 Large Platelets Present (Not Present) A 10/17/16 04:15 ABG pCO2 52 mmHg (35-45) H 10/16/16 01:12 ABG HCO3 30.1 mEQ/L (21-27) H 10/16/16 01:12 ABG Total CO2 31.7 mEq/L (20-26) H 10/16/16 01:12 ABG Base Excess 4.1 mEq/L (-2.0 to 3.0) H 10/16/16 01:12 BUN 44 mg/dL (8-26) H D 10/17/16 04:15 Creatinine 2.39 mg/dL (0.72-1.25) H 10/17/16 04:15 Est GFR ( Amer) 32 (> 60) L 10/17/16 04:15 Est GFR (Non-Af Amer) 27 (> 60) L 10/17/16 04:15 Glucose 185 mg/dL (70-99) H 10/17/16 04:15 POC Glucose 199 (58-89) H 10/17/16 00:19 Calculated Osmolality 308 (280-300) H 10/17/16 04:15 Iron 9 mcg/dL (65-175) L 10/16/16 03:26 % Saturation 5 % (20-55) L 10/16/16 03:26 Transferrin 136 mg/dL (174-364) L 10/16/16 03:26 Ferritin 306 ng/ml (22-275) H 10/16/16 03:26 Creatine Kinase 207 Units/L (30-200) H D 10/16/16 07:51 Troponin I 0.06 ng/mL (0-0.03) H* 10/15/16 14:31 B-Natriuretic Peptide 181 pg/mL (0-100) H 10/14/16 20:57 Albumin 2.3 g/dL (3.5-5.0) L D 10/16/16 03:26 Globulin 3.7 g/dL (2.4-3.5) H 10/16/16 03:26 Albumin/Globulin Ratio 0.6 (1.1-2.2) L 10/16/16 03:26 Prealbumin 9.0 mg/dL (18.0-45.0) L 10/16/16 12:20 HDL Cholesterol 32 mg/dL (40-59) L 10/15/16 05:30 Urine Protein 100 mg/dL (Neg-Trace) H 10/14/16 20:10 Urine Microscopic RBC 3-5 per hpf (0-3) H 10/14/16 20:10 Ur Squamous Epith Cells Many per lpf (None-Few) H 10/14/16 20:10 CSF Glucose 117 mg/dL (40-70) H 10/15/16 18:18 CSF Total Protein 55 mg/dL (15-45) H 10/15/16 18:18 Valproic Acid 36.24 mcg/mL (50-100) L 10/15/16 14:31 - Microbiology Findings Microbiology Findings: Microbiology, Last 48 Hours 10/15/16 05:30 Blood Culture - Preliminary Peripheral Venipuncture No growth. 10/15/16 05:28 Blood Culture - Preliminary Peripheral Venipuncture No growth. 10/15/16 18:18 CSF Culture - Preliminary Cerebral Spinal Fluid - Clinical Findings Intake & Output: Intake & Output 10/16/16 10/16/16 10/17/16 15:59 23:59 07:59 Intake Total 214 / 214 153 / 153 100 / 100 Output Total 475 / 475 200 / 200 Balance -261 / -261 153 / 153 -100 / -100 Consult Discharge Plan - Plan Referrals: NO,PCP [Primary Care Provider] -
[2016-10-17] MEDS ORDERED: 0.9 % Sodium Chloride 250 ML ONE (08:30)
[2016-10-17] MEDS: Furosemide 40 MG/4 ML VIAL IVP SCH ×2 (08:38→17:38)
[2016-10-17] MEDS: Ferrous Sulfate Oral Soln 300 MG/5 ML UDC PO SCH ×2 (08:38→17:37)
[2016-10-17] MEDS: Aspirin Enteric Coated 81 MG Tablet PO SCH (08:39)
[2016-10-17] MEDS ORDERED: Potassium Chloride Elixir 20 MEQ/15 ML UDC GTUBE PRN (08:47)
[2016-10-17] MEDS ORDERED: Pantoprazole 40 MG VIAL IVP SCH (09:00)
[2016-10-17] MEDS ORDERED: Insulin DETEMIR 100 UNIT/ML X5UNITS SQ SCH (11:15)
[2016-10-17] MEDS ORDERED: Dextrose Gel 15 GM PO PRN ×2 (13:04)
[2016-10-17] MEDS ORDERED: D5% in Water 1,000 ML IVC PRN (13:04)
[2016-10-17] MEDS ORDERED: Naloxone 0.4 MG/ML INJ IVP PRN (13:04)
[2016-10-17] MEDS ORDERED: Acetaminophen 650 MG RECTAL SUPP RC PRN (13:04)
[2016-10-17] MEDS ORDERED: *HR* Dextrose 50 % in Water (Syg) 50 ML SYRINGE IVP PRN (13:04)
--- NOTE | 2016-10-17 15:14 | Neurology Progress Note ---
Date of Encounter: 10/17/16 Time of Encounter: 09:30 Assessment and Plan (1) Encephalopathy acute Current Visit: Yes Status: Resolved Overall patient is improved. Although he remains somnolent. He is as attempting to talk, he does make eye contact, follows simple commands. At this juncture I am doubtful of a primary neurologic etiology to explain his sudden mental status change. I suspect cardiac, pulmonary, or metabolic etiologies. I will reevaluate him at your request. Subjective Principal diagnosis: encephalopathy Interval history: Chart was reviewed patient was seen and examined. Patient is a somewhat more responsive today. He does open his eyes spontaneously and makes eye contact. He is attempting to talk. He follows simple commands such as squeezing one's hand and wiggling the toes on both feet. However he remains somnolent. His EEG was abnormal and revealed her to severe generalized encephalopathy. Objective - Constitutional Vitals: Temp Pulse Resp BP Pulse Ox 98.6 F 80 16 109/68 99 10/17/16 12:57 10/17/16 12:57 10/17/16 12:57 10/17/16 12:57 10/17/16 12:57 - Neurological Exam Additional comments: Mental status again finds that he is somnolent but arousable, he makes eye contact, he follows simple commands, he attempts to talk. Pupils are equal and reactive to light. Extraocular motility is intact. There is no facial asymmetry identified. Motor exam finds no focal or lateralized deficits on examination. No long track signs are seen. Results - Laboratory Findings CBC and BMP: 10/17/16 05:35 10/17/16 04:15 Abnormal lab findings: Abnormal lab results WBC 11.2 K/mcL (4.3-11.1) H D 10/17/16 04:15 RBC 2.32 M/mcL (4.19-5.50) L 10/17/16 04:15 Hgb 7.7 g/dL (12.9-16.9) L 10/17/16 05:35 Hct 24.0 % (37.5-50.1) L 10/17/16 05:35 Plt Count 126 K/mcL (140-400) L 10/17/16 04:15 Band Neutrophils % 16.0 % (0-4) H 10/16/16 03:26 Nucleated RBCs/100 WBC 0.5 /100 WBC (0) H 10/15/16 05:30 Platelet Estimate Decreased (Normal) L 10/17/16 04:15 Large Platelets Present (Not Present) A 10/17/16 04:15 ABG pCO2 52 mmHg (35-45) H 10/16/16 01:12 ABG HCO3 30.1 mEQ/L (21-27) H 10/16/16 01:12 ABG Total CO2 31.7 mEq/L (20-26) H 10/16/16 01:12 ABG Base Excess 4.1 mEq/L (-2.0 to 3.0) H 10/16/16 01:12 BUN 44 mg/dL (8-26) H D 10/17/16 04:15 Creatinine 2.39 mg/dL (0.72-1.25) H 10/17/16 04:15 Est GFR ( Amer) 32 (> 60) L 10/17/16 04:15 Est GFR (Non-Af Amer) 27 (> 60) L 10/17/16 04:15 Glucose 185 mg/dL (70-99) H 10/17/16 04:15 POC Glucose 271 (58-89) H 10/17/16 11:49 Calculated Osmolality 308 (280-300) H 10/17/16 04:15 Iron 9 mcg/dL (65-175) L 10/16/16 03:26 % Saturation 5 % (20-55) L 10/16/16 03:26 Transferrin 136 mg/dL (174-364) L 10/16/16 03:26 Ferritin 306 ng/ml (22-275) H 10/16/16 03:26 Creatine Kinase 207 Units/L (30-200) H D 10/16/16 07:51 Troponin I 0.06 ng/mL (0-0.03) H* 10/15/16 14:31 B-Natriuretic Peptide 181 pg/mL (0-100) H 10/14/16 20:57 Albumin 2.3 g/dL (3.5-5.0) L D 10/16/16 03:26 Globulin 3.7 g/dL (2.4-3.5) H 10/16/16 03:26 Albumin/Globulin Ratio 0.6 (1.1-2.2) L 10/16/16 03:26 Prealbumin 9.0 mg/dL (18.0-45.0) L 10/16/16 12:20 HDL Cholesterol 32 mg/dL (40-59) L 10/15/16 05:30 Urine Protein 100 mg/dL (Neg-Trace) H 10/14/16 20:10 Urine Microscopic RBC 3-5 per hpf (0-3) H 10/14/16 20:10 Ur Squamous Epith Cells Many per lpf (None-Few) H 10/14/16 20:10 CSF Glucose 117 mg/dL (40-70) H 10/15/16 18:18 CSF Total Protein 55 mg/dL (15-45) H 10/15/16 18:18 Valproic Acid 36.24 mcg/mL (50-100) L 10/15/16 14:31 Consult Discharge Plan - Plan Referrals: NO,PCP [Primary Care Provider] -
[2016-10-17] MEDS: hydrALAZINE 25 MG TABLET PO SCH ×2 (15:29→22:13)
[2016-10-17] MEDS ORDERED: *HR* Heparin 5,000 UNIT/ML VIAL SQ SCH (18:00)
[2016-10-17] MEDS: *HR* LORazepam 2 MG/ML VIAL IVP PRN (22:34)
[2016-10-18] MEDS: Insulin LISPRO 300 UNITS/3 ML VIAL SQ SCH ×5 (00:18→23:23)
[2016-10-18] MEDS: Piperacillin/Tazobactam 3.375 GM in D5% in Water (Mini-Bag+) 100 ML IVPB SCH ×2 (02:40→14:38)
[2016-10-18 05:24] LABS: Ionized Calcium 1.21 mmol/L (1.15-1.35)
[2016-10-18 05:25] LABS: Basophils % 0.4 %; Eosinophils # 0.1 K/mcL (0.0-0.6); Eosinophils % 0.9 %; Immature Granulocytes % 7.6 % (0-4); Lymphocytes # 0.9 K/mcL (0.6-4.6); Lymphocytes % 8.8 %; Mean Corpuscular HGB Conc 32.1 g/dL (31.6-35.5); Mean Corpuscular Hemoglobin 30.7 pg (28.0-33.3); Mean Corpuscular Volume 95.7 fL (83.0-100.0); Mean Platelet Volume 12.5 fL (9.4-12.4); Monocytes % 9.5 %; Neutrophils # 7.7 K/mcL (1.6-8.9); Platelet Count 142 K/mcL (140-400); Red Blood Count 3.03 M/mcL (4.19-5.50); Red Cell Distribution Width 16.1 % (11.5-14.5); Segmented Neutrophils % 72.8 %
[2016-10-18 05:38] LABS: Hemoglobin 9.3 g/dL (12.9-16.9)
[2016-10-18 05:40] LABS: Magnesium 2.1 mg/dL (1.6-2.6); Phosphorous 3.1 mg/dL (2.3-4.7)
[2016-10-18 05:44] LABS: Calcium 9.5 mg/dL (8.6-10.8); Potassium 3.9 mEq/L (3.5-4.5)
[2016-10-18] MEDS: *HR* Heparin 5,000 UNIT/ML VIAL SQ SCH ×2 (06:00→20:04)
[2016-10-18] MEDS: hydrALAZINE 25 MG TABLET PO SCH ×3 (06:01→23:09)
[2016-10-18 06:14] LABS: Large Platelets Present (Not Present); Platelet Estimate Slight Decrease (Normal)
[2016-10-18] MEDS: Furosemide 40 MG/4 ML VIAL IVP SCH ×2 (08:29→20:05)
[2016-10-18] MEDS: Aspirin Enteric Coated 81 MG Tablet PO SCH (08:29)
[2016-10-18] MEDS: Ferrous Sulfate Oral Soln 300 MG/5 ML UDC PO SCH ×2 (08:29→20:05)
[2016-10-18] MEDS: Insulin DETEMIR 100 UNIT/ML X5UNITS SQ SCH (08:30)
[2016-10-18] MEDS ORDERED: Pantoprazole 40 MG VIAL IVP SCH (09:00)
--- NOTE | 2016-10-18 11:42 | Internal Med Progress Note ---
<Antwan Galvez - Last Filed: 10/18/16 16:36> Date of Encounter: 10/18/16 - Constitutional Vitals: Temp Pulse Resp BP Pulse Ox 99.6 F 78 18 144/56 94 10/18/16 15:27 10/18/16 15:27 10/18/16 15:27 10/18/16 15:27 10/18/16 15:27 Internal Medicine: Result - Labs CBC & Chem 7: 10/18/16 04:34 10/18/16 04:34 Labs: Short CBC 10/18/16 Range/Units 04:34 WBC 10.6 (4.3-11.1) K/mcL Hgb 9.3 L D (12.9-16.9) g/dL Hct 29.0 L (37.5-50.1) % Plt Count 142 (140-400) K/mcL Neutrophils # 7.7 (1.6-8.9) K/mcL BMP 10/18/16 04:34 Sodium 144 Potassium 3.9 Chloride 105 Carbon Dioxide 28 BUN 49 H Creatinine 1.93 H Glucose 247 H Calcium 9.5 - ABG Interpretation ABG results: ABG ABG pH 7.37 pH Units (7.32-7.45) 10/16/16 01:12 ABG pCO2 52 mmHg (35-45) H 10/16/16 01:12 ABG pO2 90 mmHg (85-104) 10/16/16 01:12 ABG O2 Saturation 97 % (95-98) 10/16/16 01:12 Consult Discharge Plan - Plan Referrals: NO,PCP [Primary Care Provider] - - Attending Attestation I examined this patient and my medical decision-making was reviewed with the INTERNATIONAL BANK MANAGER/PA/Advanced Practice Nurse/Resident Physician. I agree with the documented findings, disposition and treatment plan as described except to the extent set forth below. <Tor Aceveod - Last Filed: 10/18/16 20:08> Date of Encounter: 10/18/16 Time of Encounter: 09:15 - Assessment and plan (1) Acute respiratory failure Current Visit: Yes Status: Acute Assessment and plan: - With increased need of oxygen on admission. - Likely secondary to aspiration pneumonia and diastolic CHF exacerbation in the setting of anemia. - Continue IV Zosyn for aspiration pneumonia. - Continue diuresis with Lasix for CHF. - Continue supplemental oxygen and as needed intermittent BiPAP. - Continue to monitor. Qualifiers: Respiratory failure complication: hypoxia Qualified Code(s): J96.01 - Acute respiratory failure with hypoxia (2) GI bleed Current Visit: Yes Status: Acute Assessment and plan: - Hgb dropped to as low as 7.5 on 10/17/16. - Status post 1 unit of pRBC and Hgb 9.3 today. - Stool occult test positive. - Start Protonix IV BID. - GI consulted and appreciate further work-up and recommendations. Qualifiers: GI bleed type/associated pathology: unspecified gastrointestinal hemorrhage type Qualified Code(s): K92.2 - Gastrointestinal hemorrhage, unspecified (3) Encephalopathy acute Current Visit: Yes Status: Resolved Assessment and plan: - Unknown etiology. Differentials include serotonin syndrome, metabolic encephalopathy, delirium, progression of dementia. - CT head found no acute intracranial abnormality. - CSF gram stain and culture don't indicate infection. - Neurology on board and doubted this is a primary neurologic etiology - Improves as patient is still somnolent but arousable. - Continue to monitor. (4) Aspiration pneumonia Current Visit: Yes Status: Acute Assessment and plan: - CXR suggests of possible pneumonia and pulmonary edema. - Continue IV Zosyn. - Speech therapy and helicopter repairer on board. - Currently on honey thickened liquid diet and tube feeding. May advance diet if tolerated. Qualifiers: Aspiration pneumonia type: due to regurgitated food Laterality: bilateral Lung location: upper lobe of lung Qualified Code(s): J69.0 - Pneumonitis due to inhalation of food and vomit (5) Serotonin syndrome Current Visit: Yes Status: Suspected Assessment and plan: - Concern of serotonin syndrome given high fever, rigidity and ocular clonus and patient was on Zoloft, valproic acid, buspar at residential. - Cautious to resume those medications upon discharge. (6) Acute renal failure superimposed on chronic kidney disease Current Visit: No Status: Acute Assessment and plan: - SCr as high as 2.39 on 10/17/16 compared to his baseline ~ 1.7. - Likely secondary hypoperfusion related to septic shock and anemia.. - Improved as SCr 1.93 today. - Avoid nephrotoxin. - Continue to monitor renal function and electrolytes. (7) Dementia Current Visit: Yes Status: Chronic Assessment and plan: - History of dementia. - Current mental status can be part of dementia progression. - Continue memantine and donepezil. Qualifiers: Dementia type: unspecified type Dementia behavioral disturbance: without behavioral disturbance Qualified Code(s): F03.90 - Unspecified dementia without behavioral disturbance (8) Septic shock Current Visit: Yes Status: Resolved Assessment and plan: - BP as low as 84/45 on 10/16/16. - Likely secondary to aspiration pneumonia. - Resolved as BP improves and no need of vasopressor. (9) Diabetes mellitus Current Visit: Yes Status: Chronic Assessment and plan: - Continue basal and sliding scale insulin with routine glucose monitoring. Qualifiers: Diabetes mellitus type: type 2 Diabetes mellitus complication status: without complication Diabetes mellitus intermediate designer insulin use: with intermediate designer use Qualified Code(s): E11.9 - Type 2 diabetes mellitus without complications ; Z79.4 - terminal supervisor (current) use of insulin (10) Diastolic heart failure Current Visit: Yes Status: Acute Assessment and plan: - Echo on 10/16/16 showed LVEF 60% with moderate diastolic LV dysfunction. No significant valvular abnormality. - Continue diuresis with Lasix Qualifiers: Heart failure chronicity: acute on chronic Qualified Code(s): I50.33 - Acute on chronic diastolic (congestive) heart failure (11) Atrial fibrillation Current Visit: Yes Status: Chronic Assessment and plan: - Currently rate controlled.not on bblocker or anticoagulation. hx of 2nd degree av block: will hold metoprolol for now. hx of colon mass and GI bleed hgb decreased from previous admission: will no start anticoauglation. Qualifiers: Atrial fibrillation type: paroxysmal Qualified Code(s): I48.0 - Paroxysmal atrial fibrillation - Subjective Interval history: Per nurse, patient had a blood clot in felix but it's been flowing after flushing. Patient was seen and examined this morning. Patient is somnolent but arousable to verbal and pain stimuli. Per family at bedside, patient didn't sleep well last night. Patient said no while asking if he has any pain. Patient is able to follow some simple commands like squeezing my hands and open his eyes but fell back to sleep quickly. - Constitutional Vitals: Temp Pulse Resp BP Pulse Ox 98.5 F 88 22 167/69 98 10/18/16 07:25 10/18/16 07:25 10/18/16 07:25 10/18/16 07:25 10/18/16 07:25 General appearance: Present: A&O X 0 Exam: Somnolent but arousable to verbal and pain stimuli. Patient is able to follow some simple commands like squeezing my hands and open his eyes but fell back to sleep quickly. - Head Head exam: Present: atraumatic, normocephalic - Eye Additional comments: Unable to fully evaluate given patient closes his eyes most of time. - Neck Neck exam general surgery: Present: supple, trachea midline. Absent: lymphadenopathy - Respiratory Respiratory exam: Present: decreased breath sounds, rales (bibasilar). Absent: accessory muscle use, rhonchi, wheezes - Cardiovascular Cardiovascular exam: Present: irregular rhythm, +S1, +S2. Absent: diastolic murmur, gallop, rubs, systolic murmur - GI/Abdominal GI/Abdominal exam: Present: normal bowel sounds, soft, no peritoneal signs. Absent: distended, tenderness - Extremities Exam Extremities exam: Present: warm, radial pulses palpable and symetrical. Absent : calf tenderness, cyanotic, pedal edema - Neurological Exam Neurological exam: Absent: pronater drift, facial droop Additional comments: Unable to fully assess given patient's current mental status. - Skin Skin exam: Present: dry, intact, warm Internal Medicine: Result - Labs CBC & Chem 7: 10/18/16 04:34 10/18/16 04:34 Labs: Short CBC 10/18/16 Range/Units 04:34 WBC 10.6 (4.3-11.1) K/mcL Hgb 9.3 L D (12.9-16.9) g/dL Hct 29.0 L (37.5-50.1) % Plt Count 142 (140-400) K/mcL Neutrophils # 7.7 (1.6-8.9) K/mcL BMP 10/18/16 04:34 Sodium 144 Potassium 3.9 Chloride 105 Carbon Dioxide 28 BUN 49 H Creatinine 1.93 H Glucose 247 H Calcium 9.5 - ABG Interpretation ABG results: ABG ABG pH 7.37 pH Units (7.32-7.45) 10/16/16 01:12 ABG pCO2 52 mmHg (35-45) H 10/16/16 01:12 ABG pO2 90 mmHg (85-104) 10/16/16 01:12 ABG O2 Saturation 97 % (95-98) 10/16/16 01:12
[2016-10-18] MEDS: Pantoprazole 40 MG VIAL IVP SCH (20:04)
[2016-10-19] MEDS: Piperacillin/Tazobactam 3.375 GM in D5% in Water (Mini-Bag+) 100 ML IVPB SCH ×3 (02:04→20:24)
--- NOTE | 2016-10-19 03:26 | Event Note ---
Date of Encounter: 10/19/16 Time of Encounter: 03:21 I was paged by the nurse due to concerns that the patient had pulled out his NG tube partially while tube feeds were running. I ordered a stat CXR and evaluated the patient. Upon evaluation the patient was sleeping in bed, he did not appear to be in any acute distress. His lung sounds were diminished bilaterally. His oxygen saturation was 94% on 5L however the nasal cannula was not in his nose when I entered the room. Patient was not coughing when I examined him. CXR showed worsening pulmonary edema and bilateral effusions. This could be operations representative of true pulmonary edema or aspiration of tube feeds. Patient is clinically stable at this time, will continue to monitor respiratory status. Chest physiotherapy has been ordered to facilitate clearance of any endobronchial contents.
[2016-10-19 04:47] LABS: Basophils # 0.1 K/mcL (0.0-0.2); Basophils % 0.7 %; Eosinophils # 0.1 K/mcL (0.0-0.6); Eosinophils % 0.9 %; Hematocrit 28.7 % (37.5-50.1); Hemoglobin 9.6 g/dL (12.9-16.9); Immature Granulocytes % 4.8 % (0-4); Lymphocytes # 0.9 K/mcL (0.6-4.6); Lymphocytes % 10.1 %; Mean Corpuscular HGB Conc 33.4 g/dL (31.6-35.5); Mean Corpuscular Hemoglobin 32.2 pg (28.0-33.3); Mean Corpuscular Volume 96.3 fL (83.0-100.0); Mean Platelet Volume 12.6 fL (9.4-12.4); Monocytes # 1.3 K/mcL (0.0-1.3); Monocytes % 15.1 %; Neutrophils # 5.9 K/mcL (1.6-8.9); Platelet Count 133 K/mcL (140-400); Red Blood Count 2.98 M/mcL (4.19-5.50); Red Cell Distribution Width 15.8 % (11.5-14.5); Segmented Neutrophils % 68.4 %
[2016-10-19 05:12] LABS: Calcium 9.6 mg/dL (8.6-10.8)
[2016-10-19 05:20] LABS: Platelet Estimate Normal (Normal)
[2016-10-19] MEDS: hydrALAZINE 25 MG TABLET PO SCH ×3 (06:44→20:23)
[2016-10-19] MEDS: Pantoprazole 40 MG VIAL IVP SCH ×2 (06:44→17:13)
[2016-10-19] MEDS: Acetaminophen 325 MG TABLET PO PRN ×2 (06:44→15:08)
[2016-10-19] MEDS: *HR* Heparin 5,000 UNIT/ML VIAL SQ SCH ×2 (06:44→17:27)
[2016-10-19] MEDS: Insulin LISPRO 300 UNITS/3 ML VIAL SQ SCH ×3 (06:45→17:27)
[2016-10-19] MEDS: Aspirin Enteric Coated 81 MG Tablet PO SCH (08:37)
[2016-10-19] MEDS: Furosemide 40 MG/4 ML VIAL IVP SCH ×2 (08:38→17:13)
[2016-10-19] MEDS: Ferrous Sulfate Oral Soln 300 MG/5 ML UDC PO SCH ×2 (08:38→17:13)
--- NOTE | 2016-10-19 09:47 | Internal Med Progress Note ---
<Tor Acevedo - Last Filed: 10/19/16 14:10> Date of Encounter: 10/19/16 Time of Encounter: 08:30 - Assessment and plan (1) Acute respiratory failure Current Visit: Yes Status: Acute Assessment and plan: - With increased need of oxygen on admission. - Likely secondary to aspiration pneumonia and diastolic CHF exacerbation in the setting of anemia. - Continue IV Zosyn for aspiration pneumonia. - Continue diuresis with Lasix for CHF. - Continue supplemental oxygen and as needed intermittent BiPAP. - Continue to monitor. Qualifiers: Respiratory failure complication: hypoxia Qualified Code(s): J96.01 - Acute respiratory failure with hypoxia (2) Anemia Current Visit: Yes Status: Acute Assessment and plan: - Hgb 9.3 on admission but continued to drop to as low as 7.5 on 10/17/16. - Acute blood loss anemia likely secondary to GI bleed as stool occult test positive. - Status post 1 unit of pRBC on 10/17/16 - Hgb stable at 9.6 today. - Continue to monitor and give pRBC transfusion if Hgb < 7. Qualifiers: Anemia type: unspecified type Qualified Code(s): D64.9 - Anemia, unspecified (3) GI bleed Current Visit: Yes Status: Acute Assessment and plan: - Hgb dropped to as low as 7.5 on 10/17/16. - Status post 1 unit of pRBC on 10/17/16 - Stool occult test positive. - Hgb stable at 9.6 today. - Continue Protonix IV BID. - GI consulted and appreciate further work-up and recommendations. Qualifiers: GI bleed type/associated pathology: unspecified gastrointestinal hemorrhage type Qualified Code(s): K92.2 - Gastrointestinal hemorrhage, unspecified (4) Encephalopathy acute Current Visit: Yes Status: Resolved Assessment and plan: - Unknown etiology. Differentials include serotonin syndrome, metabolic encephalopathy, delirium, progression of dementia. - CT head found no acute intracranial abnormality. - CSF gram stain and culture don't indicate infection. - Neurology on board and doubted this is a primary neurologic etiology - Significantly mproved as patient is more awake today. - Continue to monitor. (5) Aspiration pneumonia Current Visit: Yes Status: Acute Assessment and plan: - CXR suggests of pneumonia and pulmonary edema. - Continue IV Zosyn. - Speech therapy and crop pest control specialist on board. - Was on tube feeding but patient pulled his NG tube out. - Currently on honey thickened liquid diet. May advance diet if tolerated. Qualifiers: Aspiration pneumonia type: due to regurgitated food Laterality: bilateral Lung location: upper lobe of lung Qualified Code(s): J69.0 - Pneumonitis due to inhalation of food and vomit (6) Serotonin syndrome Current Visit: Yes Status: Suspected Assessment and plan: - Concern of serotonin syndrome given high fever, rigidity and ocular clonus and patient was on Zoloft, valproic acid, buspar at [facility]. - Cautious to resume those medications upon discharge. (7) Acute renal failure superimposed on chronic kidney disease Current Visit: No Status: Acute Assessment and plan: - SCr as high as 2.39 on 10/17/16 compared to his baseline ~ 1.7. - Likely secondary hypoperfusion related to septic shock and anemia. - Continue to improve as SCr 1.67 today. - Avoid nephrotoxin. - Continue to monitor renal function and electrolytes. (8) Dementia Current Visit: Yes Status: Chronic Assessment and plan: - History of dementia. - Current mental status can be part of dementia progression. - Continue memantine and donepezil. Qualifiers: Dementia type: unspecified type Dementia behavioral disturbance: without behavioral disturbance Qualified Code(s): F03.90 - Unspecified dementia without behavioral disturbance (9) Septic shock Current Visit: Yes Status: Resolved Assessment and plan: - BP as low as 84/45 on 10/16/16 requiring vasopressor in ICU. - Likely secondary to aspiration pneumonia. - Resolved as BP improves and no need of vasopressor. (10) Diabetes mellitus Current Visit: Yes Status: Chronic Assessment and plan: - Continue basal and sliding scale insulin with routine glucose monitoring. Qualifiers: Diabetes mellitus type: type 2 Diabetes mellitus complication status: without complication Diabetes mellitus mcc insulin use: with mcc use Qualified Code(s): E11.9 - Type 2 diabetes mellitus without complications ; Z79.4 - FDC (current) use of insulin (11) Diastolic heart failure Current Visit: Yes Status: Acute Assessment and plan: - Echo on 10/16/16 showed LVEF 60% with moderate diastolic LV dysfunction. No significant valvular abnormality. - Continue diuresis with Lasix Qualifiers: Heart failure chronicity: acute on chronic Qualified Code(s): I50.33 - Acute on chronic diastolic (congestive) heart failure (12) Atrial fibrillation Current Visit: Yes Status: Chronic Assessment and plan: - Currently rate controlled. - No on anticoagulation given history of GI bleed. Qualifiers: Atrial fibrillation type: paroxysmal Qualified Code(s): I48.0 - Paroxysmal atrial fibrillation - Subjective Interval history: Overnight, patient pulled his NG tube out. Patient was seen and examined this morning. Patient is much more awake than yesterday and able to make some joke despite he is orient to person and part of place ("hospital") only. Patient denies any pain, shortness of breath, nausea, vomiting, diarrhea. Per patient's daughter who fed patient this morning, patient did finish all his breakfast this morning. Per patient's , patient's mental status improves but is still not his baseline yet. - Constitutional Vitals: Temp Pulse Resp BP Pulse Ox 99.1 F 76 17 130/57 95 10/19/16 07:10 10/19/16 07:10 10/19/16 07:10 10/19/16 07:10 10/19/16 07:10 General appearance: Present: cooperative, A&O X 2 (Person and part of place ( "hospital").), no acute distress - Head Head exam: Present: atraumatic, normocephalic - Eye Eye exam: Present: EOMI, PERRL, conjuntiva pink, sclera anicteric - Neck Neck exam general surgery: Present: supple, trachea midline. Absent: lymphadenopathy - Respiratory Respiratory exam: Present: decreased breath sounds. Absent: accessory muscle use, rales, rhonchi, wheezes - Cardiovascular Cardiovascular exam: Present: RRR, +S1, +S2. Absent: diastolic murmur, gallop, rubs, systolic murmur - GI/Abdominal GI/Abdominal exam: Present: normal bowel sounds, soft, no peritoneal signs. Absent: distended, tenderness - Extremities Exam Extremities exam: Present: warm, radial pulses palpable and symetrical. Absent : calf tenderness, cyanotic, pedal edema - Neurological Exam Neurological exam: Present: no focal deficits. Absent: pronater drift, facial droop, speech deficit - Skin Skin exam: Present: dry, intact, warm Internal Medicine: Result - Labs CBC & Chem 7: 10/19/16 04:12 10/19/16 04:12 Labs: Short CBC 10/19/16 Range/Units 04:12 WBC 8.6 (4.3-11.1) K/mcL Hgb 9.6 L (12.9-16.9) g/dL Hct 28.7 L (37.5-50.1) % Plt Count 133 L (140-400) K/mcL Neutrophils # 5.9 (1.6-8.9) K/mcL BMP 10/19/16 04:12 Sodium 145 Potassium 4.0 Chloride 104 Carbon Dioxide 31 H BUN 51 H Creatinine 1.67 H Glucose 308 H Calcium 9.6 - ABG Interpretation ABG results: ABG ABG pH 7.37 pH Units (7.32-7.45) 10/16/16 01:12 ABG pCO2 52 mmHg (35-45) H 10/16/16 01:12 ABG pO2 90 mmHg (85-104) 10/16/16 01:12 ABG O2 Saturation 97 % (95-98) 10/16/16 01:12 - Impressions Impressions Chest X-Ray 10/19/16 02:25 IMPRESSION: Worsening pulmonary edema and bilateral effusions. Nasogastric tube is no longer seen. D/ / 10/19/2016 07:03:24 Anabella Rocha MD / [email or web address] Interpreting Provider: Anabella Rocha MD Consult Discharge Plan - Plan Referrals: NO,PCP [Primary Care Provider] - <Antwan Galvez P - Last Filed: 10/19/16 17:53> Date of Encounter: 10/19/16 - Constitutional Vitals: Temp Pulse Resp BP Pulse Ox 99.1 F 87 18 171/82 93 10/19/16 16:00 10/19/16 16:00 10/19/16 16:00 10/19/16 16:00 10/19/16 16:00 Internal Medicine: Result - Labs CBC & Chem 7: 10/19/16 04:12 10/19/16 04:12 Labs: Short CBC 10/19/16 Range/Units 04:12 WBC 8.6 (4.3-11.1) K/mcL Hgb 9.6 L (12.9-16.9) g/dL Hct 28.7 L (37.5-50.1) % Plt Count 133 L (140-400) K/mcL Neutrophils # 5.9 (1.6-8.9) K/mcL BMP 10/19/16 04:12 Sodium 145 Potassium 4.0 Chloride 104 Carbon Dioxide 31 H BUN 51 H Creatinine 1.67 H Glucose 308 H Calcium 9.6 - ABG Interpretation ABG results: ABG ABG pH 7.37 pH Units (7.32-7.45) 10/16/16 01:12 ABG pCO2 52 mmHg (35-45) H 10/16/16 01:12 ABG pO2 90 mmHg (85-104) 10/16/16 01:12 ABG O2 Saturation 97 % (95-98) 10/16/16 01:12 - Impressions Impressions Chest X-Ray 10/19/16 02:25 IMPRESSION: Worsening pulmonary edema and bilateral effusions. Nasogastric tube is no longer seen. D/ / 10/19/2016 07:03:24 Anabella Rocha MD / [facility] Interpreting Provider: Anabella Rocha MD - Attending Attestation I examined this patient and my medical decision-making was reviewed with the DEPUTY CHIEF MAGISTRATE/PA/Advanced Practice Nurse/Resident Physician. I agree with the documented findings, disposition and treatment plan as described except to the extent set forth below.
[2016-10-19] MEDS: Insulin DETEMIR 100 UNIT/ML X5UNITS SQ SCH (09:48)
--- NOTE | 2016-10-19 12:10 | Gastroenterology Consult Note ---
<Rajinder Lepe - Last Filed: 10/19/16 12:07> Date of Encounter: 10/19/16 Time of Encounter: 11:00 - Assessment and plan (1) Anemia Current Visit: Yes Status: Acute Assessment and plan: Hgb 9.3 on admission and dropped to 7.5 on 10/17. Hgb this AM 9.6. Pt received 1 unit PRBC on 10/17. Hgb stable the past 2 days. Continue to monitor CBC and transfuse PRBC as needed. No acute indication for colonoscopy. Plan to complete colonoscopy on Sunday, if he is still admitted. Complete bowel prep on Sunday. Clear liquid diet Monday 10/23, no red or purple. NPO at midnight Sunday night. If unable tolerate NuLytely please use MiraLAX prep. If not clear by 6 AM Sunday, give 2 tap water enemas. Qualifiers: Anemia type: unspecified type Qualified Code(s): D64.9 - Anemia, unspecified (2) Sepsis Current Visit: No Status: Resolved Qualifiers: Sepsis type: sepsis due to unspecified organism Qualified Code(s): A41.9 - Sepsis, unspecified organism (3) Altered mental status Current Visit: No Status: Resolved Qualifiers: Altered mental status type: unspecified Qualified Code(s): R41.82 - Altered mental status, unspecified (4) Acute respiratory failure Current Visit: Yes Status: Acute Qualifiers: Respiratory failure complication: hypoxia Qualified Code(s): J96.01 - Acute respiratory failure with hypoxia (5) Aspiration pneumonia Current Visit: Yes Status: Acute Qualifiers: Aspiration pneumonia type: due to regurgitated food Laterality: bilateral Lung location: upper lobe of lung Qualified Code(s): J69.0 - Pneumonitis due to inhalation of food and vomit - Time Spent With Patient Total time spent is greater than 50% in coordination of care (as documented) at patient's floor/unit and/or counseling patient: GI History of Present Illness - Data of Consult Patient: new to practice Consult date: 10/19/16 Requesting Physician: Babak Linder MD - Consult Narrative Reason for consult: Anemia History of present illness: Mr. Thrasher is a 76 year old male with PMHx of arthritis, Afib, CHF, COPD, CAD, CKD, dementia, DM, HTN who was sent to the ED for evaluation of confusion, altered mental status, and lethargy. He was transferred to the ICU for hypoxic respiratory failure on 10/15 likely secondary to aspiration pneumonia and CHF. He was started on IV antibiotics and diuresis. He has baseline dementia, and at baseline he is awake, alert, and interactive. CT head showed stable global atrophy and chronic small vessel ischemic disease, no acute intracranial hemorrhage, hydrocephalus, or evidence of infarct. LP negative for ASSISTANT GOLF COACH infection. We have been consulted to evaluate his anemia. On admission Hgb was 9.3 and dropped to 7.5 on 10/17. He has received 1 unit PRBC and Hgb today is 9.6. FOBT was positive. He has been started on IV PPI BID. Family at bedside stated the patient had a colonoscopy 2-3 years ago, and they were concerned for gastric cancer due to a "spot". At that time, the pt refused any additional surgery, and it has not been worked up since that time. Procedures: None NSAIDs: ASA Anticoagulation: None Past Med Surg Social Fam HX - Past Medical History Medical history: arthritis, atrial fibrillation, CHF, COPD, coronary artery disease, dementia, diabetes, hypertension, renal disease, venous stasis Psychiatric history: anxiety, depression - Past Surgical History Surgical History: no surgical history (Unable to obtain due to patient's mental status) - Social History Smoking Status: Never smoker Smokeless Tobacco Status: No Alcohol use: none Drug use: none - Family History Daughter Living Status: Still Living Hx Family Cardiac Disorders: No Hx Family Respiratory Disorders: No Hx Family Cancer: No Hx Family GI Disorders: No Hx Family Genitourinary Disorders: Yes (Chronic kidney disease) - Gastrointestinal Gastrointestinal: Present: as per HPI - Constitutional Constitutional: as per HPI - EENT Eyes: as per HPI Ears: Present: as per HPI Nose, mouth and throat: Present: as per HPI - Cardiovascular Cardiovascular ROS: Present: as per HPI - Respiratory Respiratory IM: Present: as per HPI - Genitourinary Genitourinary: Absent: change in color, Urinary frequency - Neurological ROS Neurological GI: Present: as per HPI - Hematologic/Lymphatic Hematologic/Lymphatic pediatric: Present: as per HPI - Musculoskeletal Musculoskeletal ROS GI: Present: as per HPI - Integumentary Integumentary GI: Present: as per HPI - Psychiatric ROS Psychiatric GI: Present: as per HPI - Endocrine Endocrine IM: Present: as per HPI - Constitutional Vitals: Temp Pulse Resp BP Pulse Ox 97.9 F 78 16 149/71 95 10/19/16 11:35 10/19/16 11:35 10/19/16 11:35 10/19/16 11:35 10/19/16 11:35 General appearance: Present: cooperative, answers questions appropriately - Head Head exam: Present: atraumatic, normocephalic - Eye Eye exam: Present: normal appearance, sclera anicteric - ENT ENT exam: Present: mucous membranes dry - Neck Neck exam general surgery: Present: normal inspection, trachea midline - Respiratory Respiratory exam: Present: decreased breath sounds, CTAB - Cardiovascular Cardiovascular exam: Present: RRR, +S1, +S2 - GI/Abdominal GI/Abdominal exam: Present: soft, no peritoneal signs. Absent: distended, firm , guarding, tenderness - Rectal Rectal exam: Present: deferred - Extremities Exam Extremities exam: Present: warm - Neurological Exam Additional comments: Follows simple commands, somnolent but arousable - Psychiatric Psychiatric exam: Present: normal affect, normal mood - Skin Skin exam: Present: dry, intact, normal color, warm Results - Labs CBC & Chem 7: 10/19/16 04:12 10/19/16 04:12 Labs: Last Result Calcium 9.6 mg/dL (8.6-10.8) 10/19/16 04:12 Iron 9 mcg/dL (65-175) L 10/16/16 03:26 % Saturation 5 % (20-55) L 10/16/16 03:26 Transferrin 136 mg/dL (174-364) L 10/16/16 03:26 Ferritin 306 ng/ml (22-275) H 10/16/16 03:26 Troponin I 0.06 ng/mL (0-0.03) H* 10/15/16 14:31 Triglycerides 97 mg/dL (< 150) 10/15/16 05:30 Stool Occult Blood Positive (Negative) A 10/17/16 14:20 Entire Visit Hgb 9.6 g/dL (12.9-16.9) L 10/19/16 04:12 Hct 28.7 % (37.5-50.1) L 10/19/16 04:12 Ferritin 306 ng/ml (22-275) H 10/16/16 03:26 Total Bilirubin 1.2 mg/dL (0.2-1.2) 10/16/16 03:26 AST 18 Units/L (5-34) 10/16/16 03:26 ALT 8 Units/L (0-55) 10/16/16 03:26 - ABG ABG results: ABG ABG pH 7.37 pH Units (7.32-7.45) 10/16/16 01:12 ABG pCO2 52 mmHg (35-45) H 10/16/16 01:12 ABG pO2 90 mmHg (85-104) 10/16/16 01:12 ABG O2 Saturation 97 % (95-98) 10/16/16 01:12 - Impressions Impressions Chest X-Ray 10/19/16 02:25 IMPRESSION: Worsening pulmonary edema and bilateral effusions. Nasogastric tube is no longer seen. D/ / 10/19/2016 07:03:24 Anabella Rocha MD / [facility] Interpreting Provider: Anabella Rocha MD Consult Discharge Plan - Plan Referrals: NO,PCP [Primary Care Provider] - <Elizabeth aBiley - Last Filed: 10/19/16 18:54> Date of Encounter: 10/19/16 Time of Encounter: 18:00 - Time Spent With Patient Total time spent is greater than 50% in coordination of care (as documented) at patient's floor/unit and/or counseling patient: GI History of Present Illness - Data of Consult Requesting Physician: Babak Linder MD - Consult Narrative History of present illness: Mr. Thrasher is a 76 year old male - Constitutional Vitals: Temp Pulse Resp BP Pulse Ox 99.1 F 87 18 171/82 93 10/19/16 16:00 10/19/16 16:00 10/19/16 16:00 10/19/16 16:00 10/19/16 16:00 Results - Labs CBC & Chem 7: 10/19/16 04:12 10/19/16 04:12 Labs: Last Result Calcium 9.6 mg/dL (8.6-10.8) 10/19/16 04:12 Iron 9 mcg/dL (65-175) L 10/16/16 03:26 % Saturation 5 % (20-55) L 10/16/16 03:26 Transferrin 136 mg/dL (174-364) L 10/16/16 03:26 Ferritin 306 ng/ml (22-275) H 10/16/16 03:26 Troponin I 0.06 ng/mL (0-0.03) H* 10/15/16 14:31 Triglycerides 97 mg/dL (< 150) 10/15/16 05:30 Stool Occult Blood Positive (Negative) A 10/17/16 14:20 Entire Visit Hgb 9.6 g/dL (12.9-16.9) L 10/19/16 04:12 Hct 28.7 % (37.5-50.1) L 10/19/16 04:12 Ferritin 306 ng/ml (22-275) H 10/16/16 03:26 Total Bilirubin 1.2 mg/dL (0.2-1.2) 10/16/16 03:26 AST 18 Units/L (5-34) 10/16/16 03:26 ALT 8 Units/L (0-55) 10/16/16 03:26 - ABG ABG results: ABG ABG pH 7.37 pH Units (7.32-7.45) 10/16/16 01:12 ABG pCO2 52 mmHg (35-45) H 10/16/16 01:12 ABG pO2 90 mmHg (85-104) 10/16/16 01:12 ABG O2 Saturation 97 % (95-98) 10/16/16 01:12 - Impressions Impressions Chest X-Ray 10/19/16 02:25 IMPRESSION: Worsening pulmonary edema and bilateral effusions. Nasogastric tube is no longer seen. D/ / 10/19/2016 07:03:24 Anabella Rocha MD / [facility] Interpreting Provider: Anabella Rocha MD - Attending Attestation I examined this patient and my medical decision-making was reviewed with the FREELANCE ART DIRECTOR/PA/Advanced Practice Nurse/Resident Physician. I agree with the documented findings, disposition and treatment plan as described except to the extent set forth below. Patient with anemia and now with GI bleeding. Had scope done couple of years ago anemia during hospitalization again no overt GI bleeding. Patient would be difficult to get prepped. Would recommend that we just transfuse and follow his hemoglobin for now discussed with the family. If needed then he can always consider scoping him as an outpatient. But if remain in the hospital for other medical reason and family/patient still want the scope to be done then we can do him on Sunday
[2016-10-20 04:14] LABS: Hematocrit 28.4 % (37.5-50.1); Hemoglobin 8.9 g/dL (12.9-16.9); Mean Corpuscular HGB Conc 31.3 g/dL (31.6-35.5); Mean Corpuscular Hemoglobin 30.5 pg (28.0-33.3); Mean Corpuscular Volume 97.3 fL (83.0-100.0); Mean Platelet Volume 12.5 fL (9.4-12.4); Platelet Count 167 K/mcL (140-400); Red Blood Count 2.92 M/mcL (4.19-5.50); Red Cell Distribution Width 15.2 % (11.5-14.5)
[2016-10-20 04:25] LABS: Calcium 9.3 mg/dL (8.6-10.8); Potassium 3.7 mEq/L (3.5-4.5)
[2016-10-20 04:38] LABS: Lymphocytes # 0.6 K/mcL (0.6-4.6); Monocytes # 2.1 K/mcL (0.0-1.3); Neutrophils # 6.7 K/mcL (1.6-8.9); Platelet Estimate Normal (Normal)
[2016-10-20] MEDS: hydrALAZINE 25 MG TABLET PO SCH ×3 (05:40→20:34)
[2016-10-20] MEDS: *HR* Heparin 5,000 UNIT/ML VIAL SQ SCH ×2 (05:40→17:19)
[2016-10-20] MEDS: Piperacillin/Tazobactam 3.375 GM in D5% in Water (Mini-Bag+) 100 ML IVPB SCH ×3 (05:41→20:34)
[2016-10-20] MEDS: Pantoprazole 40 MG VIAL IVP SCH ×2 (05:41→17:17)
[2016-10-20] MEDS: Aspirin Enteric Coated 81 MG Tablet PO SCH (09:00)
[2016-10-20] MEDS: Furosemide 40 MG/4 ML VIAL IVP SCH ×2 (09:00→17:17)
[2016-10-20] MEDS: Ferrous Sulfate Oral Soln 300 MG/5 ML UDC PO SCH ×2 (09:01→17:18)
[2016-10-20] MEDS: Insulin LISPRO 300 UNITS/3 ML VIAL SQ SCH ×3 (09:01→17:17)
[2016-10-20] MEDS: Insulin DETEMIR 100 UNIT/ML X5UNITS SQ SCH (09:01)
--- NOTE | 2016-10-20 13:13 | Internal Med Progress Note ---
<Antwan Galvez P - Last Filed: 10/20/16 13:39> Date of Encounter: 10/20/16 - Constitutional Vitals: Temp Pulse Resp BP Pulse Ox 98.3 F 67 16 145/117 90 10/20/16 11:54 10/20/16 11:54 10/20/16 08:00 10/20/16 11:54 10/20/16 11:54 Internal Medicine: Result - Labs CBC & Chem 7: 10/20/16 03:22 10/20/16 03:22 Labs: Short CBC 10/20/16 Range/Units 03:22 WBC 9.3 (4.3-11.1) K/mcL Hgb 8.9 L (12.9-16.9) g/dL Hct 28.4 L (37.5-50.1) % Plt Count 167 (140-400) K/mcL Neutrophils # 6.7 (1.6-8.9) K/mcL BMP 10/20/16 03:22 Sodium 139 Potassium 3.7 Chloride 99 Carbon Dioxide 30 H BUN 46 H Creatinine 1.60 H Glucose 437 H Calcium 9.3 - ABG Interpretation ABG results: ABG ABG pH 7.37 pH Units (7.32-7.45) 10/16/16 01:12 ABG pCO2 52 mmHg (35-45) H 10/16/16 01:12 ABG pO2 90 mmHg (85-104) 10/16/16 01:12 ABG O2 Saturation 97 % (95-98) 10/16/16 01:12 - Impressions Impressions Chest X-Ray 10/19/16 02:25 IMPRESSION: Worsening pulmonary edema and bilateral effusions. Nasogastric tube is no longer seen. D/ / 10/19/2016 07:03:24 Anabella Rocha MD / [facility] Interpreting Provider: Anabella Rocha MD Consult Discharge Plan - Plan Referrals: NO,PCP [Primary Care Provider] - - Attending Attestation I examined this patient and my medical decision-making was reviewed with the CRITICAL CARE NURSE PRACTITIONER/PA/Advanced Practice Nurse/Resident Physician. I agree with the documented findings, disposition and treatment plan as described except to the extent set forth below. <Tor Acevedo - Last Filed: 10/20/16 14:38> Date of Encounter: 10/20/16 Time of Encounter: 09:45 - Assessment and plan (1) Acute respiratory failure Current Visit: Yes Status: Acute Assessment and plan: - With increased need of oxygen on admission. - Likely secondary to aspiration pneumonia and diastolic CHF exacerbation in the setting of anemia. - Continue IV Zosyn for aspiration pneumonia. - Continue diuresis with Lasix for CHF. - Continue supplemental oxygen and as needed intermittent BiPAP. - Continue to monitor. Qualifiers: Respiratory failure complication: hypoxia Qualified Code(s): J96.01 - Acute respiratory failure with hypoxia (2) Anemia Current Visit: Yes Status: Acute Assessment and plan: - Hgb 9.3 on admission but continued to drop to as low as 7.5 on 10/17/16. - Acute blood loss anemia likely secondary to GI bleed as stool occult test positive. - Status post 1 unit of pRBC on 10/17/16 - Hgb dropped from 9.6 yesterday to 8.9 this morning. - Will repeat H&H this afternoon. - Continue to monitor and give pRBC transfusion if Hgb < 7. Qualifiers: Anemia type: unspecified type Qualified Code(s): D64.9 - Anemia, unspecified (3) GI bleed Current Visit: Yes Status: Acute Assessment and plan: - Hgb dropped to as low as 7.5 on 10/17/16. - Status post 1 unit of pRBC on 10/17/16 - Stool occult test positive. - Hgb dropped from 9.6 yesterday to 8.9 this morning. - Continue Protonix IV BID. - GI consulted and plan to have colonoscopy on 10/24. Qualifiers: GI bleed type/associated pathology: unspecified gastrointestinal hemorrhage type Qualified Code(s): K92.2 - Gastrointestinal hemorrhage, unspecified (4) Encephalopathy acute Current Visit: Yes Status: Resolved Assessment and plan: - Unknown etiology. Differentials include serotonin syndrome, metabolic encephalopathy, delirium, progression of dementia. - CT head found no acute intracranial abnormality. - CSF gram stain and culture don't indicate infection. - Neurology on board and doubted this is a primary neurologic etiology - Significantly improved as patient remains more awake today but still not back to his baseline per family. - Continue to monitor. (5) Aspiration pneumonia Current Visit: Yes Status: Acute Assessment and plan: - CXR suggests of pneumonia and pulmonary edema. - Continue IV Zosyn (since 10/15 night) and plan to finish total 7-day course ( expected time to finish: 10/22 night) - Speech therapy and supervisor publications production on board. - Was on tube feeding but patient pulled his NG tube out. - Currently on honey thickened liquid diet. May advance diet if tolerated. Qualifiers: Aspiration pneumonia type: due to regurgitated food Laterality: bilateral Lung location: upper lobe of lung Qualified Code(s): J69.0 - Pneumonitis due to inhalation of food and vomit (6) Serotonin syndrome Current Visit: Yes Status: Suspected Assessment and plan: - Concern of serotonin syndrome given high fever, rigidity and ocular clonus and patient was on Zoloft, valproic acid, buspar at shelter. - Cautious to resume those medications upon discharge. (7) Acute renal failure superimposed on chronic kidney disease Current Visit: No Status: Acute Assessment and plan: - SCr as high as 2.39 on 10/17/16 compared to his baseline ~ 1.7. - Likely secondary hypoperfusion related to septic shock and anemia. - Continue to improve as SCr 1.21 today. - Avoid nephrotoxin. - Continue to monitor renal function and electrolytes. (8) Dementia Current Visit: Yes Status: Chronic Assessment and plan: - History of dementia. - Current mental status can be part of dementia progression. - Continue memantine and donepezil. Qualifiers: Dementia type: unspecified type Dementia behavioral disturbance: without behavioral disturbance Qualified Code(s): F03.90 - Unspecified dementia without behavioral disturbance (9) Septic shock Current Visit: Yes Status: Resolved Assessment and plan: - BP as low as 84/45 on 10/16/16 requiring vasopressor in ICU. - Likely secondary to aspiration pneumonia. - Resolved as BP improves and no need of vasopressor. (10) Diabetes mellitus Current Visit: Yes Status: Chronic Assessment and plan: - Continue basal and sliding scale insulin with routine glucose monitoring. Qualifiers: Diabetes mellitus type: type 2 Diabetes mellitus complication status: without complication Diabetes mellitus alf insulin use: with alf use Qualified Code(s): E11.9 - Type 2 diabetes mellitus without complications ; Z79.4 - USP (current) use of insulin (11) Diastolic heart failure Current Visit: Yes Status: Acute Assessment and plan: - Echo on 10/16/16 showed LVEF 60% with moderate diastolic LV dysfunction. No significant valvular abnormality. - Negative 2.6 L so far. - Continue diuresis with Lasix. Qualifiers: Heart failure chronicity: acute on chronic Qualified Code(s): I50.33 - Acute on chronic diastolic (congestive) heart failure (12) Atrial fibrillation Current Visit: Yes Status: Chronic Assessment and plan: - Currently rate controlled. - No on anticoagulation given history of GI bleed. Qualifiers: Atrial fibrillation type: paroxysmal Qualified Code(s): I48.0 - Paroxysmal atrial fibrillation - Subjective Interval history: No significant event noted overnight. Patient was seen and examined this morning. Patient is awake but orient to person and part of place ("hospital") only. Patient denies any pain, shortness of breath, lightheadedness, syncope. Patient has no bowel movement yet so cannot tell if there is any hematochezia or melena. Patient states he does not want NG tube and likes to go home. Per patient's daughter at bedside, patient's mental status is still not his baseline yet. - Constitutional Vitals: Temp Pulse Resp BP Pulse Ox 98.3 F 67 16 145/117 90 10/20/16 11:54 10/20/16 11:54 10/20/16 08:00 10/20/16 11:54 10/20/16 11:54 General appearance: Present: cooperative, A&O X 2 (Person and part of place ( "hospital").), no acute distress - Head Head exam: Present: atraumatic, normocephalic - Eye Eye exam: Present: EOMI, PERRL, conjuntiva pink, sclera anicteric - Neck Neck exam general surgery: Present: supple, trachea midline. Absent: lymphadenopathy - Respiratory Respiratory exam: Present: rales (Right lower lung. ). Absent: accessory muscle use, rhonchi, wheezes - Cardiovascular Cardiovascular exam: Present: RRR, +S1, +S2. Absent: diastolic murmur, gallop, rubs, systolic murmur - GI/Abdominal GI/Abdominal exam: Present: normal bowel sounds, soft, no peritoneal signs. Absent: distended, tenderness - Extremities Exam Extremities exam: Present: warm, radial pulses palpable and symetrical. Absent : calf tenderness, cyanotic, pedal edema - Neurological Exam Neurological exam: Present: no focal deficits. Absent: pronater drift, facial droop, speech deficit - Skin Skin exam: Present: dry, intact, warm Internal Medicine: Result - Labs CBC & Chem 7: 10/20/16 03:22 10/20/16 03:22 Labs: Short CBC 10/20/16 Range/Units 03:22 WBC 9.3 (4.3-11.1) K/mcL Hgb 8.9 L (12.9-16.9) g/dL Hct 28.4 L (37.5-50.1) % Plt Count 167 (140-400) K/mcL Neutrophils # 6.7 (1.6-8.9) K/mcL BMP 10/20/16 03:22 Sodium 139 Potassium 3.7 Chloride 99 Carbon Dioxide 30 H BUN 46 H Creatinine 1.60 H Glucose 437 H Calcium 9.3 - ABG Interpretation ABG results: ABG ABG pH 7.37 pH Units (7.32-7.45) 10/16/16 01:12 ABG pCO2 52 mmHg (35-45) H 10/16/16 01:12 ABG pO2 90 mmHg (85-104) 10/16/16 01:12 ABG O2 Saturation 97 % (95-98) 10/16/16 01:12 - Impressions Impressions Chest X-Ray 10/19/16 02:25 IMPRESSION: Worsening pulmonary edema and bilateral effusions. Nasogastric tube is no longer seen. D/ / 10/19/2016 07:03:24 Anabella Rocah MD / [facility] Interpreting Provider: Anabella Rocha MD
[2016-10-20 14:45] LABS: Eosinophils # 0.2 K/mcL (0.0-0.6); Hematocrit 27.8 % (37.5-50.1); Hemoglobin 8.9 g/dL (12.9-16.9); Mean Corpuscular Hemoglobin 31.1 pg (28.0-33.3); Mean Corpuscular Volume 97.2 fL (83.0-100.0); Mean Platelet Volume 11.9 fL (9.4-12.4); Platelet Count 168 K/mcL (140-400); Red Blood Count 2.86 M/mcL (4.19-5.50); Red Cell Distribution Width 14.8 % (11.5-14.5)
[2016-10-20 15:16] LABS: Lymphocytes # 1.3 K/mcL (0.6-4.6); Monocytes # 1.3 K/mcL (0.0-1.3); Neutrophils # 4.9 K/mcL (1.6-8.9)
[2016-10-20 15:17] LABS: Platelet Estimate Normal (Normal)
[2016-10-21 04:40] LABS: Hematocrit 28.6 % (37.5-50.1); Hemoglobin 9.3 g/dL (12.9-16.9); Lymphocytes # 1.1 K/mcL (0.6-4.6); Mean Corpuscular HGB Conc 32.5 g/dL (31.6-35.5); Mean Corpuscular Hemoglobin 31.5 pg (28.0-33.3); Mean Corpuscular Volume 96.9 fL (83.0-100.0); Mean Platelet Volume 12.9 fL (9.4-12.4); Platelet Count 190 K/mcL (140-400); Red Blood Count 2.95 M/mcL (4.19-5.50); Red Cell Distribution Width 14.8 % (11.5-14.5)
[2016-10-21 05:01] LABS: Calcium 9.1 mg/dL (8.6-10.8); Potassium 3.4 mEq/L (3.5-4.5)
[2016-10-21] MEDS: Piperacillin/Tazobactam 3.375 GM in D5% in Water (Mini-Bag+) 100 ML IVPB SCH ×2 (05:19→16:01)
[2016-10-21] MEDS: Pantoprazole 40 MG VIAL IVP SCH ×2 (05:20→17:26)
[2016-10-21] MEDS: hydrALAZINE 25 MG TABLET PO SCH ×3 (05:20→21:17)
[2016-10-21] MEDS: *HR* Heparin 5,000 UNIT/ML VIAL SQ SCH ×2 (05:20→17:26)
[2016-10-21 05:40] LABS: Eosinophils # 0.4 K/mcL (0.0-0.6); Large Platelets Present (Not Present); Monocytes # 1.1 K/mcL (0.0-1.3); Neutrophils # 4.2 K/mcL (1.6-8.9); Platelet Estimate Normal (Normal)
[2016-10-21 05:41] LABS: Polychromasia 1+ (Not Present); Reactive Lymphocytes Present (Not Present); Smudge Cells Present (Not Present)
[2016-10-21] MEDS: Insulin LISPRO 300 UNITS/3 ML VIAL SQ SCH ×4 (08:29→22:19)
[2016-10-21] MEDS: Ferrous Sulfate Oral Soln 300 MG/5 ML UDC PO SCH ×2 (08:30→16:00)
[2016-10-21] MEDS: Aspirin Enteric Coated 81 MG Tablet PO SCH (08:30)
[2016-10-21] MEDS: Furosemide 40 MG/4 ML VIAL IVP SCH ×2 (08:30→16:00)
[2016-10-21] MEDS ORDERED: Insulin DETEMIR 100 UNIT/ML X5UNITS SQ SCH (09:00)
--- NOTE | 2016-10-21 11:03 | Internal Med Progress Note ---
Date of Encounter: 10/21/16 Time of Encounter: 11:01 - Assessment and plan (1) Acute respiratory failure Current Visit: Yes Status: Acute Assessment and plan: - With increased need of oxygen on admission. - Likely secondary to aspiration pneumonia and diastolic CHF exacerbation in the setting of anemia. - Continue IV Zosyn for aspiration pneumonia. - Continue diuresis with Lasix for CHF. - Continue supplemental oxygen and as needed intermittent BiPAP. - Continue to monitor. 10/21/2016 Patient is feeling much better as compared to yesterday. We will continue IV antibiotics. We will continue diuresis We will recheck labs tomorrow morning Qualifiers: Respiratory failure complication: hypoxia Qualified Code(s): J96.01 - Acute respiratory failure with hypoxia (2) Anemia Current Visit: Yes Status: Acute Assessment and plan: - Hgb 9.3 on admission but continued to drop to as low as 7.5 on 10/17/16. - Acute blood loss anemia likely secondary to GI bleed as stool occult test positive. - Status post 1 unit of pRBC on 10/17/16 - Hgb dropped from 9.6 yesterday to 8.9 this morning. - Will repeat H&H this afternoon. - Continue to monitor and give pRBC transfusion if Hgb < 7. 10/21/2016 Hemoglobin this morning is stable as compared to yesterday. there is no further hemoglobin drop. There is no occult and farhat bleeding noted. Qualifiers: Anemia type: unspecified type Qualified Code(s): D64.9 - Anemia, unspecified - Subjective Interval history: Patient seen and examined. Comfortably lying on a bed. Family at bedside. - Constitutional Vitals: Temp Pulse Resp BP Pulse Ox 98.9 F 64 16 150/55 93 10/21/16 07:52 10/21/16 07:52 10/21/16 07:52 10/21/16 07:52 10/21/16 07:52 General appearance: Present: cooperative, A&O X 2 (Person and part of place ( "hospital").), no acute distress - Head Head exam: Present: atraumatic, normocephalic - Eye Eye exam: Present: PERRL, conjuntiva pink, sclera anicteric Pupils: Present: PERRL - Neck Neck exam general surgery: Present: supple, trachea midline. Absent: lymphadenopathy - Respiratory Respiratory exam: Present: CTAB. Absent: accessory muscle use, rales, rhonchi, wheezes - Cardiovascular Cardiovascular exam: Present: RRR, +S1, +S2. Absent: diastolic murmur, gallop, rubs, systolic murmur - GI/Abdominal GI/Abdominal exam: Present: normal bowel sounds, soft, no peritoneal signs. Absent: distended, tenderness - Extremities Exam Extremities exam: Present: warm, radial pulses palpable and symetrical. Absent : calf tenderness, cyanotic, pedal edema - Neurological Exam Neurological exam: Present: CN II-XII intact, oriented X3, no focal deficits. Absent: pronater drift, facial droop, speech deficit - Skin Skin exam: Present: dry, intact Internal Medicine: Result - Labs CBC & Chem 7: 10/21/16 03:33 10/21/16 03:33 Labs: Short CBC 10/20/16 10/21/16 Range/Units 14:34 03:33 WBC 7.9 7.0 (4.3-11.1) K/mcL Hgb 8.9 L 9.3 L (12.9-16.9) g/dL Hct 27.8 L 28.6 L (37.5-50.1) % Plt Count 168 190 (140-400) K/mcL Neutrophils # 4.9 4.2 (1.6-8.9) K/mcL BMP 10/21/16 03:33 Sodium 139 Potassium 3.4 L Chloride 99 Carbon Dioxide 32 H BUN 51 H Creatinine 1.72 H Glucose 421 H Calcium 9.1 - ABG Interpretation ABG results: ABG ABG pH 7.37 pH Units (7.32-7.45) 10/16/16 01:12 ABG pCO2 52 mmHg (35-45) H 10/16/16 01:12 ABG pO2 90 mmHg (85-104) 10/16/16 01:12 ABG O2 Saturation 97 % (95-98) 10/16/16 01:12 Consult Discharge Plan - Plan Referrals: NO,PCP [Primary Care Provider] -
[2016-10-21] MEDS: Insulin DETEMIR 100 UNIT/ML X5UNITS SQ SCH (22:19)
[2016-10-22] MEDS: Piperacillin/Tazobactam 3.375 GM in D5% in Water (Mini-Bag+) 100 ML IVPB SCH ×3 (00:06→16:41)
[2016-10-22] MEDS: hydrALAZINE 25 MG TABLET PO SCH ×3 (05:23→21:47)
[2016-10-22] MEDS: Pantoprazole 40 MG VIAL IVP SCH ×2 (05:24→16:42)
[2016-10-22] MEDS: *HR* Heparin 5,000 UNIT/ML VIAL SQ SCH ×2 (05:24→16:42)
[2016-10-22 05:41] LABS: Immature Platelets 10.2 % (1.1-6.1); Mean Corpuscular HGB Conc 32.1 g/dL (31.6-35.5); Mean Corpuscular Volume 96.6 fL (83.0-100.0); Mean Platelet Volume 12.2 fL (9.4-12.4); Platelet Count 231 K/mcL (140-400); Red Cell Distribution Width 14.4 % (11.5-14.5)
[2016-10-22 05:51] LABS: Albumin 2.2 g/dL (3.5-5.0); Albumin/Globulin Ratio 0.5 (1.1-2.2); Bilirubin,Total 0.6 mg/dL (0.2-1.2); Calcium 9.3 mg/dL (8.6-10.8); Globulin 4.4 g/dL (2.4-3.5); Total Protein 6.6 g/dL (6.0-8.3)
[2016-10-22 06:15] LABS: Basophils # 0.2 K/mcL (0.0-0.2); Eosinophils # 0.5 K/mcL (0.0-0.6); Platelet Estimate Normal (Normal); Reactive Lymphocytes Present (Not Present)
[2016-10-22 06:16] LABS: Band Neutrophils % 7.3 % (0-4); Basophils % 1.8 %; Eosinophils % 5.5 %; Lymphocytes # 1.2 K/mcL (0.6-4.6); Lymphocytes % 14.5 %; Monocytes # 0.6 K/mcL (0.0-1.3); Monocytes % 7.3 %; Neutrophils # 5.8 K/mcL (1.6-8.9); Segmented Neutrophils % 63.6 %
[2016-10-22] MEDS: Furosemide 40 MG/4 ML VIAL IVP SCH ×2 (07:57→16:42)
[2016-10-22] MEDS: Insulin DETEMIR 100 UNIT/ML X5UNITS SQ SCH ×2 (07:58→21:50)
[2016-10-22] MEDS: Ferrous Sulfate Oral Soln 300 MG/5 ML UDC PO SCH ×2 (07:59→16:42)
[2016-10-22] MEDS: Aspirin Enteric Coated 81 MG Tablet PO SCH (08:00)
[2016-10-22] MEDS: Insulin LISPRO 300 UNITS/3 ML VIAL SQ SCH ×4 (08:00→21:51)
--- NOTE | 2016-10-22 12:14 | Internal Med Progress Note ---
Date of Encounter: 10/22/16 Time of Encounter: 12:11 - Assessment and plan (1) Acute respiratory failure Current Visit: Yes Status: Acute Assessment and plan: - With increased need of oxygen on admission. - Likely secondary to aspiration pneumonia and diastolic CHF exacerbation in the setting of anemia. - Continue IV Zosyn for aspiration pneumonia. - Continue diuresis with Lasix for CHF. - Continue supplemental oxygen and as needed intermittent BiPAP. - Continue to monitor. 10/21/2016 Patient is feeling much better as compared to yesterday. We will continue IV antibiotics. We will continue diuresis We will recheck labs tomorrow morning 10/22/2016 Feels much better as compared to yesterday. Continue IV antibiotics will continue IV diuresis Patient is awaiting for placement in an ECF. Qualifiers: Respiratory failure complication: hypoxia Qualified Code(s): J96.01 - Acute respiratory failure with hypoxia (2) Anemia Current Visit: Yes Status: Acute Assessment and plan: - Hgb 9.3 on admission but continued to drop to as low as 7.5 on 10/17/16. - Acute blood loss anemia likely secondary to GI bleed as stool occult test positive. - Status post 1 unit of pRBC on 10/17/16 - Hgb dropped from 9.6 yesterday to 8.9 this morning. - Will repeat H&H this afternoon. - Continue to monitor and give pRBC transfusion if Hgb < 7. 10/21/2016 Hemoglobin this morning is stable as compared to yesterday. there is no further hemoglobin drop. There is no occult and farhat bleeding noted. Qualifiers: Anemia type: unspecified type Qualified Code(s): D64.9 - Anemia, unspecified (3) GI bleed Current Visit: Yes Status: Acute Assessment and plan: - Hgb dropped to as low as 7.5 on 10/17/16. - Status post 1 unit of pRBC on 10/17/16 - Stool occult test positive. - Hgb dropped from 9.6 yesterday to 8.9 this morning. - Continue Protonix IV BID. - GI consulted and plan to have colonoscopy on 10/24. Qualifiers: GI bleed type/associated pathology: unspecified gastrointestinal hemorrhage type Qualified Code(s): K92.2 - Gastrointestinal hemorrhage, unspecified (4) Encephalopathy acute Current Visit: Yes Status: Resolved Assessment and plan: - Unknown etiology. Differentials include serotonin syndrome, metabolic encephalopathy, delirium, progression of dementia. - CT head found no acute intracranial abnormality. - CSF gram stain and culture don't indicate infection. - Neurology on board and doubted this is a primary neurologic etiology - Significantly improved as patient remains more awake today but still not back to his baseline per family. - Continue to monitor. (5) Aspiration pneumonia Current Visit: Yes Status: Acute Assessment and plan: - CXR suggests of pneumonia and pulmonary edema. - Continue IV Zosyn (since 10/15 night) and plan to finish total 7-day course ( expected time to finish: 10/22 night) - Speech therapy and dietary supervisor on board. - Was on tube feeding but patient pulled his NG tube out. - Currently on honey thickened liquid diet. May advance diet if tolerated. Qualifiers: Aspiration pneumonia type: due to regurgitated food Laterality: bilateral Lung location: upper lobe of lung Qualified Code(s): J69.0 - Pneumonitis due to inhalation of food and vomit (6) Serotonin syndrome Current Visit: Yes Status: Suspected Assessment and plan: - Concern of serotonin syndrome given high fever, rigidity and ocular clonus and patient was on Zoloft, valproic acid, [facility]. - Cautious to resume those medications upon discharge. - Subjective Interval history: Patient seen and examined. Comfortably lying on a bed. Family at bedside. 10/22/2016 Seen and examined. Chart reviewed. Patient is comfortably lying in bed. Patient denies any chest pain, shortness of breath, abdominal pain, dizziness or diarrhea. - Constitutional Vitals: Temp Pulse Resp BP Pulse Ox 97.9 F 89 16 174/94 100 10/22/16 11:40 10/22/16 11:40 10/22/16 11:40 10/22/16 11:40 10/22/16 11:40 General appearance: Present: cooperative, A&O X 2 (Person and part of place ( "hospital").), no acute distress - Head Head exam: Present: atraumatic, normocephalic - Eye Eye exam: Present: PERRL, conjuntiva pink, sclera anicteric Pupils: Present: PERRL - Neck Neck exam general surgery: Present: supple, trachea midline. Absent: lymphadenopathy - Respiratory Respiratory exam: Present: CTAB. Absent: accessory muscle use, rales, rhonchi, wheezes - Cardiovascular Cardiovascular exam: Present: RRR, +S1, +S2. Absent: diastolic murmur, gallop, rubs, systolic murmur - GI/Abdominal GI/Abdominal exam: Present: normal bowel sounds, soft, no peritoneal signs. Absent: distended, tenderness - Extremities Exam Extremities exam: Present: warm, radial pulses palpable and symetrical. Absent : calf tenderness, cyanotic, pedal edema - Neurological Exam Neurological exam: Present: CN II-XII intact, oriented X3, no focal deficits. Absent: pronater drift, facial droop, speech deficit - Skin Skin exam: Present: dry, intact Internal Medicine: Result - Labs CBC & Chem 7: 10/22/16 05:08 10/22/16 05:08 Labs: Short CBC 10/22/16 Range/Units 05:08 WBC 8.2 (4.3-11.1) K/mcL Hgb 9.0 L (12.9-16.9) g/dL Hct 28.0 L (37.5-50.1) % Plt Count 231 (140-400) K/mcL Neutrophils # 5.8 (1.6-8.9) K/mcL BMP 10/22/16 05:08 Sodium 142 Potassium 3.0 L Chloride 99 Carbon Dioxide 32 H BUN 52 H Creatinine 1.73 H Glucose 256 H Calcium 9.3 Liver Function 10/22/16 Range/Units 05:08 Total Bilirubin 0.6 (0.2-1.2) mg/dL AST 35 H (5-34) Units/L ALT 33 (0-55) Units/L Alkaline Phosphatase 65 (38-126) Units/L Albumin 2.2 L (3.5-5.0) g/dL - ABG Interpretation ABG results: ABG ABG pH 7.37 pH Units (7.32-7.45) 10/16/16 01:12 ABG pCO2 52 mmHg (35-45) H 10/16/16 01:12 ABG pO2 90 mmHg (85-104) 10/16/16 01:12 ABG O2 Saturation 97 % (95-98) 10/16/16 01:12 Consult Discharge Plan - Plan Referrals: NO,PCP [Primary Care Provider] -
[2016-10-23] MEDS: Piperacillin/Tazobactam 3.375 GM in D5% in Water (Mini-Bag+) 100 ML IVPB SCH ×3 (01:10→17:21)
[2016-10-23] MEDS: hydrALAZINE 25 MG TABLET PO SCH ×3 (05:28→21:16)
[2016-10-23] MEDS: *HR* Heparin 5,000 UNIT/ML VIAL SQ SCH ×2 (05:28→17:10)
[2016-10-23] MEDS: Pantoprazole 40 MG VIAL IVP SCH ×2 (05:29→17:06)
[2016-10-23 06:09] LABS: Hematocrit 27.5 % (37.5-50.1); Hemoglobin 8.8 g/dL (12.9-16.9); Mean Corpuscular Hemoglobin 31.1 pg (28.0-33.3); Mean Corpuscular Volume 97.2 fL (83.0-100.0); Mean Platelet Volume 11.9 fL (9.4-12.4); Monocytes # 0.6 K/mcL (0.0-1.3); Platelet Count 242 K/mcL (140-400); Red Blood Count 2.83 M/mcL (4.19-5.50); Red Cell Distribution Width 14.5 % (11.5-14.5)
[2016-10-23 06:32] LABS: Albumin 2.2 g/dL (3.5-5.0); Albumin/Globulin Ratio 0.5 (1.1-2.2); Bilirubin,Total 0.6 mg/dL (0.2-1.2); Calcium 9.2 mg/dL (8.6-10.8); Eosinophils # 0.2 K/mcL (0.0-0.6); Globulin 4.1 g/dL (2.4-3.5); Lymphocytes # 1.2 K/mcL (0.6-4.6); Neutrophils # 5.5 K/mcL (1.6-8.9); Platelet Estimate Normal (Normal); Total Protein 6.3 g/dL (6.0-8.3); Toxic Granulation Present (Not Present)
[2016-10-23 06:33] LABS: Large Platelets Present (Not Present); Reactive Lymphocytes Present (Not Present)
[2016-10-23 08:09] LABS: Magnesium 1.7 mg/dL (1.6-2.6)
[2016-10-23] MEDS: Insulin LISPRO 300 UNITS/3 ML VIAL SQ SCH ×4 (09:11→21:07)
[2016-10-23] MEDS: Insulin DETEMIR 100 UNIT/ML X5UNITS SQ SCH ×2 (09:12→21:06)
[2016-10-23] MEDS: Aspirin Enteric Coated 81 MG Tablet PO SCH (09:13)
[2016-10-23] MEDS: Ferrous Sulfate Oral Soln 300 MG/5 ML UDC PO SCH ×2 (09:14→17:16)
[2016-10-23] MEDS: Furosemide 40 MG/4 ML VIAL IVP SCH ×2 (09:17→17:14)
[2016-10-23] MEDS ORDERED: Potassium Chloride 40 MEQ, Lidocaine 1% 2 ML in D5% in Water 500 ML IVPB ONE (09:51)
--- NOTE | 2016-10-23 10:50 | Internal Med Progress Note ---
<Tor Acevedo - Last Filed: 10/23/16 14:54> Date of Encounter: 10/23/16 Time of Encounter: 10:00 - Assessment and plan (1) Acute respiratory failure Current Visit: Yes Status: Acute Assessment and plan: - With increased need of oxygen on admission. - Likely secondary to aspiration pneumonia and diastolic CHF exacerbation in the setting of anemia. - Clinically stable as patient is able to maintain good saturation on 3L NC or even on room air. - Continue IV Zosyn for aspiration pneumonia. - Continue diuresis with Lasix for CHF. - Continue supplemental oxygen and as needed intermittent BiPAP. - Continue to monitor. - Patient is awaiting for placement in an ECF and possible discharge tomorrow. Qualifiers: Respiratory failure complication: hypoxia Qualified Code(s): J96.01 - Acute respiratory failure with hypoxia (2) Anemia Current Visit: Yes Status: Acute Assessment and plan: - Hgb 9.3 on admission but continued to drop to as low as 7.5 on 10/17/16. - Acute blood loss anemia likely secondary to GI bleed as stool occult test positive. - Status post 1 unit of pRBC transfusion on 10/17/16 - Hgb remains relative stable at 8.8 today. - No sign of active bleeding at this time. - Continue to monitor and give pRBC transfusion if Hgb < 7. Qualifiers: Anemia type: unspecified type Qualified Code(s): D64.9 - Anemia, unspecified (3) GI bleed Current Visit: Yes Status: Acute Assessment and plan: - Hgb dropped to as low as 7.5 on 10/17/16. - Status post 1 unit of pRBC transfusion on 10/17/16 - Stool occult test positive on 10/17/16 - Hgb remains relative stable at 8.8 today. - Continue Protonix IV BID. - No active hematochezia or melena at this time. - GI consulted and recommends outpatient scoping if needed. Qualifiers: GI bleed type/associated pathology: unspecified gastrointestinal hemorrhage type Qualified Code(s): K92.2 - Gastrointestinal hemorrhage, unspecified (4) Encephalopathy acute Current Visit: Yes Status: Resolved Assessment and plan: - Unknown etiology. Differentials include serotonin syndrome, metabolic encephalopathy, delirium, progression of dementia. - CT head found no acute intracranial abnormality. - CSF gram stain and culture don't indicate infection. - Neurology on board and doubted this is a primary neurologic etiology - Significantly improved as patient remains more awake and able to make jokes. - Continue to monitor. (5) Aspiration pneumonia Current Visit: Yes Status: Acute Assessment and plan: - CXR suggests of pneumonia and pulmonary edema. - Continue IV Zosyn (since 10/15 night). - Speech therapy and database operator on board. - Was on tube feeding but patient pulled his NG tube out. - Currently on pureed diet. May advance diet if tolerated. Qualifiers: Aspiration pneumonia type: due to regurgitated food Laterality: bilateral Lung location: upper lobe of lung Qualified Code(s): J69.0 - Pneumonitis due to inhalation of food and vomit (6) Serotonin syndrome Current Visit: Yes Status: Suspected Assessment and plan: - Concern of serotonin syndrome given high fever, rigidity and ocular clonus and patient was on Zoloft, valproic acid, buspar at skilled nursing. - Cautious to resume those medications upon discharge. (7) Acute renal failure superimposed on chronic kidney disease Current Visit: No Status: Acute Assessment and plan: - SCr as high as 2.39 on 10/17/16 compared to his baseline ~ 1.7. - Likely secondary hypoperfusion related to septic shock and anemia. - Continue to improve as SCr 1.59 today. - Avoid nephrotoxin. - Continue to monitor renal function and electrolytes. (8) Dementia Current Visit: Yes Status: Chronic Assessment and plan: - History of dementia. - Current mental status can be part of dementia progression. - Continue memantine and donepezil. Qualifiers: Dementia type: unspecified type Dementia behavioral disturbance: without behavioral disturbance Qualified Code(s): F03.90 - Unspecified dementia without behavioral disturbance (9) Septic shock Current Visit: Yes Status: Resolved Assessment and plan: - BP as low as 84/45 on 10/16/16 requiring vasopressor in ICU. - Likely secondary to aspiration pneumonia. - Resolved as BP improves without the need of vasopressor. (10) Diastolic heart failure Current Visit: Yes Status: Acute Assessment and plan: - Echo on 10/16/16 showed LVEF 60% with moderate diastolic LV dysfunction. No significant valvular abnormality. - Negative 4.8 L so far. - Continue diuresis with Lasix. Qualifiers: Heart failure chronicity: acute on chronic Qualified Code(s): I50.33 - Acute on chronic diastolic (congestive) heart failure (11) Diabetes mellitus Current Visit: Yes Status: Chronic Assessment and plan: - Continue basal and sliding scale insulin with routine glucose monitoring. 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 - No on anticoagulation given history of GI bleed. Qualifiers: Atrial fibrillation type: paroxysmal Qualified Code(s): I48.0 - Paroxysmal atrial fibrillation - Subjective Interval history: No significant event noted overnight. Patient was seen and examined this morning. Patient is awake but orient to person only. Patient denies any pain or shortness of breath. - Constitutional Vitals: Temp Pulse Resp BP Pulse Ox 98.2 F 88 16 152/67 93 10/23/16 10:38 10/23/16 10:38 10/23/16 10:38 10/23/16 10:38 10/23/16 10:38 General appearance: Present: cooperative, A&O X 1 (Patient states he is in "madhouse" while asking where he is. ), no acute distress - Head Head exam: Present: atraumatic, normocephalic - Eye Eye exam: Present: EOMI, PERRL, conjuntiva pink, sclera anicteric - Neck Neck exam general surgery: Present: supple, trachea midline. Absent: lymphadenopathy - Respiratory Respiratory exam: Present: decreased breath sounds. Absent: accessory muscle use, rales, rhonchi, wheezes - Cardiovascular Cardiovascular exam: Present: RRR, +S1, +S2. Absent: diastolic murmur, gallop, rubs, systolic murmur - GI/Abdominal GI/Abdominal exam: Present: normal bowel sounds, soft, no peritoneal signs. Absent: distended, tenderness - Extremities Exam Extremities exam: Present: warm, radial pulses palpable and symetrical. Absent : calf tenderness, cyanotic, pedal edema - Neurological Exam Neurological exam: Present: no focal deficits. Absent: pronater drift, facial droop, speech deficit - Skin Skin exam: Present: dry, warm Internal Medicine: Result - Labs CBC & Chem 7: 05/29/17 05:21 10/23/16 05:21 Labs: Short CBC 10/23/16 Range/Units 05:21 WBC 7.7 (4.3-11.1) K/mcL Hgb 8.8 L (12.9-16.9) g/dL Hct 27.5 L (37.5-50.1) % Plt Count 242 (140-400) K/mcL Neutrophils # 5.5 (1.6-8.9) K/mcL BMP 10/23/16 05:21 Sodium 143 Potassium 3.0 L Chloride 99 Carbon Dioxide 33 H BUN 40 H D Creatinine 1.59 H Glucose 196 H Calcium 9.2 Liver Function 10/23/16 Range/Units 05:21 Total Bilirubin 0.6 (0.2-1.2) mg/dL AST 35 H (5-34) Units/L ALT 31 (0-55) Units/L Alkaline Phosphatase 61 (38-126) Units/L Albumin 2.2 L (3.5-5.0) g/dL - ABG Interpretation ABG results: ABG ABG pH 7.37 pH Units (7.32-7.45) 10/16/16 01:12 ABG pCO2 52 mmHg (35-45) H 10/16/16 01:12 ABG pO2 90 mmHg (85-104) 10/16/16 01:12 ABG O2 Saturation 97 % (95-98) 10/16/16 01:12 Consult Discharge Plan - Plan Referrals: NO,PCP [Primary Care Provider] - <Antwan Galvez P - Last Filed: 10/23/16 16:53> Date of Encounter: 10/23/16 - Assessment and plan (1) Acute respiratory failure Current Visit: Yes Status: Acute Qualifiers: Respiratory failure complication: hypoxia Qualified Code(s): J96.01 - Acute respiratory failure with hypoxia (2) Anemia Current Visit: Yes Status: Acute Qualifiers: Anemia type: unspecified type Qualified Code(s): D64.9 - Anemia, unspecified (3) GI bleed Current Visit: Yes Status: Acute Qualifiers: GI bleed type/associated pathology: unspecified gastrointestinal hemorrhage type Qualified Code(s): K92.2 - Gastrointestinal hemorrhage, unspecified (4) Encephalopathy acute Current Visit: Yes Status: Resolved (5) Aspiration pneumonia Current Visit: Yes Status: Acute Qualifiers: Aspiration pneumonia type: due to regurgitated food Laterality: bilateral Lung location: upper lobe of lung Qualified Code(s): J69.0 - Pneumonitis due to inhalation of food and vomit (6) Serotonin syndrome Current Visit: Yes Status: Suspected - Constitutional Vitals: Temp Pulse Resp BP Pulse Ox 98.2 F 81 16 148/66 93 10/23/16 15:34 10/23/16 15:34 10/23/16 15:34 10/23/16 15:34 10/23/16 15:34 Internal Medicine: Result - Labs CBC & Chem 7: 10/23/16 05:21 10/23/16 05:21 Labs: Short CBC 10/23/16 Range/Units 05:21 WBC 7.7 (4.3-11.1) K/mcL Hgb 8.8 L (12.9-16.9) g/dL Hct 27.5 L (37.5-50.1) % Plt Count 242 (140-400) K/mcL Neutrophils # 5.5 (1.6-8.9) K/mcL BMP 10/23/16 05:21 Sodium 143 Potassium 3.0 L Chloride 99 Carbon Dioxide 33 H BUN 40 H D Creatinine 1.59 H Glucose 196 H Calcium 9.2 Liver Function 10/23/16 Range/Units 05:21 Total Bilirubin 0.6 (0.2-1.2) mg/dL AST 35 H (5-34) Units/L ALT 31 (0-55) Units/L Alkaline Phosphatase 61 (38-126) Units/L Albumin 2.2 L (3.5-5.0) g/dL - ABG Interpretation ABG results: ABG ABG pH 7.37 pH Units (7.32-7.45) 10/16/16 01:12 ABG pCO2 52 mmHg (35-45) H 10/16/16 01:12 ABG pO2 90 mmHg (85-104) 10/16/16 01:12 ABG O2 Saturation 97 % (95-98) 10/16/16 01:12 - Attending Attestation I examined this patient and my medical decision-making was reviewed with the CRANE RIGGER/PA/Advanced Practice Nurse/Resident Physician. I agree with the documented findings, disposition and treatment plan as described except to the extent set forth below.
[2016-10-24] MEDS: Piperacillin/Tazobactam 3.375 GM in D5% in Water (Mini-Bag+) 100 ML IVPB SCH ×3 (00:48→17:23)
[2016-10-24 05:13] LABS: Basophils # 0.1 K/mcL (0.0-0.2); Basophils % 0.6 %; Eosinophils # 0.4 K/mcL (0.0-0.6); Eosinophils % 4.4 %; Hematocrit 29.9 % (37.5-50.1); Hemoglobin 9.6 g/dL (12.9-16.9); Immature Granulocytes % 1.5 % (0-4); Immature Platelets 9.1 % (1.1-6.1); Lymphocytes # 1.5 K/mcL (0.6-4.6); Lymphocytes % 16.3 %; Mean Corpuscular HGB Conc 32.1 g/dL (31.6-35.5); Mean Corpuscular Hemoglobin 31.3 pg (28.0-33.3); Mean Corpuscular Volume 97.4 fL (83.0-100.0); Mean Platelet Volume 11.7 fL (9.4-12.4); Monocytes # 0.6 K/mcL (0.0-1.3); Monocytes % 6.5 %; Neutrophils # 6.4 K/mcL (1.6-8.9); Platelet Count 304 K/mcL (140-400); Red Blood Count 3.07 M/mcL (4.19-5.50); Red Cell Distribution Width 14.5 % (11.5-14.5); Segmented Neutrophils % 70.7 %
[2016-10-24 05:38] LABS: Calcium 9.3 mg/dL (8.6-10.8); Platelet Estimate Normal (Normal); Potassium 3.8 mEq/L (3.5-4.5)
[2016-10-24] MEDS: Pantoprazole 40 MG VIAL IVP SCH ×2 (06:05→17:23)
[2016-10-24] MEDS: hydrALAZINE 25 MG TABLET PO SCH ×3 (06:08→20:52)
[2016-10-24] MEDS: *HR* Heparin 5,000 UNIT/ML VIAL SQ SCH ×2 (06:10→17:53)
[2016-10-24] MEDS: Furosemide 40 MG/4 ML VIAL IVP SCH ×2 (09:59→17:23)
[2016-10-24] MEDS: Aspirin Enteric Coated 81 MG Tablet PO SCH (10:00)
[2016-10-24] MEDS: Ferrous Sulfate Oral Soln 300 MG/5 ML UDC PO SCH ×2 (10:00→17:23)
[2016-10-24] MEDS: Insulin LISPRO 300 UNITS/3 ML VIAL SQ SCH ×4 (10:00→22:19)
[2016-10-24] MEDS: Insulin DETEMIR 100 UNIT/ML X5UNITS SQ SCH (10:03)
[2016-10-24] MEDS ORDERED: Polyethylene Glycol 3350 255 GM POWDER PO ONE (17:00)
--- NOTE | 2016-10-24 17:00 | Internal Med Progress Note ---
<Brigido Eden - Last Filed: 10/24/16 17:13> Date of Encounter: 10/24/16 Time of Encounter: 16:57 - Assessment and plan (1) GI bleed Current Visit: Yes Status: Acute Assessment and plan: Stool occult test positive -hgb dropped to 7.5 and patient had unit of P Piercey transfused. -No active hematochezia or melena. -Hemoglobin stable at 9-9.6. -Patient on clear liquid diet and will undergo colonoscopy tomorrow. -Nothing by mouth midnight. Qualifiers: GI bleed type/associated pathology: unspecified gastrointestinal hemorrhage type Qualified Code(s): K92.2 - Gastrointestinal hemorrhage, unspecified (2) Encephalopathy acute Current Visit: Yes Status: Resolved Assessment and plan: Insetting of serotonin syndrome, metabolic encephalopathy, delirium, progression of dementia. - CT head found no acute intracranial abnormality. - CSF gram stain and culture don't indicate infection. - Neurology on board and doubted this is a primary neurologic etiology - Significantly improved as patient remains more awake and able to make jokes. - Continue to monitor. (3) Serotonin syndrome Current Visit: Yes Status: Suspected Assessment and plan: Patient had high fever, rigidity and ocular clonus and patient was on Zoloft, valproic acid, buspar at assisted. -This was treated with cyproheptadine. -Patient is afebrile, awake alert, without clonus. -patient will not be resumed on zoloft, valproic acid, and buspar (4) Acute respiratory failure Current Visit: Yes Status: Acute Assessment and plan: With increased need of oxygen on admission. - Likely secondary to aspiration pneumonia and diastolic CHF exacerbation in the setting of anemia. -Clinically stable as patient is able to maintain good saturation on 3L NC which is what he uses outpatient. - Continue IV Zosyn for aspiration pneumonia for 14 days (day 10) - Continue diuresis with Lasix for CHF. - Continue supplemental oxygen and as needed intermittent BiPAP. - Continue to monitor. - Patient is awaiting for placement in an ECF and possible discharge tomorrow. Qualifiers: Respiratory failure complication: hypoxia Qualified Code(s): J96.01 - Acute respiratory failure with hypoxia (5) Diastolic heart failure Current Visit: Yes Status: Acute Assessment and plan: - Echo on 10/16/16 showed LVEF 60% with moderate diastolic LV dysfunction. No significant valvular abnormality. - Negative 4.8 L so far. - Continue diuresis with Lasix. Qualifiers: Heart failure chronicity: acute on chronic Qualified Code(s): I50.33 - Acute on chronic diastolic (congestive) heart failure (6) Aspiration pneumonia Current Visit: Yes Status: Acute Assessment and plan: - CXR suggests of pneumonia and pulmonary edema. - Continue IV Zosyn day 10. -Continue supplemental oxygen. - Speech therapy and summer clerk on board -NPO for colonoscopy tomorrow. Qualifiers: Aspiration pneumonia type: due to regurgitated food Laterality: bilateral Lung location: upper lobe of lung Qualified Code(s): J69.0 - Pneumonitis due to inhalation of food and vomit (7) Atrial fibrillation Current Visit: Yes Status: Chronic Assessment and plan: - Currently rate controlled. - No on anticoagulation given history of GI bleed. Qualifiers: Atrial fibrillation type: paroxysmal Qualified Code(s): I48.0 - Paroxysmal atrial fibrillation (8) Dementia Current Visit: Yes Status: Chronic Assessment and plan: - History of dementia. - Current mental status can be part of dementia progression. - Continue memantine and donepezil. Qualifiers: Dementia type: unspecified type Dementia behavioral disturbance: without behavioral disturbance Qualified Code(s): F03.90 - Unspecified dementia without behavioral disturbance (9) Diabetes mellitus Current Visit: Yes Status: Chronic Assessment and plan: - uncontrolled POC glucose - Increase basal insulin to 25 twice a day. 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 continue amlodipine to 10mg daily. continue lasix and hydralazine. Qualifiers: Hypertension type: essential hypertension Qualified Code(s): I10 - Essential (primary) hypertension (11) Acute renal failure superimposed on chronic kidney disease Current Visit: Yes Status: Resolved Assessment and plan: - resolved. -SCr as high as 2.39 on 10/17/16 compared to his baseline ~ 1.7. - Likely secondary hypoperfusion related to septic shock and anemia. - Continue to improve as SCr 1.59 today. - Avoid nephrotoxin. - Continue to monitor renal function and electrolytes. (12) Septic shock Current Visit: Yes Status: Resolved Assessment and plan: - BP as low as 84/45 on 10/16/16 requiring vasopressor in ICU. - Likely secondary to aspiration pneumonia. - Resolved as BP improves without the need of vasopressor. - Subjective Interval history: Patient has no new complaints this morning. He is alert and oriented to self only. No acute events overnight. - Constitutional Vitals: Temp Pulse Resp BP Pulse Ox 97.9 F 73 16 143/73 98 10/24/16 14:52 10/24/16 14:52 10/24/16 14:52 10/24/16 14:52 10/24/16 14:52 General appearance: Present: cooperative, A&O X 1 (Oriented to self only not to time or place or situation), no acute distress - Respiratory Respiratory exam: Present: CTAB. Absent: accessory muscle use, rales, rhonchi, wheezes - Cardiovascular Cardiovascular exam: Present: RRR, +S1, +S2. Absent: diastolic murmur, gallop, rubs, systolic murmur - GI/Abdominal GI/Abdominal exam: Present: normal bowel sounds, soft, no peritoneal signs. Absent: distended, tenderness - Extremities Exam Extremities exam: Present: warm, radial pulses palpable and symetrical. Absent : calf tenderness, cyanotic, pedal edema Internal Medicine: Result - Labs CBC & Chem 7: 10/24/16 04:46 10/24/16 04:46 Labs: Short CBC 10/24/16 Range/Units 04:46 WBC 9.1 (4.3-11.1) K/mcL Hgb 9.6 L (12.9-16.9) g/dL Hct 29.9 L (37.5-50.1) % Plt Count 304 (140-400) K/mcL Neutrophils # 6.4 (1.6-8.9) K/mcL BMP 10/24/16 04:46 Sodium 142 Potassium 3.8 Chloride 100 Carbon Dioxide 32 H BUN 34 H Creatinine 1.61 H Glucose 164 H Calcium 9.3 - ABG Interpretation ABG results: ABG ABG pH 7.37 pH Units (7.32-7.45) 10/16/16 01:12 ABG pCO2 52 mmHg (35-45) H 10/16/16 01:12 ABG pO2 90 mmHg (85-104) 10/16/16 01:12 ABG O2 Saturation 97 % (95-98) 10/16/16 01:12 Consult Discharge Plan - Plan Referrals: NO,PCP [Primary Care Provider] - <Antwan Galvez P - Last Filed: 10/24/16 17:19> Date of Encounter: 10/24/16 - Assessment and plan (1) Acute respiratory failure Current Visit: Yes Status: Acute Qualifiers: Respiratory failure complication: hypoxia Qualified Code(s): J96.01 - Acute respiratory failure with hypoxia (2) Anemia Current Visit: Yes Status: Acute Qualifiers: Anemia type: unspecified type Qualified Code(s): D64.9 - Anemia, unspecified (3) GI bleed Current Visit: Yes Status: Acute Qualifiers: GI bleed type/associated pathology: unspecified gastrointestinal hemorrhage type Qualified Code(s): K92.2 - Gastrointestinal hemorrhage, unspecified (4) Encephalopathy acute Current Visit: Yes Status: Resolved (5) Aspiration pneumonia Current Visit: Yes Status: Acute Qualifiers: Aspiration pneumonia type: due to regurgitated food Laterality: bilateral Lung location: upper lobe of lung Qualified Code(s): J69.0 - Pneumonitis due to inhalation of food and vomit (6) Serotonin syndrome Current Visit: Yes Status: Suspected - Constitutional Vitals: Temp Pulse Resp BP Pulse Ox 97.9 F 73 16 143/73 98 10/24/16 14:52 10/24/16 14:52 10/24/16 14:52 10/24/16 14:52 10/24/16 14:52 Internal Medicine: Result - Labs CBC & Chem 7: 10/24/16 04:46 10/24/16 04:46 Labs: Short CBC 10/24/16 Range/Units 04:46 WBC 9.1 (4.3-11.1) K/mcL Hgb 9.6 L (12.9-16.9) g/dL Hct 29.9 L (37.5-50.1) % Plt Count 304 (140-400) K/mcL Neutrophils # 6.4 (1.6-8.9) K/mcL BMP 10/24/16 04:46 Sodium 142 Potassium 3.8 Chloride 100 Carbon Dioxide 32 H BUN 34 H Creatinine 1.61 H Glucose 164 H Calcium 9.3 - ABG Interpretation ABG results: ABG ABG pH 7.37 pH Units (7.32-7.45) 10/16/16 01:12 ABG pCO2 52 mmHg (35-45) H 10/16/16 01:12 ABG pO2 90 mmHg (85-104) 10/16/16 01:12 ABG O2 Saturation 97 % (95-98) 10/16/16 01:12 - Attending Attestation I examined this patient and my medical decision-making was reviewed with the ONBOARDING SPECIALIST/PA/Advanced Practice Nurse/Resident Physician. I agree with the documented findings, disposition and treatment plan as described except to the extent set forth below.
[2016-10-25] MEDS: Piperacillin/Tazobactam 3.375 GM in D5% in Water (Mini-Bag+) 100 ML IVPB SCH ×3 (00:41→17:58)
[2016-10-25] MEDS: Insulin DETEMIR 100 UNIT/ML X5UNITS SQ SCH ×3 (00:41→23:04)
[2016-10-25 03:59] LABS: Basophils # 0.1 K/mcL (0.0-0.2); Basophils % 0.5 %; Eosinophils # 0.3 K/mcL (0.0-0.6); Eosinophils % 3.7 %; Hematocrit 29.1 % (37.5-50.1); Hemoglobin 9.6 g/dL (12.9-16.9); Immature Platelets 7.8 % (1.1-6.1); Lymphocytes # 1.3 K/mcL (0.6-4.6); Lymphocytes % 14.3 %; Mean Platelet Volume 11.8 fL (9.4-12.4); Monocytes # 0.6 K/mcL (0.0-1.3); Monocytes % 6.7 %; Neutrophils # 6.8 K/mcL (1.6-8.9); Platelet Count 323 K/mcL (140-400); Red Cell Distribution Width 14.4 % (11.5-14.5); Segmented Neutrophils % 73.8 %
[2016-10-25 04:41] LABS: Calcium 8.9 mg/dL (8.6-10.8); Potassium 3.1 mEq/L (3.5-4.5)
[2016-10-25] MEDS: *HR* Heparin 5,000 UNIT/ML VIAL SQ SCH ×2 (06:11→17:58)
[2016-10-25] MEDS: Pantoprazole 40 MG VIAL IVP SCH ×2 (06:11→17:58)
[2016-10-25] MEDS: hydrALAZINE 25 MG TABLET PO SCH ×3 (06:11→23:03)
[2016-10-25] MEDS: Insulin LISPRO 300 UNITS/3 ML VIAL SQ SCH ×4 (08:55→23:05)
[2016-10-25] MEDS: Ferrous Sulfate Oral Soln 300 MG/5 ML UDC PO SCH ×2 (09:03→17:58)
[2016-10-25] MEDS: Furosemide 40 MG/4 ML VIAL IVP SCH ×2 (09:03→17:58)
[2016-10-25] MEDS: Aspirin Enteric Coated 81 MG Tablet PO SCH (09:04)
[2016-10-25] MEDS: *HR* LORazepam 2 MG/ML VIAL IVP PRN (09:08)
[2016-10-25] MEDS ORDERED: *HR* Propofol 200 MG/20 ML VIAL IVP ONE (10:35)
--- NOTE | 2016-10-25 11:48 | Internal Med Progress Note ---
<Brigido Eden - Last Filed: 10/25/16 11:47> Date of Encounter: 10/25/16 - Assessment and plan (1) GI bleed Current Visit: Yes Status: Acute Qualifiers: GI bleed type/associated pathology: unspecified gastrointestinal hemorrhage type Qualified Code(s): K92.2 - Gastrointestinal hemorrhage, unspecified (2) Encephalopathy acute Current Visit: Yes Status: Resolved (3) Serotonin syndrome Current Visit: Yes Status: Suspected (4) Acute respiratory failure Current Visit: Yes Status: Acute Qualifiers: Respiratory failure complication: hypoxia Qualified Code(s): J96.01 - Acute respiratory failure with hypoxia (5) Diastolic heart failure Current Visit: Yes Status: Acute Qualifiers: Heart failure chronicity: acute on chronic Qualified Code(s): I50.33 - Acute on chronic diastolic (congestive) heart failure (6) Aspiration pneumonia Current Visit: Yes Status: Acute Qualifiers: Aspiration pneumonia type: due to regurgitated food Laterality: bilateral Lung location: upper lobe of lung Qualified Code(s): J69.0 - Pneumonitis due to inhalation of food and vomit (7) Atrial fibrillation Current Visit: Yes Status: Chronic Qualifiers: Atrial fibrillation type: paroxysmal Qualified Code(s): I48.0 - Paroxysmal atrial fibrillation (8) Dementia Current Visit: Yes Status: Chronic Qualifiers: Dementia type: unspecified type Dementia behavioral disturbance: without behavioral disturbance Qualified Code(s): F03.90 - Unspecified dementia without behavioral disturbance (9) Diabetes mellitus Current Visit: Yes Status: Chronic Qualifiers: Diabetes mellitus type: type 2 Diabetes mellitus complication status: without complication Diabetes mellitus [facility] insulin use: with jail use Qualified Code(s): E11.9 - Type 2 diabetes mellitus without complications ; Z79.4 - [facility] (current) use of insulin (10) Hypertension Current Visit: Yes Status: Resolved Qualifiers: Hypertension type: essential hypertension Qualified Code(s): I10 - Essential (primary) hypertension (11) Acute renal failure superimposed on chronic kidney disease Current Visit: Yes Status: Resolved (12) Septic shock Current Visit: Yes Status: Resolved - Subjective Interval history: Patient has no new complaints this morning. He is alert and oriented to self only. No acute events overnight. - Constitutional Vitals: Temp Pulse Resp BP Pulse Ox 98.0 F 57 16 152/78 96 10/25/16 08:02 10/25/16 08:02 10/25/16 08:02 10/25/16 08:02 10/25/16 08:02 General appearance: Present: cooperative, A&O X 1 (Oriented to self only not to time or place or situation), no acute distress Internal Medicine: Result - Labs CBC & Chem 7: 10/25/16 03:13 10/25/16 03:13 Labs: Short CBC 10/25/16 Range/Units 03:13 WBC 9.2 (4.3-11.1) K/mcL Hgb 9.6 L (12.9-16.9) g/dL Hct 29.1 L (37.5-50.1) % Plt Count 323 (140-400) K/mcL Neutrophils # 6.8 (1.6-8.9) K/mcL BMP 10/25/16 03:13 Sodium 141 Potassium 3.1 L Chloride 101 Carbon Dioxide 27 BUN 29 H Creatinine 1.60 H Glucose 211 H Calcium 8.9 - ABG Interpretation ABG results: ABG ABG pH 7.37 pH Units (7.32-7.45) 10/16/16 01:12 ABG pCO2 52 mmHg (35-45) H 10/16/16 01:12 ABG pO2 90 mmHg (85-104) 10/16/16 01:12 ABG O2 Saturation 97 % (95-98) 10/16/16 01:12 Consult Discharge Plan - Plan Referrals: NO,PCP [Primary Care Provider] - <Antwan Galvez P - Last Filed: 10/25/16 14:32> Date of Encounter: 10/25/16 - Assessment and plan (1) Acute respiratory failure Current Visit: Yes Status: Acute Qualifiers: Respiratory failure complication: hypoxia Qualified Code(s): J96.01 - Acute respiratory failure with hypoxia (2) Anemia Current Visit: Yes Status: Acute Qualifiers: Anemia type: unspecified type Qualified Code(s): D64.9 - Anemia, unspecified (3) GI bleed Current Visit: Yes Status: Acute Qualifiers: GI bleed type/associated pathology: unspecified gastrointestinal hemorrhage type Qualified Code(s): K92.2 - Gastrointestinal hemorrhage, unspecified (4) Encephalopathy acute Current Visit: Yes Status: Resolved (5) Aspiration pneumonia Current Visit: Yes Status: Acute Qualifiers: Aspiration pneumonia type: due to regurgitated food Laterality: bilateral Lung location: upper lobe of lung Qualified Code(s): J69.0 - Pneumonitis due to inhalation of food and vomit (6) Serotonin syndrome Current Visit: Yes Status: Suspected - Constitutional Vitals: Temp Pulse Resp BP Pulse Ox 97.4 F L 53 14 109/42 88 10/25/16 13:33 10/25/16 13:33 10/25/16 13:33 10/25/16 13:33 10/25/16 13:33 Internal Medicine: Result - Labs CBC & Chem 7: 10/25/16 03:13 10/25/16 03:13 Labs: Short CBC 10/25/16 Range/Units 03:13 WBC 9.2 (4.3-11.1) K/mcL Hgb 9.6 L (12.9-16.9) g/dL Hct 29.1 L (37.5-50.1) % Plt Count 323 (140-400) K/mcL Neutrophils # 6.8 (1.6-8.9) K/mcL BMP 10/25/16 03:13 Sodium 141 Potassium 3.1 L Chloride 101 Carbon Dioxide 27 BUN 29 H Creatinine 1.60 H Glucose 211 H Calcium 8.9 - ABG Interpretation ABG results: ABG ABG pH 7.37 pH Units (7.32-7.45) 10/16/16 01:12 ABG pCO2 52 mmHg (35-45) H 10/16/16 01:12 ABG pO2 90 mmHg (85-104) 10/16/16 01:12 ABG O2 Saturation 97 % (95-98) 10/16/16 01:12 - Attending Attestation I examined this patient and my medical decision-making was reviewed with the SHEET METAL LAYOUT WORKER/PA/Advanced Practice Nurse/Resident Physician. I agree with the documented findings, disposition and treatment plan as described except to the extent set forth below. awaiting GI input
--- NOTE | 2016-10-25 12:58 | Electrocardiograph Report ---
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
--- NOTE | 2016-10-25 13:02 | Electrocardiograph Report ---
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
--- NOTE | 2016-10-25 13:34 | Anesthesia Evaluation PreOp ---
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 History: Other (dementia with acute encephalopathy) Other Medical History: Renal (Stage 3 CKD with acute kidney injury), Diabetes Type II, Other (anemia) Alcohol Use: none Drug use: none Medications and Allergies Acetaminophen [Tylenol Arthritis] 650 mg PO Q6H PRN 08/09/16 [History] Aspirin Enteric Coated [Aspirin EC] 81 mg PO DAILY 08/09/16 [History] Atorvastatin [Lipitor] 40 mg PO HS 08/09/16 [History] Divalproex (24 HR) [Depakote ER (24 HR)] 1,250 mg PO DAILY 08/09/16 [History] Donepezil HCl [Aricept] 10 mg PO DAILY 08/09/16 [History] Furosemide [Lasix] 60 mg PO DAILY 08/09/16 [History] Glucagon,Human Recombinant [Glucagon Emergency Kit] 1 mg IM Q15M PRN 08/09/16 [ History] HYDROcodone/Acet 5/325 mg [[place] 5-325 mg] 1 tab PO Q6H PRN 08/09/16 [History] Insulin ASPART [NovoLOG] 2 - 10 unit SQ ACHS 08/09/16 [History] Memantine HCl 10 mg PO BID 08/09/16 [History] Sertraline [Zoloft] 150 mg PO DAILY 08/09/16 [History] Tamsulosin [Flomax] 0.4 mg PO DAILY 08/09/16 [History] Vitamin E (Dl,Tocopheryl Acet) [Vitamin E] 400 unit PO DAILY 08/09/16 [History] Gabapentin [Neurontin] 100 mg PO DAILY #0 08/14/16 [Rx] Insulin Glargine,Hum.rec.anlog [Lantus Solostar] 20 unit SQ QAM #0 08/14/16 [Rx ] amLODIPine [Norvasc] 5 mg PO DAILY tablet 08/14/16 [Rx] hydrALAZINE [HydrALAZINE] 50 mg PO Q8HR tablet 08/14/16 [Rx] BuPROPion XL (24 HR) [Wellbutrin XL] 150 mg PO DAILY 10/15/16 [History] Buspirone HCl [Buspar] 5 mg PO TID 10/15/16 [History] Cholecalciferol (D-3) [Vitamin D] 5,000 unit PO DAILY 10/15/16 [History] Lisinopril [Zestril] 10 mg PO DAILY 10/15/16 [History] Magnesium Hydroxide [Milk of Magnesia] 2,400 mg PO DAILY PRN 10/15/16 [History] Allergies No Known Allergies Allergy (Verified 08/09/16 13:49) - Meds/Allergy Pre-op Review Medications Reviewed: Yes Allergies Reviewed: Yes Beta Blockers on Current Med List: No Anesthesia Results - Labs 10/25/16 03:13 10/25/16 03:13 - Imaging EKG: report reviewed Anesthesia Exam Selected Entries 10/25/16 13:33 Temperature 97.4 F L Pulse Rate 53 Respiratory Rate 14 Blood Pressure 109/42 O2 Sat by Pulse Oximetry 88 Height: 65in Weight: 196lb NPO (# of Hours): 8 - HEENT Mallampati: III Teeth: Edentulous Oral Opening: Greater than 3 - ADMINISTRATIVE TECHNICIAN LOC: Confused (unable to assess further) - Cardiac Rhythm: Irregular (afib) Murmur: None - Pulmonary Breath Sounds: bilateral Rhonchi Anesthesia Assess/Plan ASA Score: 4 Modified Fabio Scale for Level of Consciousness: Drowsy, but responsive to commands Anesthetic Plan: MAC Monitoring Plan: Standard Monitors Recovery Plan: Other (Discussed risks with laura (POA), advised he is at high risk of requiring intubation and ventilation. She reports her does not want intubated and prolonged intubation. I advised we would have to intubate if needed but that he would not have to be on prolonged ventilation per their request. Agrees to proceed.)
--- NOTE | 2016-10-25 14:43 | Anesthesia Evaluation Post Op ---
Date of Encounter: 10/25/16 Time of Encounter: 14:44 - Vital Signs Vital Signs: Vital Signs/O2 Sat, Most Current Temp Pulse Resp BP Pulse Ox 97.4 F L 53 14 109/42 88 10/25/16 13:33 10/25/16 13:33 10/25/16 13:33 10/25/16 13:33 10/25/16 13:33 - Lungs Lungs: Wheezes - Airway Airway: Non-obstructed - Cardiovascular Baseline Rhythm (afib) - Mental Status Mental Status: Baseline Status - Pain Pain Scale: 0 Pain Scale used: Numeric (1 - 10) - Nausea Vomiting Nausea Vomiting: Not Present - Hydration Hydration: NPO, Sanchez catheter - Discharge PostOp Status: Transfer Patient to floor
--- NOTE | 2016-10-25 16:03 | Internal Med Progress Note ---
<Brigido Eden - Last Filed: 10/25/16 16:11> Date of Encounter: 10/25/16 Time of Encounter: 16:01 - Assessment and plan (1) GI bleed Current Visit: Yes Status: Acute Assessment and plan: Stool occult test positive -hgb dropped to 7.5 and patient had unit of P Piercey transfused. -No active hematochezia or melena. -Hemoglobin stable at 9-9.6. Colonoscopy results: Multiple nonbleeding polyps found size: 20 mm, 14 mm, 10 mm in ascending colon, transverse colon, sigmoid colon respectively. 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 polypoid lesion in the transverse colon. -awaiting path results -CT Chest, Abdomen and pelvis -CT head negative. EGD results: esophagus, small hiatal hernia, gastric mucosal atrophy biopsied, , normal duodenum Qualifiers: GI bleed type/associated pathology: unspecified gastrointestinal hemorrhage type Qualified Code(s): K92.2 - Gastrointestinal hemorrhage, unspecified (2) Encephalopathy acute Current Visit: Yes Status: Resolved Assessment and plan: In setting of serotonin syndrome, metabolic encephalopathy, delirium, progression of dementia. -resolved. - CT head found no acute intracranial abnormality. - CSF gram stain and culture don't indicate infection. - Neurology on board and doubted this is a primary neurologic etiology - Significantly improved as patient remains more awake and able to make jokes. - Continue to monitor. (3) Serotonin syndrome Current Visit: Yes Status: Resolved Assessment and plan: Patient had high fever, rigidity and ocular clonus and patient was on Zoloft, valproic acid, buspar at longterm. -This was treated with cyproheptadine. -Patient is afebrile, awake alert, without clonus. -patient will not be resumed on zoloft, valproic acid, and buspar (4) Acute respiratory failure Current Visit: Yes Status: Acute Assessment and plan: With increased need of oxygen on admission. - Likely secondary to aspiration pneumonia and diastolic CHF exacerbation in the setting of anemia. -Clinically stable as patient is able to maintain good saturation on 3L NC which is what he uses outpatient. - Continue IV Zosyn for aspiration pneumonia for 14 days (day 10) - Continue diuresis with Lasix for CHF. - Continue supplemental oxygen and as needed intermittent BiPAP. - Continue to monitor. - Patient is awaiting for placement in an ECF and possible discharge tomorrow. Qualifiers: Respiratory failure complication: hypoxia Qualified Code(s): J96.01 - Acute respiratory failure with hypoxia (5) Diastolic heart failure Current Visit: Yes Status: Acute Assessment and plan: - Echo on 10/16/16 showed LVEF 60% with moderate diastolic LV dysfunction. No significant valvular abnormality. - Negative 4.8 L so far. - Continue diuresis with Lasix. Qualifiers: Heart failure chronicity: acute on chronic Qualified Code(s): I50.33 - Acute on chronic diastolic (congestive) heart failure (6) Aspiration pneumonia Current Visit: Yes Status: Acute Assessment and plan: - CXR suggests of pneumonia and pulmonary edema. - Continue IV Zosyn day 10. -Continue supplemental oxygen. - Speech therapy and tool marker on board Qualifiers: Aspiration pneumonia type: due to regurgitated food Laterality: bilateral Lung location: upper lobe of lung Qualified Code(s): J69.0 - Pneumonitis due to inhalation of food and vomit (7) Atrial fibrillation Current Visit: Yes Status: Chronic Assessment and plan: - Currently rate controlled. - No on anticoagulation given history of GI bleed. Qualifiers: Atrial fibrillation type: paroxysmal Qualified Code(s): I48.0 - Paroxysmal atrial fibrillation (8) Dementia Current Visit: Yes Status: Chronic Assessment and plan: - History of dementia. - Current mental status can be part of dementia progression. - Continue memantine and donepezil. Qualifiers: Dementia type: unspecified type Dementia behavioral disturbance: without behavioral disturbance Qualified Code(s): F03.90 - Unspecified dementia without behavioral disturbance (9) Diabetes mellitus Current Visit: Yes Status: Chronic Assessment and plan: continue basal insulin to 25 twice a day with SSI continue cardiac ada diet. 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 continue amlodipine to 10mg daily. continue lasix and hydralazine. Qualifiers: Hypertension type: essential hypertension Qualified Code(s): I10 - Essential (primary) hypertension (11) Acute renal failure superimposed on chronic kidney disease Current Visit: Yes Status: Resolved Assessment and plan: - resolved. -SCr as high as 2.39 on 10/17/16 compared to his baseline ~ 1.7. - Likely secondary hypoperfusion related to septic shock and anemia. - Avoid nephrotoxin. - Continue to monitor renal function and electrolytes. (12) Septic shock Current Visit: Yes Status: Resolved Assessment and plan: - BP as low as 84/45 on 10/16/16 requiring vasopressor in ICU. - Likely secondary to aspiration pneumonia. - Resolved as BP improves without the need of vasopressor. - Subjective Interval history: Patient has no new complaints this morning. He will undergo colonoscopy today. - Constitutional Vitals: Temp Pulse Resp BP Pulse Ox 97.4 F L 80 16 138/65 96 10/25/16 14:56 10/25/16 15:21 10/25/16 15:21 10/25/16 15:21 10/25/16 15:21 General appearance: Present: cooperative, A&O X 1 (Oriented to self only not to time or place or situation), no acute distress - Respiratory Respiratory exam: Present: CTAB. Absent: accessory muscle use, rales, rhonchi, wheezes - Cardiovascular Cardiovascular exam: Present: irregular rhythm (atrial fibrillation), +S1, +S2 - GI/Abdominal GI/Abdominal exam: Present: normal bowel sounds, soft, no peritoneal signs. Absent: distended, tenderness - Extremities Exam Extremities exam: Present: warm, radial pulses palpable and symetrical. Absent : calf tenderness, cyanotic, pedal edema - Skin Skin exam: Present: dry, intact Internal Medicine: Result - Labs CBC & Chem 7: 10/25/16 03:13 10/25/16 03:13 Labs: Short CBC 10/25/16 Range/Units 03:13 WBC 9.2 (4.3-11.1) K/mcL Hgb 9.6 L (12.9-16.9) g/dL Hct 29.1 L (37.5-50.1) % Plt Count 323 (140-400) K/mcL Neutrophils # 6.8 (1.6-8.9) K/mcL BMP 10/25/16 03:13 Sodium 141 Potassium 3.1 L Chloride 101 Carbon Dioxide 27 BUN 29 H Creatinine 1.60 H Glucose 211 H Calcium 8.9 - ABG Interpretation ABG results: ABG ABG pH 7.37 pH Units (7.32-7.45) 10/16/16 01:12 ABG pCO2 52 mmHg (35-45) H 10/16/16 01:12 ABG pO2 90 mmHg (85-104) 10/16/16 01:12 ABG O2 Saturation 97 % (95-98) 10/16/16 01:12 Consult Discharge Plan - Plan Referrals: NO,PCP [Primary Care Provider] - <Antwan Galvez P - Last Filed: 10/25/16 17:36> Date of Encounter: 10/25/16 - Assessment and plan (1) Acute respiratory failure Current Visit: Yes Status: Acute Qualifiers: Respiratory failure complication: hypoxia Qualified Code(s): J96.01 - Acute respiratory failure with hypoxia (2) Anemia Current Visit: Yes Status: Acute Qualifiers: Anemia type: unspecified type Qualified Code(s): D64.9 - Anemia, unspecified (3) GI bleed Current Visit: Yes Status: Acute Qualifiers: GI bleed type/associated pathology: unspecified gastrointestinal hemorrhage type Qualified Code(s): K92.2 - Gastrointestinal hemorrhage, unspecified (4) Encephalopathy acute Current Visit: Yes Status: Resolved (5) Aspiration pneumonia Current Visit: Yes Status: Acute Qualifiers: Aspiration pneumonia type: due to regurgitated food Laterality: bilateral Lung location: upper lobe of lung Qualified Code(s): J69.0 - Pneumonitis due to inhalation of food and vomit (6) Serotonin syndrome Current Visit: Yes Status: Resolved - Constitutional Vitals: Temp Pulse Resp BP Pulse Ox 97.0 F L 59 16 161/82 98 10/25/16 16:12 10/25/16 16:12 10/25/16 16:12 10/25/16 16:12 10/25/16 16:12 Internal Medicine: Result - Labs CBC & Chem 7: 10/25/16 03:13 10/25/16 03:13 Labs: Short CBC 10/25/16 Range/Units 03:13 WBC 9.2 (4.3-11.1) K/mcL Hgb 9.6 L (12.9-16.9) g/dL Hct 29.1 L (37.5-50.1) % Plt Count 323 (140-400) K/mcL Neutrophils # 6.8 (1.6-8.9) K/mcL BMP 10/25/16 03:13 Sodium 141 Potassium 3.1 L Chloride 101 Carbon Dioxide 27 BUN 29 H Creatinine 1.60 H Glucose 211 H Calcium 8.9 - ABG Interpretation ABG results: ABG ABG pH 7.37 pH Units (7.32-7.45) 10/16/16 01:12 ABG pCO2 52 mmHg (35-45) H 10/16/16 01:12 ABG pO2 90 mmHg (85-104) 10/16/16 01:12 ABG O2 Saturation 97 % (95-98) 10/16/16 01:12 - Attending Attestation I examined this patient and my medical decision-making was reviewed with the [employer]/PA/Advanced Practice Nurse/Resident Physician. I agree with the documented findings, disposition and treatment plan as described except to the extent set forth below. Family meeting tomorrow. Possible reviewed by surgery. We will decide plan after the family meeting.
[2016-10-26] MEDS: Piperacillin/Tazobactam 3.375 GM in D5% in Water (Mini-Bag+) 100 ML IVPB SCH ×3 (01:07→17:07)
[2016-10-26 05:31] LABS: Basophils # 0.1 K/mcL (0.0-0.2); Basophils % 0.7 %; Eosinophils # 0.3 K/mcL (0.0-0.6); Eosinophils % 3.1 %; Hematocrit 28.9 % (37.5-50.1); Hemoglobin 9.2 g/dL (12.9-16.9); Immature Granulocytes % 0.6 % (0-4); Lymphocytes # 1.4 K/mcL (0.6-4.6); Lymphocytes % 15.2 %; Mean Corpuscular HGB Conc 31.8 g/dL (31.6-35.5); Mean Corpuscular Hemoglobin 30.7 pg (28.0-33.3); Mean Corpuscular Volume 96.3 fL (83.0-100.0); Mean Platelet Volume 11.6 fL (9.4-12.4); Monocytes # 0.6 K/mcL (0.0-1.3); Monocytes % 6.1 %; Neutrophils # 6.7 K/mcL (1.6-8.9); Platelet Count 334 K/mcL (140-400); Red Cell Distribution Width 14.5 % (11.5-14.5); Segmented Neutrophils % 74.3 %
[2016-10-26 05:53] LABS: Calcium 8.9 mg/dL (8.6-10.8)
[2016-10-26] MEDS: Pantoprazole 40 MG VIAL IVP SCH (06:44)
[2016-10-26] MEDS: hydrALAZINE 25 MG TABLET PO SCH ×3 (06:44→21:44)
[2016-10-26] MEDS: Aspirin Enteric Coated 81 MG Tablet PO SCH (08:45)
[2016-10-26] MEDS: *HR* Heparin 5,000 UNIT/ML VIAL SQ SCH ×2 (08:46→18:05)
[2016-10-26] MEDS: Furosemide 40 MG/4 ML VIAL IVP SCH ×2 (08:46→17:06)
[2016-10-26] MEDS: Insulin LISPRO 300 UNITS/3 ML VIAL SQ SCH ×4 (08:46→21:48)
[2016-10-26] MEDS: Ferrous Sulfate Oral Soln 300 MG/5 ML UDC PO SCH ×2 (08:46→17:06)
[2016-10-26] MEDS: Insulin DETEMIR 100 UNIT/ML X5UNITS SQ SCH ×2 (08:55→21:45)
--- NOTE | 2016-10-26 10:30 | Internal Med Progress Note ---
<Brigido Eden - Last Filed: 10/26/16 14:51> Date of Encounter: 10/26/16 Time of Encounter: 13:27 - Assessment and plan (1) Colonic mass Current Visit: Yes Status: Acute Assessment and plan: Colonoscopy results: Multiple nonbleeding polyps found size: 20 mm, 14 mm, 10 mm in ascending colon, transverse colon, sigmoid colon respectively. 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 polypoid lesion in the transverse colon. -awaiting path results -CT Chest, Abdomen and pelvis -CT head negative. EGD results: esophagus, small hiatal hernia, gastric mucosal atrophy biopsied, , normal duodenum Had extensive conversation with family who understand the results of the colonoscopy. We will await evaluation and recommendations form for oncology and general surgery. (2) GI bleed Current Visit: Yes Status: Acute Assessment and plan: Stool occult test positive -hgb dropped to 7.5 and patient had unit of P Piercey transfused. -No active hematochezia or melena. -Hemoglobin stable at 9-9.6. Colonoscopy results: Multiple nonbleeding polyps found size: 20 mm, 14 mm, 10 mm in ascending colon, transverse colon, sigmoid colon respectively. 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 polypoid lesion in the transverse colon. -awaiting path results -CT Chest, Abdomen and pelvis -CT head negative. EGD results: esophagus, small hiatal hernia, gastric mucosal atrophy biopsied, , normal duodenum Qualifiers: GI bleed type/associated pathology: unspecified gastrointestinal hemorrhage type Qualified Code(s): K92.2 - Gastrointestinal hemorrhage, unspecified (3) Encephalopathy acute Current Visit: Yes Status: Resolved Assessment and plan: In setting of serotonin syndrome, metabolic encephalopathy, delirium, progression of dementia. -resolved. - CT head found no acute intracranial abnormality. - CSF gram stain and culture don't indicate infection. - Neurology on board and doubted this is a primary neurologic etiology - Significantly improved as patient remains more awake - Continue to monitor. (4) Serotonin syndrome Current Visit: Yes Status: Resolved Assessment and plan: Patient had high fever, rigidity and ocular clonus and patient was on Zoloft, valproic acid, buspar at correction. -This was treated with cyproheptadine. -Patient is afebrile, awake alert, without clonus. -patient will not be resumed on zoloft, valproic acid, and buspar (5) Acute respiratory failure Current Visit: Yes Status: Acute Assessment and plan: With increased need of oxygen on admission. - Likely secondary to aspiration pneumonia and diastolic CHF exacerbation in the setting of anemia. -Clinically stable as patient is able to maintain good saturation on 3L NC which is what he uses outpatient. - Continue IV Zosyn for aspiration pneumonia for 14 days (day 10) - Continue diuresis with Lasix for CHF. - Continue supplemental oxygen and as needed intermittent BiPAP. - Continue to monitor. - Patient is awaiting for placement in an ECF and possible discharge tomorrow. Qualifiers: Respiratory failure complication: hypoxia Qualified Code(s): J96.01 - Acute respiratory failure with hypoxia (6) Diastolic heart failure Current Visit: Yes Status: Acute Assessment and plan: - Echo on 10/16/16 showed LVEF 60% with moderate diastolic LV dysfunction. No significant valvular abnormality. - Negative 4.8 L so far. - Continue diuresis with Lasix. Qualifiers: Heart failure chronicity: acute on chronic Qualified Code(s): I50.33 - Acute on chronic diastolic (congestive) heart failure (7) Aspiration pneumonia Current Visit: Yes Status: Acute Assessment and plan: - CXR suggests of pneumonia and pulmonary edema. - Continue IV Zosyn day 12 -Continue supplemental oxygen. - Speech therapy and collar tailor on board Qualifiers: Aspiration pneumonia type: due to regurgitated food Laterality: bilateral Lung location: upper lobe of lung Qualified Code(s): J69.0 - Pneumonitis due to inhalation of food and vomit (8) Atrial fibrillation Current Visit: Yes Status: Chronic Assessment and plan: - Currently rate controlled. - No on anticoagulation given history of GI bleed. Qualifiers: Atrial fibrillation type: paroxysmal Qualified Code(s): I48.0 - Paroxysmal atrial fibrillation (9) Dementia Current Visit: Yes Status: Chronic Assessment and plan: - History of dementia. - Current mental status can be part of dementia progression. - Continue memantine and donepezil. Qualifiers: Dementia type: unspecified type Dementia behavioral disturbance: without behavioral disturbance Qualified Code(s): F03.90 - Unspecified dementia without behavioral disturbance (10) Diabetes mellitus Current Visit: Yes Status: Chronic Assessment and plan: continue basal insulin to 25 twice a day with SSI continue cardiac ada diet. 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 continue amlodipine to 10mg daily. continue lasix and hydralazine. Qualifiers: Hypertension type: essential hypertension Qualified Code(s): I10 - Essential (primary) hypertension (12) Acute renal failure superimposed on chronic kidney disease Current Visit: Yes Status: Resolved Assessment and plan: - resolved. -SCr as high as 2.39 on 10/17/16 compared to his baseline ~ 1.7. - Likely secondary hypoperfusion related to septic shock and anemia. - Avoid nephrotoxin. - Continue to monitor renal function and electrolytes. (13) Septic shock Current Visit: Yes Status: Resolved Assessment and plan: - BP as low as 84/45 on 10/16/16 requiring vasopressor in ICU. - Likely secondary to aspiration pneumonia. - Resolved as BP improves without the need of vasopressor. (14) Hypokalemia Current Visit: Yes Status: Acute Assessment and plan: Potassium decreased to 3.0 eddie 2nd to bowel prep for EGD/colonoscopy will replace. repeat tomorrow morning also will check magneisum. - Subjective Interval history: NO problems overnight. Patient awake and alert x1. Conversing well. - Constitutional Vitals: Temp Pulse Resp BP Pulse Ox 98.2 F 68 16 121/50 94 10/26/16 07:05 10/26/16 07:05 10/26/16 07:05 10/26/16 07:05 10/26/16 07:05 General appearance: Present: cooperative, A&O X 1 (Oriented to self only not to time or place or situation), no acute distress - Respiratory Respiratory exam: Present: CTAB. Absent: accessory muscle use, rales, rhonchi, wheezes - Cardiovascular Cardiovascular exam: Present: irregular rhythm, +S1, +S2 - GI/Abdominal GI/Abdominal exam: Present: normal bowel sounds, soft, no peritoneal signs. Absent: distended, tenderness - Extremities Exam Extremities exam: Present: warm, radial pulses palpable and symetrical. Absent : calf tenderness, cyanotic, pedal edema Internal Medicine: Result - Labs CBC & Chem 7: 10/26/16 04:53 10/26/16 04:53 Labs: Short CBC 10/26/16 Range/Units 04:53 WBC 9.0 (4.3-11.1) K/mcL Hgb 9.2 L (12.9-16.9) g/dL Hct 28.9 L (37.5-50.1) % Plt Count 334 (140-400) K/mcL Neutrophils # 6.7 (1.6-8.9) K/mcL BMP 10/26/16 04:53 Sodium 142 Potassium 3.0 L Chloride 103 Carbon Dioxide 31 H BUN 23 Creatinine 1.55 H Glucose 120 H Calcium 8.9 - ABG Interpretation ABG results: ABG ABG pH 7.37 pH Units (7.32-7.45) 10/16/16 01:12 ABG pCO2 52 mmHg (35-45) H 10/16/16 01:12 ABG pO2 90 mmHg (85-104) 10/16/16 01:12 ABG O2 Saturation 97 % (95-98) 10/16/16 01:12 - Impressions Impressions Abdomen/Pelvis CT 10/25/16 20:45 IMPRESSION: Moderate bilateral pleural effusions with bilateral consolidative and ground-glass opacity, suggestive of atelectasis or pneumonia. Mediastinal adenopathy is seen, which is likely reactive to the pulmonary process, less likely though not excluded secondary secondary to metastatic disease. Follow-up to resolution is recommended. Sanchez catheter balloon appears inflated within the prostatic urethra. Recommend repositioning. Cholelithiasis. Results were called by the radiology call center. D/ / Nima Duran MD / Nima Duran MD Interpreting Provider: Nima Duran MD Chest CT 10/25/16 20:45 IMPRESSION: Moderate bilateral pleural effusions with bilateral consolidative and ground-glass opacity, suggestive of atelectasis or pneumonia. Mediastinal adenopathy is seen, which is likely reactive to the pulmonary process, less likely though not excluded secondary secondary to metastatic disease. Follow-up to resolution is recommended. Sanchez catheter balloon appears inflated within the prostatic urethra. Recommend repositioning. Cholelithiasis. Results were called by the radiology call center. D/ / Nima Duran MD / Nima Duran MD Interpreting Provider: Nima Duran MD Consult Discharge Plan - Plan Referrals: NO,PCP [Primary Care Provider] - <Antwan Galvez - Last Filed: 10/26/16 17:31> Date of Encounter: 10/26/16 - Assessment and plan (1) Acute respiratory failure Current Visit: Yes Status: Acute Qualifiers: Respiratory failure complication: hypoxia Qualified Code(s): J96.01 - Acute respiratory failure with hypoxia (2) Anemia Current Visit: Yes Status: Acute Qualifiers: Anemia type: unspecified type Qualified Code(s): D64.9 - Anemia, unspecified (3) GI bleed Current Visit: Yes Status: Acute Qualifiers: GI bleed type/associated pathology: unspecified gastrointestinal hemorrhage type Qualified Code(s): K92.2 - Gastrointestinal hemorrhage, unspecified (4) Encephalopathy acute Current Visit: Yes Status: Resolved (5) Aspiration pneumonia Current Visit: Yes Status: Acute Qualifiers: Aspiration pneumonia type: due to regurgitated food Laterality: bilateral Lung location: upper lobe of lung Qualified Code(s): J69.0 - Pneumonitis due to inhalation of food and vomit (6) Serotonin syndrome Current Visit: Yes Status: Resolved - Constitutional Vitals: Temp Pulse Resp BP Pulse Ox 98.3 F 87 16 155/73 97 10/26/16 15:50 10/26/16 15:50 10/26/16 15:50 10/26/16 15:50 10/26/16 15:50 Internal Medicine: Result - Labs CBC & Chem 7: 10/26/16 04:53 10/26/16 04:53 Labs: Short CBC 10/26/16 Range/Units 04:53 WBC 9.0 (4.3-11.1) K/mcL Hgb 9.2 L (12.9-16.9) g/dL Hct 28.9 L (37.5-50.1) % Plt Count 334 (140-400) K/mcL Neutrophils # 6.7 (1.6-8.9) K/mcL BMP 10/26/16 04:53 Sodium 142 Potassium 3.0 L Chloride 103 Carbon Dioxide 31 H BUN 23 Creatinine 1.55 H Glucose 120 H Calcium 8.9 - ABG Interpretation ABG results: ABG ABG pH 7.37 pH Units (7.32-7.45) 10/16/16 01:12 ABG pCO2 52 mmHg (35-45) H 10/16/16 01:12 ABG pO2 90 mmHg (85-104) 10/16/16 01:12 ABG O2 Saturation 97 % (95-98) 10/16/16 01:12 - Impressions Impressions Abdomen/Pelvis CT 10/25/16 20:45 IMPRESSION: Moderate bilateral pleural effusions with bilateral consolidative and ground-glass opacity, suggestive of atelectasis or pneumonia. Mediastinal adenopathy is seen, which is likely reactive to the pulmonary process, less likely though not excluded secondary secondary to metastatic disease. Follow-up to resolution is recommended. Sanchez catheter balloon appears inflated within the prostatic urethra. Recommend repositioning. Cholelithiasis. Results were called by the radiology call center. D/ / Nima Duran MD / Nima Duran MD Interpreting Provider: Nima Duran MD Chest CT 10/25/16 20:45 IMPRESSION: Moderate bilateral pleural effusions with bilateral consolidative and ground-glass opacity, suggestive of atelectasis or pneumonia. Mediastinal adenopathy is seen, which is likely reactive to the pulmonary process, less likely though not excluded secondary secondary to metastatic disease. Follow-up to resolution is recommended. Sanchez catheter balloon appears inflated within the prostatic urethra. Recommend repositioning. Cholelithiasis. Results were called by the radiology call center. D/ / Nima Duran MD / Nima Duran MD Interpreting Provider: Nima Duran MD - Attending Attestation I examined this patient and my medical decision-making was reviewed with the PACKING INSPECTOR/PA/Advanced Practice Nurse/Resident Physician. I agree with the documented findings, disposition and treatment plan as described except to the extent set forth below. Oncology/surgery recommendations appreciated.
--- NOTE | 2016-10-26 13:08 | Oncology Inp Consult Note ---
Date of Encounter: 10/27/16 Time of Encounter: 13:03 Assessment and Plan (1) Community acquired pneumonia Status: Acute Assessment and plan: Sepsis pleural effusion improving. 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 CEA only mildly elevated at 5.5 on 10/26/2016. Await pathology report. Noncontrast CT abdomen and pelvis negative as mentioned but may not be sensitive enough May consider PET scan as an outpatient to complete staging. He is been a resident of [facility] at [place] for last 4 years. May be difficult to get the PET scan authorized because he is a [facility] resident Stage III chronic kidney disease with current creatinine 1.65. May not be able to use IV contrast because of that. Agree with surgical consult. This time it appears to be a localized disease. Had a long discussion with the and daughter. Patient does have some underlying dementia. They are interested in taking care of the colon cancer problem during this admission Qualifiers: GI bleed type/associated pathology: unspecified gastrointestinal hemorrhage type Qualified Code(s): K92.2 - Gastrointestinal hemorrhage, unspecified - Data of Consult Requesting Physician: Babak Linder MD Primary Care Provider: PCP NO - Consult Narrative Reason for consult: Rectosigmoid mass History of present illness: Mr. Thrasher is a 76 year old male hospitalized with pneumonia and sepsis. Was in ICU with pressors and BP stabilized and he is doing better. Also metabolic encephalopathy improved. He does have underlying dementia. He is a resident of [facility] at [place] for the last 4 years GI bleed with hemoglobin dropping to around 7.7 on 2016 followed by 1 unit of packed RBC transfusion. Since then stable around 9 range Colonoscopy 10/25/2016 showed malignant appearing tumor rectosigmoid colon. Biopsy done and results pending 2 cm polyp ascending colon, 1.4 cm polyp transverse colon and 1 cm polyp sigmoid colon all excised CEA 5.[address] of head 10/16/[address] chest without contrast and CT abdomen and pelvis without contrast to 2016 showed bilateral moderate effusion with lateral basal groundglass opacities suggesting pneumonia Cholelithiasis. Echocardiogram 10/16/2016 ejection fraction 60% with normal left ventricular systolic function. Moderate diastolic dysfunction. No major valvular dysfunction Past Med Surg Social Fam HX - Past Medical History Medical history: arthritis, atrial fibrillation, CHF, COPD, coronary artery disease, dementia, diabetes, hypertension, renal disease, venous stasis Psychiatric history: anxiety, depression - Past Surgical History Surgical History: no surgical history (Unable to obtain due to patient's mental status) - Social History Smoking Status: Never smoker Smokeless Tobacco Status: No Alcohol use: none Drug use: none - Family History Daughter Living Status: Still Living Hx Family Cardiac Disorders: No Hx Family Respiratory Disorders: No Hx Family Cancer: No Hx Family GI Disorders: No Hx Family Genitourinary Disorders: Yes (Chronic kidney disease) Medications and Allergies Acetaminophen [Tylenol Arthritis] 650 mg PO Q6H PRN 08/09/16 [History] Aspirin Enteric Coated [Aspirin EC] 81 mg PO DAILY 08/09/16 [History] Atorvastatin [Lipitor] 40 mg PO HS 08/09/16 [History] Divalproex (24 HR) [Depakote ER (24 HR)] 1,250 mg PO DAILY 08/09/16 [History] Donepezil HCl [Aricept] 10 mg PO DAILY 08/09/16 [History] Furosemide [Lasix] 60 mg PO DAILY 08/09/16 [History] Glucagon,Human Recombinant [Glucagon Emergency Kit] 1 mg IM Q15M PRN 08/09/16 [ History] HYDROcodone/Acet 5/325 mg [[place] 5-325 mg] 1 tab PO Q6H PRN 08/09/16 [History] Insulin ASPART [NovoLOG] 2 - 10 unit SQ ACHS 08/09/16 [History] Memantine HCl 10 mg PO BID 08/09/16 [History] Sertraline [Zoloft] 150 mg PO DAILY 08/09/16 [History] Tamsulosin [Flomax] 0.4 mg PO DAILY 08/09/16 [History] Vitamin E (Dl,Tocopheryl Acet) [Vitamin E] 400 unit PO DAILY 08/09/16 [History] Gabapentin [Neurontin] 100 mg PO DAILY #0 08/14/16 [Rx] Insulin Glargine,Hum.rec.anlog [Lantus Solostar] 20 unit SQ QAM #0 08/14/16 [Rx ] amLODIPine [Norvasc] 5 mg PO DAILY tablet 08/14/16 [Rx] hydrALAZINE [HydrALAZINE] 50 mg PO Q8HR tablet 08/14/16 [Rx] BuPROPion XL (24 HR) [Wellbutrin XL] 150 mg PO DAILY 10/15/16 [History] Buspirone HCl [Buspar] 5 mg PO TID 10/15/16 [History] Cholecalciferol (D-3) [Vitamin D] 5,000 unit PO DAILY 10/15/16 [History] Lisinopril [Zestril] 10 mg PO DAILY 10/15/16 [History] Magnesium Hydroxide [Milk of Magnesia] 2,400 mg PO DAILY PRN 10/15/16 [History] Allergies No Known Allergies Allergy (Verified 08/09/16 13:49) Oncology - Exam - Constitutional Vitals: Temp Pulse Resp BP Pulse Ox 98.2 F 70 16 135/63 94 10/26/16 11:26 10/26/16 11:26 10/26/16 11:26 10/26/16 11:26 10/26/16 11:26 Exam: GENERAL: Alert and oriented, well appearing. Mental Status: Affect appropriate for circumstances HEENT: Sclerae anicteric. No mucositis or thrush. No other oral or pharyngeal lesions or erythema. Skin: No rashes or petechiae. No evidence of skin malignancy Lymph nodes: No cervical, supraclavicular, axillary, or inguinal adenopathy. Lungs: Air entry normal with normal breath sounds. No rhonchi or wheezing Cardiovascular: Regular rate and rhythm. No skipped beats Abdomen: Soft, nontender; no organomegaly or masses palpable. Extremities: No edema. No calf swelling or tenderness. No joint deformity. Neurologic: Alert, cranial nerves II-XII intact; normal gait; no focal weakness or sensory abnormalities Oncology - Results - Labs Labs: Short CBC 10/26/16 Range/Units 04:53 WBC 9.0 (4.3-11.1) K/mcL Hgb 9.2 L (12.9-16.9) g/dL Hct 28.9 L (37.5-50.1) % Plt Count 334 (140-400) K/mcL Neutrophils # 6.7 (1.6-8.9) K/mcL BMP 10/26/16 04:53 Sodium 142 Potassium 3.0 L Chloride 103 Carbon Dioxide 31 H BUN 23 Creatinine 1.55 H Glucose 120 H Calcium 8.9 Consult Discharge Plan - Plan Referrals: NO,PCP [Primary Care Provider] -
[2016-10-26] MEDS ORDERED: Potassium Chloride Elixir 20 MEQ/15 ML UDC PO ONE (14:12)
--- NOTE | 2016-10-26 15:42 | General Surgery Consult Note ---
Date of Encounter: 10/26/16 Time of Encounter: 15:00 Assessment and Plan (1) Colonic mass Current Visit: Yes Status: Acute Rectosigmoid mass (non-obstructing) identified with colonoscopy complete by Dr. Bailey 10/25/16 Await pathology CEA ordered CT abdomen/pelvis/chest reviewed Oncology following Will await pathology and then discuss further plan of care with the patients and children (patient unable to make decisions regarding his plan of care due to severe dementia) Will likely need a PET scan as an outpatient Supportive care No urgent/emergent indication for surgery at this time (2) Polyp of transverse colon Current Visit: Yes Status: Acute Await pathology Qualifiers: Colon polyp type: unspecified Qualified Code(s): D12.3 - Benign neoplasm of transverse colon (3) Anemia Current Visit: Yes Status: Acute Hgb stable Continue to monitor and treat as necessary Qualifiers: Anemia type: unspecified type Qualified Code(s): D64.9 - Anemia, unspecified History of Present Illness Consult date: 10/26/16 Reason for consult: other (rectosigmoid mass) Requesting physician: Brigido Eden History of present illness: Mr. Thrasher is a 76-year-old male with multiple comorbidities. He presented to the hospital from an extended care facility and was treated for pneumonia, sepsis, metabolic encephalopathy. He has improved and stabilized and then transferred out of the intensive care unit. He did have anemia also noted during his workup. He is recently status post upper and lower endoscopy with Dr. Bailey. His colonoscopy revealed a suspected rectosigmoid tumor as well as a transverse colon polyp. Pathology is currently pending. We have been asked to see and evaluate the patient for recommendations. The family is at the bedside and presenting much of the information however they are poor historians. The patient is unable to answer any questions due to his history of dementia. The family does report rectal bleeding at the extended care facility but the details are unclear. There unable to describe any changes in bowel habits. The states that she feels her has had weight loss but she is unsure how much. The patient denies any abdominal discomfort at this time. Denies any nausea or vomiting. The does report that he has been more lethargic and fatigued prior to coming into the hospital. She states his last endoscopy and colonoscopy was complete approximately 3 years ago at [facility]. The does state that she visits her at the extended care facility every other day. Past Med Surg Social Fam HX - Past Medical History Source: old records reviewed Medical history: arthritis, atrial fibrillation, CHF, COPD, coronary artery disease, dementia, diabetes, hypertension, renal disease, venous stasis Psychiatric history: anxiety, depression - Past Surgical History Surgical History: angioplasty/stent (2009), other (LLE surgery secondary to trauma while in the service, EGD/Colonoscopy approximately 3 years ago at [facility]) - Social History Smoking Status: Never smoker Smokeless Tobacco Status: No Alcohol use: none Drug use: none Occupational status: disabled Current living situation: ECF - Family History Daughter Living Status: Still Living Hx Family Cardiac Disorders: No Hx Family Respiratory Disorders: No Hx Family Cancer: No Hx Family GI Disorders: No Hx Family Genitourinary Disorders: Yes (Chronic kidney disease) Medications and Allergies Acetaminophen [Tylenol Arthritis] 650 mg PO Q6H PRN 08/09/16 [History] Aspirin Enteric Coated [Aspirin EC] 81 mg PO DAILY 08/09/16 [History] Atorvastatin [Lipitor] 40 mg PO HS 08/09/16 [History] Divalproex (24 HR) [Depakote ER (24 HR)] 1,250 mg PO DAILY 08/09/16 [History] Donepezil HCl [Aricept] 10 mg PO DAILY 08/09/16 [History] Furosemide [Lasix] 60 mg PO DAILY 08/09/16 [History] Glucagon,Human Recombinant [Glucagon Emergency Kit] 1 mg IM Q15M PRN 08/09/16 [ History] HYDROcodone/Acet 5/325 mg [[place] 5-325 mg] 1 tab PO Q6H PRN 08/09/16 [History] Insulin ASPART [NovoLOG] 2 - 10 unit SQ ACHS 08/09/16 [History] Memantine HCl 10 mg PO BID 08/09/16 [History] Sertraline [Zoloft] 150 mg PO DAILY 08/09/16 [History] Tamsulosin [Flomax] 0.4 mg PO DAILY 08/09/16 [History] Vitamin E (Dl,Tocopheryl Acet) [Vitamin E] 400 unit PO DAILY 08/09/16 [History] Gabapentin [Neurontin] 100 mg PO DAILY #0 08/14/16 [Rx] Insulin Glargine,Hum.rec.anlog [Lantus Solostar] 20 unit SQ QAM #0 08/14/16 [Rx ] amLODIPine [Norvasc] 5 mg PO DAILY tablet 08/14/16 [Rx] hydrALAZINE [HydrALAZINE] 50 mg PO Q8HR tablet 08/14/16 [Rx] BuPROPion XL (24 HR) [Wellbutrin XL] 150 mg PO DAILY 10/15/16 [History] Buspirone HCl [Buspar] 5 mg PO TID 10/15/16 [History] Cholecalciferol (D-3) [Vitamin D] 5,000 unit PO DAILY 10/15/16 [History] Lisinopril [Zestril] 10 mg PO DAILY 10/15/16 [History] Magnesium Hydroxide [Milk of Magnesia] 2,400 mg PO DAILY PRN 10/15/16 [History] Allergies No Known Allergies Allergy (Verified 08/09/16 13:49) Review of Systems ROS unobtainable: due to mental status All systems PM: A 10-system review of systems was performed and is negative for pertinent findings except as documented above in the HPI. General Surgery Exam Initial Vital Signs Temp Pulse Resp BP Pulse Ox 99.3 F 78 18 127/69 96 10/14/16 19:45 10/14/16 19:45 10/14/16 19:45 10/14/16 19:45 10/14/16 19:45 - General physical appearance well developed, well nourished, no distress - Eyes normal ocular movement - ENT normal mucosa, atraumatic, normocephalic - Neck trachea midline - Respiratory normal respiratory effort, clear to auscultation, other (diminished bibasilar bases) - Cardiovascular Cardiovascular exam: Present: RRR - Abdomen Abdomen general surgery: Present: bowel sounds present, soft, non tender - Integumentary Integumentary general surgery: Present: warm and dry - Neurologic Present: CN 2-12 grossly intact - Musculoskeletal Present: other (moderate deconditioning noted) - Psychiatric Psychiatric general surgery: Present: A&Ox3 Exam Initial Vital Signs Temp Pulse Resp BP Pulse Ox 99.3 F 78 18 127/69 96 10/14/16 19:45 10/14/16 19:45 10/14/16 19:45 10/14/16 19:45 10/14/16 19:45 Results - Labs 10/26/16 04:53 10/26/16 04:53 Abnormal lab results RBC 3.00 M/mcL (4.19-5.50) L 10/26/16 04:53 Hgb 9.2 g/dL (12.9-16.9) L 10/26/16 04:53 Hct 28.9 % (37.5-50.1) L 10/26/16 04:53 Band Neutrophils % 6.0 % (0-4) H 10/23/16 05:21 Metamyelocytes % 2.0 % (0) H 10/21/16 03:33 Myelocytes % 2.0 % (0) H 10/23/16 05:21 Nucleated RBCs/100 WBC 0.5 /100 WBC (0) H 10/15/16 05:30 Reactive Lymphocytes Present (Not Present) A 10/23/16 05:21 Smudge Cells Present (Not Present) A 10/21/16 03:33 Toxic Granulation Present (Not Present) A 10/23/16 05:21 Large Platelets Present (Not Present) A 10/23/16 05:21 Immature Plt Fraction 7.8 % (1.1-6.1) H 10/25/16 03:13 Polychromasia 1+ (Not Present) A 10/21/16 03:33 ABG pCO2 52 mmHg (35-45) H 10/16/16 01:12 ABG HCO3 30.1 mEQ/L (21-27) H 10/16/16 01:12 ABG Total CO2 31.7 mEq/L (20-26) H 10/16/16 01:12 ABG Base Excess 4.1 mEq/L (-2.0 to 3.0) H 10/16/16 01:12 Potassium 3.0 mEq/L (3.5-4.5) L 10/26/16 04:53 Carbon Dioxide 31 mEq/L (19-29) H 10/26/16 04:53 Creatinine 1.55 mg/dL (0.72-1.25) H 10/26/16 04:53 Est GFR ( Amer) 53 (> 60) L 10/26/16 04:53 Est GFR (Non-Af Amer) 44 (> 60) L 10/26/16 04:53 Glucose 120 mg/dL (70-99) H 10/26/16 04:53 POC Glucose 161 (58-89) H 10/25/16 23:21 Iron 9 mcg/dL (65-175) L 10/16/16 03:26 % Saturation 5 % (20-55) L 10/16/16 03:26 Transferrin 136 mg/dL (174-364) L 10/16/16 03:26 Ferritin 306 ng/ml (22-275) H 10/16/16 03:26 AST 35 Units/L (5-34) H 10/23/16 05:21 Creatine Kinase 207 Units/L (30-200) H D 10/16/16 07:51 Troponin I 0.06 ng/mL (0-0.03) H* 10/15/16 14:31 B-Natriuretic Peptide 181 pg/mL (0-100) H 10/14/16 20:57 Albumin 2.2 g/dL (3.5-5.0) L 10/23/16 05:21 Globulin 4.1 g/dL (2.4-3.5) H 10/23/16 05:21 Albumin/Globulin Ratio 0.5 (1.1-2.2) L 10/23/16 05:21 Prealbumin 9.0 mg/dL (18.0-45.0) L 10/16/16 12:20 HDL Cholesterol 32 mg/dL (40-59) L 10/15/16 05:30 Urine Protein 100 mg/dL (Neg-Trace) H 10/14/16 20:10 Urine Microscopic RBC 3-5 per hpf (0-3) H 10/14/16 20:10 Ur Squamous Epith Cells Many per lpf (None-Few) H 10/14/16 20:10 CSF Glucose 117 mg/dL (40-70) H 10/15/16 18:18 CSF Total Protein 55 mg/dL (15-45) H 10/15/16 18:18 HSV I Glycoprot G IgG 2.14 IV (<=0.89) H 10/15/16 18:18 Stool Occult Blood Positive (Negative) A 10/17/16 14:20 Valproic Acid 36.24 mcg/mL (50-100) L 10/15/16 14:31 Diabetes panel 10/26/16 Range/Units 04:53 Sodium 142 (136-145) mEq/L Potassium 3.0 L (3.5-4.5) mEq/L Chloride 103 (98-109) mEq/L Carbon Dioxide 31 H (19-29) mEq/L BUN 23 (8-26) mg/dL Creatinine 1.55 H (0.72-1.25) mg/dL Glucose 120 H (70-99) mg/dL Calcium 8.9 (8.6-10.8) mg/dL Calcium panel 10/26/16 Range/Units 04:53 Calcium 8.9 (8.6-10.8) mg/dL Pituitary panel 10/26/16 Range/Units 04:53 Sodium 142 (136-145) mEq/L Potassium 3.0 L (3.5-4.5) mEq/L Chloride 103 (98-109) mEq/L Carbon Dioxide 31 H (19-29) mEq/L BUN 23 (8-26) mg/dL Creatinine 1.55 H (0.72-1.25) mg/dL Glucose 120 H (70-99) mg/dL Calcium 8.9 (8.6-10.8) mg/dL Adrenal panel 10/26/16 Range/Units 04:53 Sodium 142 (136-145) mEq/L Potassium 3.0 L (3.5-4.5) mEq/L Chloride 103 (98-109) mEq/L Carbon Dioxide 31 H (19-29) mEq/L BUN 23 (8-26) mg/dL Creatinine 1.55 H (0.72-1.25) mg/dL Glucose 120 H (70-99) mg/dL Calcium 8.9 (8.6-10.8) mg/dL All other labs normal. - Imaging Additional studies: KUB X-Ray 10/15/16 17:46 IMPRESSION: Nasogastric tube extends to the expected location of stomach. D/ / Nima Duran MD / Nima Duran MD Interpreting Provider: Nima Duran MD Head CT 10/16/16 10:30 IMPRESSION: 1. Stable global atrophy and chronic small vessel ischemic disease. 2. No acute intracranial hemorrhage, hydrocephalus, or evidence of an evolving infarct. D/ / 10/16/2016 11:08:20 Kumar Mercer MD / flavia Interpreting Provider: Kumar Mercer MD Chest X-Ray 10/19/16 02:25 IMPRESSION: Worsening pulmonary edema and bilateral effusions. Nasogastric tube is no longer seen. D/ / 10/19/2016 07:03:24 Anabella Rocha MD / tkmary Interpreting Provider: Anabella Rocha MD Abdomen/Pelvis CT 10/25/16 20:45 IMPRESSION: Moderate bilateral pleural effusions with bilateral consolidative and ground-glass opacity, suggestive of atelectasis or pneumonia. Mediastinal adenopathy is seen, which is likely reactive to the pulmonary process, less likely though not excluded secondary secondary to metastatic disease. Follow-up to resolution is recommended. Sanchez catheter balloon appears inflated within the prostatic urethra. Recommend repositioning. Cholelithiasis. Results were called by the radiology call center. D/ / Nima Duran MD / Nima Duran MD Interpreting Provider: Nima Duran MD Chest CT 10/25/16 20:45 IMPRESSION: Moderate bilateral pleural effusions with bilateral consolidative and ground-glass opacity, suggestive of atelectasis or pneumonia. Mediastinal adenopathy is seen, which is likely reactive to the pulmonary process, less likely though not excluded secondary secondary to metastatic disease. Follow-up to resolution is recommended. Sanchez catheter balloon appears inflated within the prostatic urethra. Recommend repositioning. Cholelithiasis. Results were called by the radiology call center. D/ / Nima Duran MD / Nima Duran MD Interpreting Provider: Nima Duran MD Consult Discharge Plan - Plan Referrals: NO,PCP [Primary Care Provider] - - Attending Attestation I examined this patient and my medical decision-making was reviewed with the TENTMAKER/PA/Advanced Practice Nurse/Resident Physician. I agree with the documented findings, disposition and treatment plan as described except to the extent set forth below.
[2016-10-27] MEDS: Piperacillin/Tazobactam 3.375 GM in D5% in Water (Mini-Bag+) 100 ML IVPB SCH ×2 (00:08→09:43)
[2016-10-27] MEDS: *HR* Heparin 5,000 UNIT/ML VIAL SQ SCH (05:20)
[2016-10-27] MEDS: hydrALAZINE 25 MG TABLET PO SCH ×2 (05:20→13:31)
[2016-10-27 05:28] LABS: Basophils # 0.1 K/mcL (0.0-0.2); Basophils % 0.8 %; Eosinophils # 0.4 K/mcL (0.0-0.6); Eosinophils % 5.5 %; Hematocrit 28.4 % (37.5-50.1); Hemoglobin 9.4 g/dL (12.9-16.9); Immature Granulocytes % 0.6 % (0-4); Lymphocytes # 1.4 K/mcL (0.6-4.6); Lymphocytes % 21.7 %; Mean Corpuscular HGB Conc 33.1 g/dL (31.6-35.5); Mean Corpuscular Volume 96.6 fL (83.0-100.0); Mean Platelet Volume 11.4 fL (9.4-12.4); Monocytes # 0.7 K/mcL (0.0-1.3); Monocytes % 11.1 %; Neutrophils # 3.9 K/mcL (1.6-8.9); Platelet Count 344 K/mcL (140-400); Red Blood Count 2.94 M/mcL (4.19-5.50); Red Cell Distribution Width 14.6 % (11.5-14.5); Segmented Neutrophils % 60.3 %
[2016-10-27 05:37] LABS: Calcium 9.2 mg/dL (8.6-10.8); Magnesium 1.9 mg/dL (1.6-2.6); Potassium 2.9 mEq/L (3.5-4.5)
[2016-10-27 05:40] VITALS: BP 139/66
[2016-10-27 06:23] LABS: Carcinoembryonic Antigen 5.5 ng/mL (0-5.0)
[2016-10-27] MEDS ORDERED: Potassium Chloride Elixir 20 MEQ/15 ML UDC PO ONE (09:12)
--- NOTE | 2016-10-27 09:29 | Discharge Summary ---
<Brigido Eden - Last Filed: 10/27/16 15:08> Date of Encounter: 10/27/16 Time of Encounter: 09:30 - Discharge Diagnosis (1) Acute respiratory failure Priority: Primary Status: Acute Qualifiers: Respiratory failure complication: hypoxia Qualified Code(s): J96.01 - Acute respiratory failure with hypoxia (2) Colonic mass Priority: Secondary Status: Acute (3) GI bleed Priority: Secondary Status: Acute Qualifiers: GI bleed type/associated pathology: unspecified gastrointestinal hemorrhage type Qualified Code(s): K92.2 - Gastrointestinal hemorrhage, unspecified (4) Encephalopathy acute Priority: Secondary Status: Resolved (5) Serotonin syndrome Priority: Secondary Status: Resolved (6) Diastolic heart failure Priority: Secondary Status: Acute Qualifiers: Heart failure chronicity: acute on chronic Qualified Code(s): I50.33 - Acute on chronic diastolic (congestive) heart failure (7) Aspiration pneumonia Priority: Secondary Status: Acute Qualifiers: Aspiration pneumonia type: due to regurgitated food Laterality: bilateral Lung location: upper lobe of lung Qualified Code(s): J69.0 - Pneumonitis due to inhalation of food and vomit (8) Atrial fibrillation Priority: Secondary Status: Chronic Qualifiers: Atrial fibrillation type: paroxysmal Qualified Code(s): I48.0 - Paroxysmal atrial fibrillation (9) Dementia Priority: Secondary Status: Chronic Qualifiers: Dementia type: unspecified type Dementia behavioral disturbance: without behavioral disturbance Qualified Code(s): F03.90 - Unspecified dementia without behavioral disturbance (10) Diabetes mellitus Priority: Secondary Status: Chronic Qualifiers: Diabetes mellitus type: type 2 Diabetes mellitus complication status: without complication Diabetes mellitus intermediate insulin use: with intermediate use Qualified Code(s): E11.9 - Type 2 diabetes mellitus without complications ; Z79.4 - [facility] (current) use of insulin (11) Hypertension Priority: Secondary Status: Resolved Qualifiers: Hypertension type: essential hypertension Qualified Code(s): I10 - Essential (primary) hypertension (12) Acute renal failure superimposed on chronic kidney disease Priority: Secondary Status: Resolved (13) Septic shock Priority: Secondary Status: Resolved (14) Hypokalemia Priority: Secondary Status: Acute - Discharge Medications Prescriptions: HYDROcodone/Acet 5/325 mg [[place] 5-325 mg] 1 tab PO Q6H PRN #18 tablet PRN Reason: Pain Potassium Chloride 10 meq PO DAILY #30 tab.er.prt Home Medications: Acetaminophen [Tylenol Arthritis] 650 mg PO Q6H PRN 08/09/16 [History] Aspirin Enteric Coated [Aspirin EC] 81 mg PO DAILY 08/09/16 [History] Atorvastatin [Lipitor] 40 mg PO HS 08/09/16 [History] Donepezil HCl [Aricept] 10 mg PO DAILY 08/09/16 [History] Furosemide [Lasix] 60 mg PO DAILY 08/09/16 [History] Glucagon,Human Recombinant [Glucagon Emergency Kit] 1 mg IM Q15M PRN 08/09/16 [ History] Insulin ASPART [NovoLOG] 2 - 10 unit SQ ACHS 08/09/16 [History] Memantine HCl 10 mg PO BID 08/09/16 [History] Tamsulosin [Flomax] 0.4 mg PO DAILY 08/09/16 [History] Vitamin E (Dl,Tocopheryl Acet) [Vitamin E] 400 unit PO DAILY 08/09/16 [History] Gabapentin [Neurontin] 100 mg PO DAILY #0 08/14/16 [Rx] Insulin Glargine,Hum.rec.anlog [Lantus Solostar] 20 unit SQ QAM #0 08/14/16 [Rx ] amLODIPine [Norvasc] 5 mg PO DAILY tablet 08/14/16 [Rx] hydrALAZINE [HydrALAZINE] 50 mg PO Q8HR tablet 08/14/16 [Rx] Cholecalciferol (D-3) [Vitamin D] 5,000 unit PO DAILY 10/15/16 [History] Magnesium Hydroxide [Milk of Magnesia] 2,400 mg PO DAILY PRN 10/15/16 [History] HYDROcodone/Acet 5/325 mg [[place] 5-325 mg] 1 tab PO Q6H PRN #18 tablet 10/27/16 [Rx] Potassium Chloride 10 meq PO DAILY #30 tab.er.prt 10/27/16 [Rx] Allergies/Adverse Reactions: Allergies No Known Allergies Allergy (Verified 08/09/16 13:49) Procedures/tests Complete & Pending: Procedures Performed prior 72 hours Category Date Time Status CT abd pelvis wo iv oral only [CT] Routine Cat Scan 10/25/16 20:[address] chest wo con [CT] Routine Cat Scan 10/25/16 20:45 Completed ECG 12 lead ECG [ECG] Routine Y 10/24/16 17:11 Completed Date of admission: 10/15/16 02:45 Primary care physician: PCP NO Consults: 10/15/16 16:41 Consult to Neurology [CONS] Stat Consulting Provider: [facility] Reason for Consult: meningitis Call Completed: Yes 10/15/16 16:52 Consult to Critical Care [CONS] Stat Consulting Provider: [facility] Reason for Consult: serotonin syndrome. Call Completed: Yes 10/16/16 10:15 Consult to Interpret Exam [CONS] Routine Consulting Provider: Rajinder Overton Consult to Interpret Exam: Interpret EEG 10/17/16 11:07 Consult to Speech Therapy [CONS] Stat Comment: Evaluate, develop and implement POC Reason for Consult: AMS, now resolved, likely aspiration pneumonia. needs swallow eval. Call Completed: No 10/18/16 11:47 Consult to Gastroenterology [CONS] Routine Consulting Provider: [facility] Reason for Consult: 76 yo M admitted for AMS. Hgb dropped to as low as 7.5. ( +) stool occult test. S/p 1 unit of pRBC and Hgb 9.3 today. Now on Protonix IV BID. Appreciate further evaluation for GI bleed. Call Completed: Yes 10/26/16 11:47 Consult to Pastoral Services [CONS] Routine Comment: 10/26/16 11:49 Consult to Oncology [CONS] Routine Consulting Provider: [facility] Reason for Consult: colon mass Call Completed: Yes Consult to Surgery [CONS] Routine Consulting Provider: [facility] Reason for Consult: colon mass Call Completed: Yes Discharging clinician: Brigido Eden Anticipated date of discharge: 10/27/16 - Patient Status Disposition: Transfer SNF Condition: Fair Overall status at discharge: patient is progressing back to baseline - Discharge Instructions Instructions: Potassium Chloride (By mouth), Atrial Fibrillation (DC), Diabetes Mellitus Type 2 in Adults (DC), Aspiration Pneumonia (DC), Aspiration Pneumonia (GEN), Chronic Obstructive Pulmonary Disease (DC), Chronic Hypertension (DC), Anemia (GEN), Pneumonia (DC) Follow Up With: Conrad Bryan DO [Partnered Physician] - 10/31/16 10:50 am (rectosigmoid mass) China Singleton MD [Partnered Physician] - 11/16/16 9:50 am (rectosigmoid mass) NO,PCP [Primary Care Provider] - Forms: ED Satisfaction Letter Additional Instructions: Please return to ER if you have signs of bloody vomiting, bloody stools, increased confusion, altered mental status, weakness. Please follow up with oncology and general surgery. Please stop taking sertraline, busprione, valproic acid, wellbutrin. - Diet and Activity Activity: as per physical therapy Diet: diabetic diet, low fat, low cholesterol, low salt diet Hospital course: Mr. Thrasher is a 76 year old male arrived due to family worried about decline in functional status. Baseline patient has hx of dementia and alert to self only. Patient was reported to be unable to feed himself, appear dull, and is nonverbal and weak. CT head negative. DNR-CCADNI. On day of admission patient had hypertension, temp 104, sPO2 decreased to <88. Clonus, became unarousable. Started on 100% NRB. ABG showed hypoxia but not acidotic. Patient was on zoloft , valproic acid, buspar and suspected to be in serotonin syndrome. He was treated with cyprohepatadine via NG tube, and given ativan pushes to control symptoms. Neurology was consulted, underwent lumbar puncture which was negative for meningitis, and given 500mg keppra once due to suspecting seizures. This was also complicated by acute respiratory failure 2nd to diastolic CHF exacerbation and aspiration pneumonia. Treated with zosyn and lasix. He was transferred to ICU. Patient night of admission went into spetic shock, started on vasopresors, went into KELSEY. EEG done the next day showing: EEG recording is abnormal and is consistent with a moderate to severe generalized encephalopathy. There is no evidence of epileptiform activity identified during the study. Next 24-48 hours , came off vasopressors, he was given 1 PBRC as his hgb dropped to 7.5 and moved to floor, but patients was somnolent but arousable. Stool occult was positve. GI consulted and patient underwent colonoscopy with findings: Multiple nonbleeding polyps found size: 20 mm, 14 mm, 10 mm in ascending colon, transverse colon, sigmoid colon respectively. 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 polypoid lesion in the transverse colon. Pathology not resulted yet. EGD was WNL. Oncology consulted and recommened outpatient PET and awaiting biopsy. General surgery stated family guarded on any surgical intervention. Patient mental status improved at the end of his stay: awake oriented x1, conversing well. He tolerated his diet. On home 3L O2. Received 12 days of zosyn , w/o sob. Family understand plan of care Plan: d/c valproic acid, sertraline, busprione. Continue donepazil and memantine. Continue lasix. Patient started on potassium chloride 10 MEQ daily. Followup with oncology and general surgery outpatient. - Time Spent with Patient Total time spent providing and/or coordinating discharge services: - Constitutional Vitals: Temp Pulse Resp BP Pulse Ox 97.9 F 92 18 139/66 96 10/27/16 07:00 10/27/16 07:00 10/27/16 07:00 10/27/16 05:39 10/27/16 07:00 General appearance: Present: cooperative, A&O X 1 (Oriented to self only not to time or place or situation), no acute distress - Head Head exam: Present: atraumatic, normocephalic - Eye Eye exam: Present: PERRL, conjuntiva pink, sclera anicteric - Neck Neck exam general surgery: Present: supple, trachea midline. Absent: lymphadenopathy - Respiratory Respiratory exam: Present: CTAB. Absent: accessory muscle use, rales, rhonchi, wheezes - Cardiovascular Cardiovascular exam: Present: bradycardia, irregular rhythm, +S1, +S2. Absent: diastolic murmur, gallop, rubs, systolic murmur - GI/Abdominal GI/Abdominal exam: Present: normal bowel sounds, soft, no peritoneal signs. Absent: distended, tenderness - Extremities Exam Extremities exam: Present: warm, radial pulses palpable and symetrical. Absent : calf tenderness, cyanotic, pedal edema - Neurological Exam Neurological exam: Present: CN II-XII intact, no focal deficits. Absent: oriented X3 (X1), pronater drift, facial droop, speech deficit - Skin Skin exam: Present: dry, intact <Leonor,Antwan P - Last Filed: 10/27/16 17:57> Date of Encounter: 10/27/16 - Discharge Diagnosis (1) Acute respiratory failure Status: Acute Qualifiers: Respiratory failure complication: hypoxia Qualified Code(s): J96.01 - Acute respiratory failure with hypoxia (2) Anemia Status: Acute Qualifiers: Anemia type: unspecified type Qualified Code(s): D64.9 - Anemia, unspecified (3) GI bleed Status: Acute Qualifiers: GI bleed type/associated pathology: unspecified gastrointestinal hemorrhage type Qualified Code(s): K92.2 - Gastrointestinal hemorrhage, unspecified (4) Encephalopathy acute Status: Resolved (5) Aspiration pneumonia Status: Acute Qualifiers: Aspiration pneumonia type: due to regurgitated food Laterality: bilateral Lung location: upper lobe of lung Qualified Code(s): J69.0 - Pneumonitis due to inhalation of food and vomit (6) Serotonin syndrome Status: Resolved Procedures/tests Complete & Pending: Procedures Performed prior 72 hours Category Date Time Status CT abd pelvis wo iv oral only [CT] Routine Cat Scan 10/25/16 20:[address] chest wo con [CT] Routine Cat Scan 10/25/16 20:45 Completed ECG 12 lead ECG [ECG] Routine Y 10/24/16 17:11 Completed Date of admission: 10/15/16 02:45 Primary care physician: PCP NO Consults: 10/15/16 16:41 Consult to Neurology [CONS] Stat Consulting Provider: [facility] Reason for Consult: meningitis Call Completed: Yes 10/15/16 16:52 Consult to Critical Care [CONS] Stat Consulting Provider: [facility] Reason for Consult: serotonin syndrome. Call Completed: Yes 10/16/16 10:15 Consult to Interpret Exam [CONS] Routine Consulting Provider: Rajinder Overton Consult to Interpret Exam: Interpret EEG 10/17/16 11:07 Consult to Speech Therapy [CONS] Stat Comment: Evaluate, develop and implement POC Reason for Consult: AMS, now resolved, likely aspiration pneumonia. needs swallow eval. Call Completed: No 10/18/16 11:47 Consult to Gastroenterology [CONS] Routine Consulting Provider: [facility] Reason for Consult: 76 yo M admitted for AMS. Hgb dropped to as low as 7.5. ( +) stool occult test. S/p 1 unit of pRBC and Hgb 9.3 today. Now on Protonix IV BID. Appreciate further evaluation for GI bleed. Call Completed: Yes 10/26/16 11:47 Consult to Pastoral Services [CONS] Routine Comment: 10/26/16 11:49 Consult to Oncology [CONS] Routine Consulting Provider: [facility] Reason for Consult: colon mass Call Completed: Yes Consult to Surgery [CONS] Routine Consulting Provider: [facility] Reason for Consult: colon mass Call Completed: Yes Hospital course: Mr. Thrasher is a 76 year old male - Time Spent with Patient Total time spent providing and/or coordinating discharge services: - Constitutional Vitals: Temp Pulse Resp BP Pulse Ox 97.9 F 92 18 139/66 96 10/27/16 07:00 10/27/16 07:00 10/27/16 07:00 10/27/16 05:39 10/27/16 07:00 - Attending Attestation I examined this patient and my medical decision-making was reviewed with the CLOTH PICKER/PA/Advanced Practice Nurse/Resident Physician. I agree with the documented findings, disposition and treatment plan as described except to the extent set forth below.
--- NOTE | 2016-10-27 09:44 | Physician Discharge Referral ---
<Brigido Eden - Last Filed: 10/27/16 09:42> [facility] Referral Info Provider in Charge: Dr. Galvez Provider in Charge after Transfer: PCP Institutional Level of Care: Skilled - Diagnosis (1) Acute respiratory failure Priority: Primary Status: Acute (2) Colonic mass Priority: Secondary Status: Acute (3) GI bleed Priority: Secondary Status: Acute (4) Encephalopathy acute Priority: Secondary Status: Resolved (5) Serotonin syndrome Priority: Secondary Status: Resolved (6) Diastolic heart failure Priority: Secondary Status: Acute (7) Aspiration pneumonia Priority: Secondary Status: Acute (8) Atrial fibrillation Priority: Secondary Status: Chronic (9) Dementia Priority: Secondary Status: Chronic (10) Diabetes mellitus Priority: Secondary Status: Chronic (11) Hypertension Priority: Secondary Status: Resolved (12) Acute renal failure superimposed on chronic kidney disease Priority: Secondary Status: Resolved (13) Septic shock Priority: Secondary Status: Resolved (14) Hypokalemia Priority: Secondary Status: Acute - Transfer Medications Prescriptions: HYDROcodone/Acet 5/325 mg [[place] 5-325 mg] 1 tab PO Q6H PRN #18 tablet PRN Reason: Pain Potassium Chloride 10 meq PO DAILY #30 tab.er.prt Home Medications: Acetaminophen [Tylenol Arthritis] 650 mg PO Q6H PRN 08/09/16 [History] Aspirin Enteric Coated [Aspirin EC] 81 mg PO DAILY 08/09/16 [History] Atorvastatin [Lipitor] 40 mg PO HS 08/09/16 [History] Donepezil HCl [Aricept] 10 mg PO DAILY 08/09/16 [History] Furosemide [Lasix] 60 mg PO DAILY 08/09/16 [History] Glucagon,Human Recombinant [Glucagon Emergency Kit] 1 mg IM Q15M PRN 08/09/16 [ History] Insulin ASPART [NovoLOG] 2 - 10 unit SQ ACHS 08/09/16 [History] Memantine HCl 10 mg PO BID 08/09/16 [History] Tamsulosin [Flomax] 0.4 mg PO DAILY 08/09/16 [History] Vitamin E (Dl,Tocopheryl Acet) [Vitamin E] 400 unit PO DAILY 08/09/16 [History] Gabapentin [Neurontin] 100 mg PO DAILY #0 08/14/16 [Rx] Insulin Glargine,Hum.rec.anlog [Lantus Solostar] 20 unit SQ QAM #0 08/14/16 [Rx ] amLODIPine [Norvasc] 5 mg PO DAILY tablet 08/14/16 [Rx] hydrALAZINE [HydrALAZINE] 50 mg PO Q8HR tablet 08/14/16 [Rx] Cholecalciferol (D-3) [Vitamin D] 5,000 unit PO DAILY 10/15/16 [History] Magnesium Hydroxide [Milk of Magnesia] 2,400 mg PO DAILY PRN 10/15/16 [History] HYDROcodone/Acet 5/325 mg [[place] 5-325 mg] 1 tab PO Q6H PRN #18 tablet 10/27/16 [Rx] Potassium Chloride 10 meq PO DAILY #30 tab.er.prt 10/27/16 [Rx] Allergies/Adverse Reactions: Allergies No Known Allergies Allergy (Verified 08/09/16 13:49) - Respiratory Orders Oxygen / L per min (3L) Smoking Cessation: Smoking cessation has been advised. For more information, call the [employer] at 4-940-MAUB-NOW. - Ancillary Orders May use pressure relief devices daily prn, May consult with Dentist, Rn Endocrinology, Director Operating PRN - Advance Directives Power of Bonsai Culturist: Yes () Code Status: DNR-Arrest/Don't Intubate - Mobility Orders Bedrest - Rehabiliation Orders Rehab Potential: Fair Rehab Orders: Evaluation for Physical Therapy, Evaluation for Occupational Therapy - Treatments Skin tear care topically daily PRN per policy - Diet Orders Cardiac (ada) CERTIFICATION: I certify that the transfer of the above named patient to an Extended Care Facility is necessary for the continuing treatment of the diagnosis listed. The above information is true and accurate reflection of patient's current condition. Confidential - Redisclosure prohibited without a patient's written consent. <Antwan Galvez - Last Filed: 10/27/16 17:58> - Diagnosis (1) Acute respiratory failure Status: Acute (2) Anemia Status: Acute (3) GI bleed Status: Acute (4) Encephalopathy acute Status: Resolved (5) Aspiration pneumonia Status: Acute (6) Serotonin syndrome Status: Resolved - Respiratory Orders Smoking Cessation: Smoking cessation has been advised. For more information, call the [employer] Line at 9-118-FDVN-NOW. CERTIFICATION: I certify that the transfer of the above named patient to an Extended Care Facility is necessary for the continuing treatment of the diagnosis listed. The above information is true and accurate reflection of patient's current condition. Confidential - Redisclosure prohibited without a patient's written consent.
[2016-10-27] MEDS: Ferrous Sulfate Oral Soln 300 MG/5 ML UDC PO SCH (09:48)
[2016-10-27] MEDS: Aspirin Enteric Coated 81 MG Tablet PO SCH (09:48)
[2016-10-27] MEDS: Insulin LISPRO 300 UNITS/3 ML VIAL SQ SCH ×2 (09:50→09:53)
[2016-10-27] MEDS: Insulin DETEMIR 100 UNIT/ML X5UNITS SQ SCH (09:54)
--- NOTE | 2016-10-27 10:51 | General Surgery Progress Note ---
Date of Encounter: 10/27/16 Time of Encounter: 08:00 - Assessment and Plan (1) Colonic mass Status: Acute Rectosigmoid mass (non-obstructing) identified with colonoscopy complete by Dr. Bailey 10/25/16 pathology pending CEA ordered Oncology following Will await pathology and then discuss further plan of care with the patients and children (patient unable to make decisions regarding his plan of care due to severe dementia) Will likely need a PET scan as an outpatient Supportive care No urgent/emergent indication for surgery at this time. Patient is stable from a surgical standpoint. Surgery will sign out. Patient will be seen in follow-up after PET scan to determine course of action if surgery is warranted after informed family discussion. (2) Polyp of transverse colon Status: Acute Pathology pending Qualifiers: Colon polyp type: unspecified Qualified Code(s): D12.3 - Benign neoplasm of transverse colon (3) Anemia Status: Acute Qualifiers: Anemia type: unspecified type Qualified Code(s): D64.9 - Anemia, unspecified Subjective Patient reports: no new complaints, voiding w/o difficulty, flatus, bowel movement, afebrile Narrative: Patient was seen and examined. Patient is unable to appropriately answer questions due to his severe dementia. His daughter is at bedside. His daughter reports that he did not eat even one bite of his breakfast. Patient has limited short-term memory less than a minute. Significant decrease in appetite and weight loss. Patient denies pain. Objective Vital Signs - Last 8 Hours Temp Pulse Resp BP Pulse Ox 10/27/16 07:00 97.9 F 92 18 96 10/27/16 05:39 56 139/66 10/27/16 04:57 54 137/53 10/27/16 04:06 98.2 F 60 16 191/71 100 Intake and Output 10/26/16 10/27/16 10/27/16 23:59 07:59 15:59 Intake Total 100 / 100 250 / 250 Output Total 90 / 90 Balance 250 / 250 Intake: IV Fluids 100 / 100 100 / 100 Zosyn 3.375 GM In 100 / 100 100 / 100 Dextrose 5% (Minibag+) 100 ML 100 ML @ 25 mls/hr IVPB Q8H ANUPAM Rx#: [id number] Oral 150 / 150 Output: Urine 90 / 90 Other: # Voids 1 Weight 86.3 kg Blood Glucose* 158 150 Patient Weight 10/27/16 23:59 Weight 86.3 kg - General physical appearance well developed, well nourished, no distress, no pain, obese - Eyes PERRL, normal ocular movement - ENT normal mucosa, normocephalic, CN 2-12 grossly intact - Respiratory normal expansion, normal respiratory effort, other (Diminished by basilar bases) - Cardiovascular Cardiovascular exam: Present: RRR - Abdomen Abdomen: Present: bowel sounds present, soft, non tender - Integumentary no rash, no abnormal pigmentation - Neurologic CN 2-12 grossly intact, memory loss - Musculoskeletal normal posture - Psychiatric speech is normal - Labs 10/27/16 04:55 10/27/16 04:55 Diabetes panel 10/27/16 Range/Units 04:55 Sodium 143 (136-145) mEq/L Potassium 2.9 L (3.5-4.5) mEq/L Chloride 103 (98-109) mEq/L Carbon Dioxide 30 H (19-29) mEq/L BUN 22 (8-26) mg/dL Creatinine 1.68 H (0.72-1.25) mg/dL Glucose 124 H (70-99) mg/dL Calcium 9.2 (8.6-10.8) mg/dL Calcium panel 10/27/16 Range/Units 04:55 Calcium 9.2 (8.6-10.8) mg/dL Pituitary panel 10/27/16 Range/Units 04:55 Sodium 143 (136-145) mEq/L Potassium 2.9 L (3.5-4.5) mEq/L Chloride 103 (98-109) mEq/L Carbon Dioxide 30 H (19-29) mEq/L BUN 22 (8-26) mg/dL Creatinine 1.68 H (0.72-1.25) mg/dL Glucose 124 H (70-99) mg/dL Calcium 9.2 (8.6-10.8) mg/dL Adrenal panel 10/27/16 Range/Units 04:55 Sodium 143 (136-145) mEq/L Potassium 2.9 L (3.5-4.5) mEq/L Chloride 103 (98-109) mEq/L Carbon Dioxide 30 H (19-29) mEq/L BUN 22 (8-26) mg/dL Creatinine 1.68 H (0.72-1.25) mg/dL Glucose 124 H (70-99) mg/dL Calcium 9.2 (8.6-10.8) mg/dL Consult Discharge Plan - Plan Instructions: Potassium Chloride (By mouth), Atrial Fibrillation (DC), Diabetes Mellitus Type 2 in Adults (DC), Aspiration Pneumonia (DC), Aspiration Pneumonia (GEN), Chronic Obstructive Pulmonary Disease (DC), Chronic Hypertension (DC), Anemia (GEN), Pneumonia (DC) Additional Instructions: Please return to ER if you have signs of bloody vomiting, bloody stools, increased confusion, altered mental status, weakness. Please follow up with oncology and general surgery. Please stop taking sertraline, busprione, valproic acid, wellbutrin. Referrals: Conrad Bryan DO [Partnered Physician] - 10/31/16 10:50 am (rectosigmoid mass) China Singleton MD [Partnered Physician] - 11/16/16 9:50 am (rectosigmoid mass) NO,PCP [Primary Care Provider] - Prescriptions: HYDROcodone/Acet 5/325 mg [[place] 5-325 mg] 1 tab PO Q6H PRN #18 tablet PRN Reason: Pain Potassium Chloride 10 meq PO DAILY #30 tab.er.prt
== END 2016-10-27 15:10 | DRG 871 ==
LOC: EMEROO 19:28 → 2NENU 19:28 → SUATTDRO 10-15 02:45 → ICNU 10-15 17:24 → 2NENU 10-17 16:37
PROVIDERS: ADMIT Internal Medicine; ATTEND Internal Medicine
PROC: ENDOEBX (2016-10-25 14:20)